=== PATIENT | female | born 1955 | race Caucasian/White ===

== ENCOUNTER → 2018-05-13 | Outpatient (CLI) | payer BC, OTHER ==
--- NOTE | 2018-05-13 15:14 | XR ---
EXAMINATION TYPE: XR chest 2V DATE OF EXAM: 05/13/2018 COMPARISON: 06/06/2010 TECHNIQUE: PA and lateral views submitted. HISTORY: Shortness of breath and cough FINDINGS: The lungs are clear and there is no pneumothorax, pleural effusion, or focal pneumonia. Hyperinflat ion suggests COPD. Atherosclerotic change of aorta. Degenerative change of the spine. IMPRESSION: 1. No acute process.
== END | disposition home or self-care (01) ==
LOC: RADXRYALE 14:52
PROVIDERS: ATTEND Physician Assistant Medical
DX: J18.0 Bronchopneumonia, unspecified organism (principal)
CPT/HCPCS: 71046

== ENCOUNTER → 2018-06-04 | Outpatient (CLI) | payer BC, OTHER ==
--- NOTE | 2018-06-04 11:30 | US ---
EXAMINATION TYPE: US venous doppler duplex LE LT DATE OF EXAM: 06/04/2018 11:19 AM COMPARISON: NONE CLINICAL HISTORY: R609 EDEMA. Calf tightness. No redness. No swelling. No hx of DVT. No blood thin ners. SIDE PERFORMED: Left TECHNIQUE: The lower extremity deep venous system is examined utilizing real time linear array sonog favian with graded compression, doppler sonography and color-flow sonography. VESSELS IMAGED: External Iliac Vein (EIV) Common Femoral Vein Deep Femoral Vein Greater Saphenous Vein * Femoral Vein Popliteal Vein Small Saphenous Vein * Proximal Calf Veins (* superficial vessels) Left Leg: Negative for DVT Grayscale, color doppler, spectral doppler imaging performed of the deep veins of the left lower extr emity. There is normal flow, compressibility, vascular waveforms. IMPRESSION: No sonographic evidence of deep venous thrombosis within the left lower extremity.
== END | disposition home or self-care (01) ==
LOC: RADUSWWP 10:40
PROVIDERS: ATTEND Family Medicine
DX: R60.9 Edema, unspecified (principal)

== ENCOUNTER → 2018-09-28 | Outpatient (CLI) | payer BC ==
--- NOTE | 2018-09-29 13:50 | MM ---
Reason for exam: screening (asymptomatic). Last mammogram was performed 3 years and 8 months ago. History: Patient is postmenopausal and has history of other cancer at age 58. Benign right mammotome panel of the right breast, January 14, 2006. Physical Findings: A clinical breast exam by your physician is recommended on an annual basis and results should be correlated with mammographic findings. MG Screening Mammo w CAD Bilateral CC and MLO view(s) were taken. Prior study comparison: February 09, 2015, bilateral MG diagnostic mammo w CAD [facility]. April 10, 2009, bilateral digital screening mammogram. There are scattered fibroglandular densities. Previous mammotome biopsy in the right breast. Prominent lymph node axillary regions. ASSESSMENT: Benign, BI-RAD 2 RECOMMENDATION: Routine screening mammogram of both breasts in 1 year. Manage on a clinical basis with regard to axillary lymphadenopathy.
== END | disposition home or self-care (01) ==
LOC: RADMAMWWP 07:16
PROVIDERS: ATTEND Family Medicine
DX: Z12.31 Encounter for screening mammogram for malignant neoplasm of breast (principal)
CPT/HCPCS: 77067

== ENCOUNTER → 2018-09-28 | Outpatient (CLI) | payer BC ==
--- NOTE | 2018-09-28 12:32 | CTL ---
EXAMINATION TYPE: CT Low Dose Lung DATE OF EXAM ORDERED: 09/28/2018 HISTORY: . Lung cancer screening CT DLP: 85.[address] CTDI: 2.5 mGy Automated exposure control for dose reduction was used. SCREENING VISIT: Initial COMPARISON: 05/28/2010 TECHNIQUE: Low dose computed tomography scan was performed through the chest at 1 mm thick sections a nd reconstructed images in the coronal plane at [address] DIAGNOSTIC QUALITY: Satisfactory FINDINGS: LUNG NODULES: Present, detailed below: There is a 0.3 cm nodule within the posterior lateral right apex measuring 0.3 cm. Series 4 image 28. There is peripheral based nodule measuring 0.2 cm in the anterior left upper lung field. Series 4 opal ge 36. There is a peripheral 0.2 cm nodule within the right upper midlung. Series 4 image 73. There is a streak opacity and infiltrate within the lingula. Largest portion of this area measures 1. 1 cm in thickness. Series 4 image 177. Findings may be related atelectasis or pneumonia. Underlying m ass is not excluded. Some streak opacities in the posterior right lower lobe may be some atelectasis dependent right lung. This is somewhat more focal measuring 1.1 cm in diameter. Series 4 image 224. LUNGS: COPD: Severity: Mild Fibrosis: Severity: None Lymph nodes: None Other findings: None RIGHT PLEURAL SPACE: Effusion: None Calcification: None Thickening: None Pneumothorax: None LEFT PLEURAL SPACE: Effusion: None Calcification: None Thickening: None Pneumothorax: None HEART: Heart Size: Normal Coronary calcification: Mild Pericardial effusion: None OTHER FINDINGS: Upper abdomen: Normal Bony thorax: Normal Supraclavicular region: Unremarkable Other: Lymphadenopathy within the mediastinum is present. A 1.1 cm lymph node is in the superior medi astinum. Small lymphadenopathy is in the aortopulmonic window. Bilateral axillary adenopathy is prese nt. Several of these on the left are enlarged measuring 1.1 to 1.6 cm in size. IMPRESSION: 1. Scattered small nonspecific nodules. Short-term follow-up in [address] is recommen ded. 2. There are couple of larger areas of increased density more likely related atelectasis. Underlying masses cannot be excluded. Short-term follow-up is also recommended to evaluate these regions at the lung bases. 3. Enlarged axillary and superior mediastinal adenopathy of uncertain etiology. FOLLOW UP CT CHEST RECOMMENDATION: Yes, standard CT chest with contrast in [address] LUNG RAD: Lung-Rad 3 Probably Benign
== END | disposition home or self-care (01) ==
LOC: RADCTMAIN 06:56
PROVIDERS: ATTEND Family Medicine
DX: Z12.2 Encounter for screening for malignant neoplasm of respiratory organs (principal); F17.200 Nicotine dependence, unspecified, uncomplicated; R91.8 Other nonspecific abnormal finding of lung field; R59.0 Localized enlarged lymph nodes

== ENCOUNTER → 2020-08-17 | Outpatient (CLI) | payer OTHER ==
--- NOTE | 2020-08-17 14:34 | XR ---
EXAMINATION TYPE: XR chest 2V DATE OF EXAM: 08/17/2020 COMPARISON: Prior chest x-ray dated 05/13/[address] 09/28/2018 HISTORY: Chest pain TECHNIQUE: Frontal and lateral views of the chest are obtained. FINDINGS: There is a left-sided Port-A-Cath, central venous catheter shows the distal tip overlying s uperior vena cava. There are prominent lung volumes. Interstitial changes are present at the lung bas es. There is increased retrosternal airspace. There is no pleural effusion or pneumothorax seen. Ill- defined density present at the lingula the level of the left heart border likely representing scar. The cardiac silhouette size is within normal limits. The osseous structures are intact, bone minera lization is reduced, there is a spinal curvature. Possible slight loss of height superior endplate of the vertebral body at the level of the thoracic lumbar junction. The aorta is dense. IMPRESSION: No acute cardiopulmonary process.
== END | disposition home or self-care (01) ==
LOC: RADXRYALE 11:02
PROVIDERS: ATTEND Physician Assistant
DX: R07.9 Chest pain, unspecified (principal)
CPT/HCPCS: 71046

== ENCOUNTER → 2020-09-24 | Outpatient (CLI) | payer OTHER ==
--- NOTE | 2020-09-24 10:32 | XR ---
EXAMINATION TYPE: XR thoracic spine complete DATE OF EXAM: 09/24/2020 COMPARISON: NONE HISTORY: Pain TECHNIQUE: 3 views submitted FINDINGS: Alignment is anatomic. Mediport catheter seen is multilevel degenerative change. Some mild superior e ndplate compression deformity in the midthoracic spine of indeterminate age. Slight curvature of the spine. IMPRESSION: 1. Multilevel degenerative disc disease with an age indeterminate very mild superior endplate etta nathanael deformity in the midthoracic spine. Correlate with MRI.
--- NOTE | 2020-09-24 10:58 | XR ---
EXAMINATION TYPE: XR chest 2V DATE OF EXAM: 09/24/2020 COMPARISON: 08/17/2020 TECHNIQUE: PA and lateral views submitted. HISTORY: Shortness of breath FINDINGS: The lungs are clear and there is no pneumothorax, pleural effusion, or focal pneumonia. Hyperinflat ion. Degenerative change of the spine. Mediport catheter noted. Subsegmental changes at the lung base s. Diffuse osteopenia. Biapical pleural thickening. IMPRESSION: 1. COPD with linear atelectasis at the lung bases favored over early infiltrate..
== END | disposition home or self-care (01) ==
LOC: RADXRYALE 09:43
PROVIDERS: ATTEND Physician Assistant Medical
DX: M51.34 Other intervertebral disc degeneration, thoracic region (principal); R07.1 Chest pain on breathing; J44.9 Chronic obstructive pulmonary disease, unspecified; J98.11 Atelectasis
CPT/HCPCS: 71046; 72072

== ENCOUNTER → 2021-06-25 | Outpatient (CLI) | payer MEDICARE, OTHER ==
--- NOTE | 2021-06-25 15:52 | XR ---
EXAMINATION TYPE: XR chest 2V DATE OF EXAM: 06/25/2021 COMPARISON: 09/24/2020 TECHNIQUE: PA and lateral views submitted. HISTORY: Pain FINDINGS: The lungs are clear and there is no pneumothorax, pleural effusion, or focal pneumonia. Linear barboza ges involving the lung bases most typical of atelectasis or scar. Arthropathy of the shoulders. Medip ort catheter noted. There is a 5 mm nodule in the right upper lobe. Hyperinflation suggests COPD and there is degenerative change of the spine. IMPRESSION: 1. No acute process. Correlate for COPD. 2. 5 mm right upper lobe pulmonary nodule too small to characterize recommend short-term follow-up CT chest.
--- NOTE | 2021-06-25 15:58 | XR ---
EXAMINATION TYPE: XR ribs RT DATE OF EXAM: 06/25/2021 CLINICAL HISTORY: Pain TECHNIQUE: 4 views submitted COMPARISON: None FINDINGS: There is no acute fracture. Mediport catheter noted. No definite destructive changes are s een. Arthropathy of the right shoulder. IMPRESSION: 1. No displaced acute fracture. If symptoms persist consider bone scan..
== END | disposition home or self-care (01) ==
LOC: RADXRYALE 15:14
PROVIDERS: ATTEND Physician Assistant Medical
DX: R91.1 Solitary pulmonary nodule (principal); R06.02 Shortness of breath
CPT/HCPCS: 71046

== ENCOUNTER 2021-09-23 13:10 | Inpatient (IN) | payer MEDICARE, OTHER ==
[2021-09-23] MEDS ORDERED: ONDANSETRON ODT 4 MG TAB PO STA (13:16)
[2021-09-23] MEDS ORDERED: HYDROmorphone 0.5 MG/0.5 ML SYRINGE IM STA (13:16)
[2021-09-23 14:43] LABS: Chloride 103 mmol/L (98-107)
--- NOTE | 2021-09-23 14:44 | ED ---
General Adult HPI - General Chief complaint: Shortness of Breath Stated complaint: SOB Time Seen by Provider: 09/23/21 13:11 Source: patient, EMS Mode of arrival: EMS Limitations: no limitations - History of Present Illness Initial comments: Dictation was produced using [employer] dictation software. please excuse any grammatical, word or spelling errors. Chief Complaint: 66-year-old female past medical history of lymphoma presents to the emergency department for shortness of breath, tachypnea and hypoxia History of Present Illness: 66-year-old female she has past medical history of lymphoma. Patient receives chemotherapy. She went to her primary care physician's office. She was seen and evaluated there and found to be short of breath and hypoxic. Patient denies any chest pain. Denies any runny nose, sore throat. No fevers or constitutional symptoms. Patient states she's been short of breath for the last 3-4 days. She had completed a course of antibiotics. Patient denies any lower extremity symptoms. No history of blood clots. The ROS documented in this emergency department record has been reviewed and confirmed by me. Those systems with pertinent positive or negative responses have been documented in the HPI. All other systems are other negative and/or noncontributory. PHYSICAL EXAM: General Impression: Alert and oriented x3, not in acute distress HEENT: Normocephalic atraumatic, extra-ocular movements intact, pupils equal and reactive to light bilaterally, mucous membranes moist. Cardiovascular: Heart regular rate and rhythm Chest: 45 word sentences, no retractions, diminished lung sounds, equal bilaterally Abdomen: abdomen soft, non-tender, non-distended, no organomegaly Musculoskeletal: Pulses present and equal in all extremities, no peripheral edema Motor: no focal deficits noted Neurological: CN II-XII grossly intact, no focal motor or sensory deficits noted Skin: Intact with no visualized rashes Psych: Normal affect and mood ED course: 66-year-old female past medical history of lymphoma presents to the ER for worsening respiratory symptoms. Signs upon arrival shows 88% on room air, heart rate 102, rest of vital signs within acceptable limits. Some supplemental oxygen. EKG shows sinus tachycardia. Was strong clinical concern for pulmonary embolism. Patient went to CT angioma. CT does not show any pulmonary embolism. It did appear to be moderate emphysematous change with anterior lower lung fibrotic change noted. Patient's coronavirus positive. Metabolic panel is normal. She'll be admitted for hypoxia respiratory failure secondary to COVID-19 EKG interpretation: Ventricular rate 15, sinus tachycardia, NH interval 160, QRS 76, QTC 486. No NH prolongation, no QTC prolongation, no ST or T-wave changes noted. - Related Data Home Medications Medication Instructions Recorded Confirmed Fluticasone/Vilanterol [Breo 1 puff INHALATION RT-BID 09/23/21 09/23/21 Ellipta 200-25 Mcg Inhaler] Tiotropium 18 Mcg/Puff [Spiriva] 2 puff INHALATION RT-DAILY 09/23/21 09/23/21 Allergies Allergy/AdvReac Type Severity Reaction Status Date / Time No Known Allergies Allergy Verified 09/23/21 16:06 Review of Systems ROS Statement: Those systems with pertinent positive or pertinent negative responses have been documented in the HPI. ROS Other: All systems not noted in ROS Statement are negative. Past Medical History Past Medical History: Cancer, COPD Additional Past Medical History / Comment(s): Lymphoma History of Any Multi-Drug Resistant Organisms: None Reported Past Surgical History: Appendectomy Past Psychological History: No Psychological Hx Reported Smoking Status: Current every day smoker Past Alcohol Use History: None Reported Past Drug Use History: None Reported - Past Family History Father Family Medical History: Respiratory Disorder Additional Family Medical History / Comment(s): Father from pulmonary fibrosis. Mother Family Medical History: No Reported History Additional Family Medical History / Comment(s): Mother is healthy and 89yrs old. General Exam Limitations: no limitations Course Vital Signs 09/23/21 09/23/21 09/23/21 13:11 13:23 14:00 Temperature 99.4 F Pulse Rate 102 H Respiratory 22 20 Rate Blood Pressure 105/68 O2 Sat by Pulse 88 L 91 L Oximetry 09/23/21 09/23/21 09/23/21 17:27 19:27 21:00 Temperature 97.5 F L Pulse Rate 87 80 74 Respiratory 18 18 20 Rate Blood Pressure 102/68 119/76 105/68 O2 Sat by Pulse 90 L 92 L 96 Oximetry 09/23/21 09/23/21 09/24/21 22:00 23:00 00:00 Temperature Pulse Rate 66 63 60 Respiratory 20 18 18 Rate Blood Pressure 103/70 108/72 O2 Sat by Pulse 95 95 95 Oximetry 09/24/21 09/24/21 09/24/21 01:00 02:00 02:43 Temperature Pulse Rate 67 55 L 57 L Respiratory 18 18 18 Rate Blood Pressure 103/68 O2 Sat by Pulse 94 L 96 88 L Oximetry 09/24/21 09/24/21 09/24/21 04:00 05:00 06:00 Temperature 97.4 F L Pulse Rate 65 60 59 L Respiratory 18 18 18 Rate Blood Pressure 114/69 115/66 118/68 O2 Sat by Pulse 93 L 94 L 91 L Oximetry 09/24/21 09/24/21 09/24/21 07:57 08:17 10:51 Temperature Pulse Rate 76 85 Respiratory 16 24 Rate Blood Pressure 103/64 111/65 O2 Sat by Pulse 94 L 92 L 91 L Oximetry Medical Decision Making - Lab Data Result diagrams: 09/26/21 06:15 09/27/21 06:40 Lab Results 09/23/21 09/23/21 09/23/21 Range/Units 14:24 14:24 14:24 WBC 3.8 (3.8-10.6) k/uL RBC 4.54 (3.80-5.40) m/uL Hgb 14.0 (11.4-16.0) gm/dL Hct 41.0 (34.0-46.0) % MCV 90.4 (80.0-100.0) fL MCH 30.9 (25.0-35.0) pg MCHC 34.2 (31.0-37.0) g/dL RDW 14.9 (11.5-15.5) % Plt Count 182 (150-450) k/uL MPV 9.0 Neutrophils % 78 % Lymphocytes % 11 % Monocytes % 9 % Eosinophils % 0 % Basophils % 0 % Neutrophils # 3.0 (1.3-7.7) k/uL Lymphocytes # 0.4 L (1.0-4.8) k/uL Monocytes # 0.3 (0-1.0) k/uL Eosinophils # 0.0 (0-0.7) k/uL Basophils # 0.0 (0-0.2) k/uL PT 9.8 (9.0-12.0) sec INR 0.9 (<1.2) APTT 24.7 (22.0-30.0) sec Sodium 135 L (137-145) mmol/L Potassium 3.7 (3.5-5.1) mmol/L Chloride 103 (98-107) mmol/L Carbon Dioxide 19 L (22-30) mmol/L Anion Gap 13 mmol/L BUN 12 (7-17) mg/dL Creatinine 0.46 L (0.52-1.04) mg/dL Est GFR (CKD-EPI)AfAm >90 (>60 ml/min/1.73 sqM) Est GFR (CKD-EPI)NonAf >90 (>60 ml/min/1.73 sqM) Glucose 96 (74-99) mg/dL Plasma Lactic Acid Darren (0.7-2.0) mmol/L Calcium 8.6 (8.4-10.2) mg/dL Magnesium 1.7 (1.6-2.3) mg/dL Total Bilirubin 0.3 (0.2-1.3) mg/dL AST 56 H (14-36) U/L ALT 22 (4-34) U/L Alkaline Phosphatase 62 (38-126) U/L NT-Pro-B Natriuret Pep pg/mL Total Protein 6.0 L (6.3-8.2) g/dL Albumin 3.5 (3.5-5.0) g/dL Coronavirus (PCR) (Not Detectd) 09/23/21 09/23/21 09/23/21 Range/Units 14:24 14:24 14:24 WBC (3.8-10.6) k/uL RBC (3.80-5.40) m/uL Hgb (11.4-16.0) gm/dL Hct (34.0-46.0) % MCV (80.0-100.0) fL MCH (25.0-35.0) pg MCHC (31.0-37.0) g/dL RDW (11.5-15.5) % Plt Count (150-450) k/uL MPV Neutrophils % % Lymphocytes % % Monocytes % % Eosinophils % % Basophils % % Neutrophils # (1.3-7.7) k/uL Lymphocytes # (1.0-4.8) k/uL Monocytes # (0-1.0) k/uL Eosinophils # (0-0.7) k/uL Basophils # (0-0.2) k/uL PT (9.0-12.0) sec INR (<1.2) APTT (22.0-30.0) sec Sodium (137-145) mmol/L Potassium (3.5-5.1) mmol/L Chloride (98-107) mmol/L Carbon Dioxide (22-30) mmol/L Anion Gap mmol/L BUN (7-17) mg/dL Creatinine (0.52-1.04) mg/dL Est GFR (CKD-EPI)AfAm (>60 ml/min/1.73 sqM) Est GFR (CKD-EPI)NonAf (>60 ml/min/1.73 sqM) Glucose (74-99) mg/dL Plasma Lactic Acid Darren 1.2 (0.7-2.0) mmol/L Calcium (8.4-10.2) mg/dL Magnesium (1.6-2.3) mg/dL Total Bilirubin (0.2-1.3) mg/dL AST (14-36) U/L ALT (4-34) U/L Alkaline Phosphatase (38-126) U/L NT-Pro-B Natriuret Pep 245 pg/mL Total Protein (6.3-8.2) g/dL Albumin (3.5-5.0) g/dL Coronavirus (PCR) Detected A (Not Detectd) Disposition Clinical Impression: COVID Disposition: ADMITTED IP TO THIS [facility] Condition: Critical
[2021-09-23 14:45] LABS: ALT 22 U/L (4-34); AST 56 U/L (14-36); African American GFR (CKD) >90 (>60 ml/min/1.73 sqM); Albumin 3.5 g/dL (3.5-5.0); Alkaline Phosphatase 62 U/L (38-126); Anion Gap 13 mmol/L; Blood Urea Nitrogen 12 mg/dL (7-17); Calcium 8.6 mg/dL (8.4-10.2); Carbon Dioxide 19 mmol/L (22-30); Glucose 96 mg/dL (74-99); Magnesium 1.7 mg/dL (1.6-2.3); Non-African American GFR(CKD) >90 (>60 ml/min/1.73 sqM); Potassium 3.7 mmol/L (3.5-5.1); Sodium 135 mmol/L (137-145); Total Bilirubin 0.3 mg/dL (0.2-1.3)
[2021-09-23] MEDS ORDERED: DEXAMETHASONE SOD PHOSPHATE 10 MG/ML 1 ML VIAL IV STA (14:53)
--- NOTE | 2021-09-23 14:53 | CT ---
EXAMINATION TYPE: CT angio chest DATE OF EXAM: 09/23/2021 COMPARISON: Chest CT June 06, 2010 HISTORY: SOB, elevated d dimer, lymphoma CT DLP: 227.5 mGycm. Automated Exposure Control for Dose Reduction was Utilized. CONTRAST: CTA scan of the thorax is performed with IV Contrast, patient injected with 71 mL of Isovue 370, pulm onary embolism protocol. MIP Images are created on CT scanner and reviewed. FINDINGS: LUNGS: Moderate underlying emphysematous change is redemonstrated greatest in the upper lungs. Modera te parenchymal fibrotic changes in the mid to lower lungs greatest anteriorly is now present new from prior study. No new Greater than 5 mm noncalcified pulmonary nodules or masses. No pleural effusion or pneumothorax seen bilaterally. MEDIASTINUM: There is satisfactory enhancement of the pulmonary artery and its branches, there is no CT evidence for pulmonary embolism. Satisfactory enhancement of the aorta with moderate peripheral p laque in the aortic arch and descending aorta. There are no new greater than 1 cm hilar or mediastina l lymph nodes. No cardiomegaly or pericardial effusion is seen. Coronary artery calcifications rede monstrated. Suspected lower pole right thyroid nodule coronal image 71 extends into anterosuperior me diastinum unchanged from 2018 low dose lung screening CT OTHER: Left-sided subclavian Mediport catheter has tip terminating in SVC. IMPRESSION: No CT evidence for acute pulmonary embolism. Moderate emphysematous change redemonstrated . New moderate anterior lower lung fibrotic changes noted.
[2021-09-23 14:54] LABS: INR 0.9 (<1.2); Partial Thromboplastin Time 24.7 sec (22.0-30.0); Prothrombin Time 9.8 sec (9.0-12.0)
[2021-09-23] MEDS ORDERED: NALOXONE 0.4 MG/ML 1 ML VIAL IV PRN (14:56)
[2021-09-23] MEDS ORDERED: ACETAMINOPHEN TAB 325 MG TAB PO PRN (14:56)
[2021-09-23] MEDS: SODIUM CHLORIDE 0.9% 1,000 ML IV SCH (15:02)
[2021-09-23 15:53] LABS: Basophils % (A) 0 %; Eosinophils % (A) 0 %; Lymphocytes # (A) 0.4 k/uL (1.0-4.8); Lymphocytes % (A) 11 %; MCH 30.9 pg (25.0-35.0); MCHC 34.2 g/dL (31.0-37.0); MCV 90.4 fL (80.0-100.0); Monocytes # (A) 0.3 k/uL (0-1.0); Monocytes % (A) 9 %; Neutrophils % (A) 78 %; Platelet Count 182 k/uL (150-450); RBC 4.54 m/uL (3.80-5.40); RDW 14.9 % (11.5-15.5); WBC 3.8 k/uL (3.8-10.6)
--- NOTE | 2021-09-23 15:55 | P.HPIM ---
History of Present Illness Comments of shortness of breath nausea generalized weakness denied any fever patient recently completed chemotherapy in early August for lymphoma. Patient denied dysuria nausea vomiting patient is found to have Covid 19. Patient had a CT angios the chest which did not show any significant infiltrate but did show some fibrotic changes and emphysematous changes no pulmonary embolus him on the CT although patient is requiring 5 L of oxygen at this time. Pulmonary was consulted patient doesn't have any wheezing on exam patient does smoke. REVIEW OF SYSTEMS: CONSTITUTIONAL: As mentioned in HPI HEENT: No recent visual problems or hearing problems. Denied any sore throat. CARDIOVASCULAR: No chest pain, orthopnea, PND, no palpitations, no syncope. PULMONARY: As mentioned in HPI GASTROINTESTINAL: No diarrhea, no nausea, no vomiting, no abdominal pain. NEUROLOGICAL: No headaches, no weakness, no numbness. HEMATOLOGICAL: Denies any bleeding or petechiae. GENITOURINARY: Denies any burning micturition, frequency, or urgency. MUSCULOSKELETAL/RHEUMATOLOGICAL: Denies any joint pain, swelling, or any muscle pain. ENDOCRINE: Denies any polyuria or polydipsia. The rest of the 14-point review of systems is negative. PHYSICAL EXAMINATION: GENERAL: The patient is alert and oriented x3, not in any acute distress. Well developed, well nourished. HEENT: Pupils are round and equally reacting to light. EOMI. No scleral icterus. No conjunctival pallor. Normocephalic, atraumatic. No pharyngeal erythema. No thyromegaly. CARDIOVASCULAR: S1 and S2 present. No murmurs, rubs, or gallops. PULMONARY: Chest is clear to auscultation, no wheezing or crackles. ABDOMEN: Soft, nontender, nondistended, normoactive bowel sounds. No palpable organomegaly. MUSCULOSKELETAL: No joint swelling or deformity. EXTREMITIES: No cyanosis, clubbing, or pedal edema. NEUROLOGICAL: Gross neurological examination did not reveal any focal deficits. SKIN: No rashes. Assessment and plan -Acute Hypoxic respiratory failure probably secondary to Covid 19 pneumonia pulmonology was consulted patient will be started on Covid 19 vitamins, Decadron. -Mild hypovolemic hyponatremia was started on IV fluids, will obtain a BNP -Nicotine use history: Counseling was provided -Lymphoma: Recently completed chemotherapy - DVT prophylaxis Past Medical History Past Medical History: Cancer, COPD Additional Past Medical History / Comment(s): Lymphoma History of Any Multi-Drug Resistant Organisms: None Reported Past Surgical History: Appendectomy Past Psychological History: No Psychological Hx Reported Smoking Status: Current every day smoker Past Alcohol Use History: None Reported Past Drug Use History: None Reported Medications and Allergies Allergies Allergy/AdvReac Type Severity Reaction Status Date / Time No Known Allergies Allergy Verified 09/23/21 13:21 Physical Exam Vitals: Vital Signs Temp Pulse Resp BP Pulse Ox 09/23/21 14:00 20 09/23/21 13:23 91 L 09/23/21 13:11 99.4 F 102 H 22 105/68 88 L Intake and Output 09/23/21 09/23/21 09/23/21 06:59 14:59 22:59 Other: Weight 69.4 kg Results CBC & Chem 7: 09/23/21 14:24 09/23/21 14:24 Labs: Abnormal Lab Results - Last 24 Hours (Table) 09/23/21 09/23/21 09/23/21 Range/Units 14:24 14:24 14:24 Lymphocytes # 0.4 L (1.0-4.8) k/uL Sodium 135 L (137-145) mmol/L Carbon Dioxide 19 L (22-30) mmol/L Creatinine 0.46 L (0.52-1.04) mg/dL AST 56 H (14-36) U/L Total Protein 6.0 L (6.3-8.2) g/dL Coronavirus (PCR) Detected A (Not Detectd)
[2021-09-23] MEDS: ASCORBIC ACID 500 MG TAB PO SCH (21:31)
[2021-09-24] MEDS: ENOXAPARIN 40 MG/0.4 ML SYRINGE SQ SCH (08:18)
[2021-09-24] MEDS: ZINC SULFATE 220 MG CAP PO SCH (08:19)
[2021-09-24] MEDS: ASCORBIC ACID 500 MG TAB PO SCH ×2 (08:19→20:10)
[2021-09-24] MEDS: dexAMETHasone 2 MG TAB PO SCH (08:19)
[2021-09-24 09:30] LABS: HCT 41.3 % (37.2-46.3); HGB 13.2 g/dL (12.0-15.0); MCH 29.4 pg (27.0-32.0); Mean Platelet Volume 12.2 fL (9.5-12.2); Platelet Count 153 X 10*3/uL (140-440); RBC 4.49 X 10*6/uL (4.10-5.20)
[2021-09-24] MEDS ORDERED: REMDESIVIR 200 MG in SODIUM CHLORIDE 0.9% 250 ML IVPB ONE (11:00)
--- NOTE | 2021-09-24 11:39 | P.CNPUL ---
History of Present Illness Consult date: 09/24/21 Requesting physician: Lars Ardon Reason for consult: dyspnea, hypoxemia, abnormal CXR/CT Chief complaint: Shortness of breath, weakness, poor appetite History of present illness: This is a 66-year-old female patient with a known history of chronic obstructive pulmonary disease and maintained on Breo and Spiriva in the outpatient setting, chronic tobacco dependence, lymphoma and received her last round of R CHOP on 08/26/[address] Kimbrough out of [place]. He presented here to the emergency room yesterday with increasing shortness of breath, poor appetite, generalized weakness and fatigue. She tested positive for COVID-19. She did receive the vaccination in March but no booster. DT angiogram ruled out pulmonary embolism. There is moderate emphysema and fibrotic changes, no significant groundglass opacities. Count 1.5. Hemoglobin 13.2. Leukocytes 0.4. D-dimer 0.86. Sodium 135. Potassium 3.6. Creatinine 0.46. AST 56. ALT 22. ProBNP 245. She's been initiated on Decadron, Lovenox, vitamin supplements. Continued on rhonchi dilators. She is seen today in consultation in the emergency department. She is currently sitting up on the stretcher. Awake and alert in no acute distress. Some dyspnea with minimal activity and conversation. She is requiring 6 L high flow nasal cannula to maintain O2 saturation in the 90s. Review of Systems REVIEW OF SYSTEMS: CONSTITUTIONAL: Generalized weakness, fatigue. Denies any recent significant weight loss or weight gain. EYES: Denies change in vision. EARS, NOSE, MOUTH, THROAT: Denies headaches, denies sore throat. CARDIOVASCULAR: Denies chest pain, palpitations or syncopal episodes. RESPIRATORY: Positive for shortness of breath, cough, congestion no hemoptysis. GASTROINTESTINAL: Denies change in appetite, denies abdominal pain GENITOURINARY: Denies hematuria, denies infections. MUSKULOSKELETAL: Denies pain, denies swelling. INTEGUMENTARY: Denies rash, denies eczema. NEUROLOGICAL: Denies recent memory loss, no recent seizure activity. PSYCHIATRIC: Denies anxiety, denies depression. HEMATOLOGIC/LYMPHATIC: Denies anemia, denies enlarged lymph nodes. Past Medical History Past Medical History: Cancer, COPD Additional Past Medical History / Comment(s): Lymphoma diagnosed in 2010 or 2011/completed chemo (RCHOP) in August 2021/being treated in [facility], bronchitis, diverticular disease, stomach ulcer in her 20s. History of Any Multi-Drug Resistant Organisms: None Reported Past Surgical History: Appendectomy, Breast Surgery Additional Past Surgical History / Comment(s): Bone marrow biopsy, several lymph node biopsies, colonoscopy, R breast benign biopsy, bilateral cataract removal/lens implants. Past Anesthesia/Blood Transfusion Reactions: No Reported Reaction, Motion Sickness Smoking Status: Current every day smoker - Past Family History Father Family Medical History: Respiratory Disorder Additional Family Medical History / Comment(s): Father from pulmonary fibrosis. Mother Family Medical History: No Reported History Additional Family Medical History / Comment(s): Mother is healthy and 89yrs old. Medications and Allergies Home Medications Medication Instructions Recorded Confirmed Type Fluticasone/Vilanterol [Breo 1 puff INHALATION RT-BID 09/23/21 09/23/21 History Ellipta 200-25 Mcg Inhaler] Tiotropium 18 Mcg/Puff [Spiriva] 2 puff INHALATION RT-DAILY 09/23/21 09/23/21 History Allergies Allergy/AdvReac Type Severity Reaction Status Date / Time No Known Allergies Allergy Verified 09/23/21 16:06 Physical Exam Vitals: Vital Signs Temp Pulse Resp BP Pulse Ox 09/24/21 10:51 85 24 111/65 91 L 09/24/21 08:17 76 16 103/64 92 L 09/24/21 07:57 94 L 09/24/21 06:00 97.4 F L 59 L 18 118/68 91 L 09/24/21 05:00 60 18 115/66 94 L 09/24/21 04:00 65 18 114/69 93 L 09/24/21 02:43 57 L 18 88 L 09/24/21 02:00 55 L 18 96 09/24/21 01:00 67 18 103/68 94 L 09/24/21 00:00 60 18 95 09/23/21 23:00 63 18 108/72 95 09/23/21 22:00 66 20 103/70 95 09/23/21 21:00 97.5 F L 74 20 105/68 96 09/23/21 19:27 80 18 119/76 92 L 09/23/21 17:27 87 18 102/68 90 L 09/23/21 14:00 20 09/23/21 13:23 91 L 09/23/21 13:11 99.4 F 102 H 22 105/68 88 L Intake and Output 09/23/21 09/24/21 09/24/21 22:59 06:59 14:59 Other: Weight 69.4 kg GENERAL EXAM: Alert, very pleasant 66-year-old female patient, on 6 L nasal ca nnula, fairly comfortable in no apparent distress. HEAD: Normocephalic. EYES: Normal reaction of pupils, equal size. NOSE: Clear with pink turbinates. THROAT: No erythema or exudates. NECK: No masses, no JVD. CHEST: No chest wall deformity. LUNGS: Equal air entry with faint end expiratory wheeze, diminished. CVS: S1 and S2 normal with no audible murmur, regular rhythm. ABDOMEN: No hepatosplenomegaly, normal bowel sounds, no guarding or rigidity. SPINE: No scoliosis or deformity SKIN: No rashes CENTRAL NERVOUS SYSTEM: No focal deficits, tone is normal in all 4 extremities. EXTREMITIES: There is no peripheral edema. No clubbing, no cyanosis. Peripheral pulses are intact. Results - Laboratory Findings CBC and BMP: 09/24/21 05:48 09/23/21 14:24 PT/INR, D-dimer PT 9.8 sec (9.0-12.0) 09/23/21 14:24 INR 0.9 (<1.2) 09/23/21 14:24 D-Dimer 0.86 mg/L FEU (<0.60) H 09/23/21 17:27 Abnormal lab findings: Abnormal Labs 09/23/21 09/23/21 09/23/21 14:24 14:24 14:24 WBC Lymphocytes # 0.4 L D-Dimer Sodium 135 L Carbon Dioxide 19 L Creatinine 0.46 L AST 56 H Total Protein 6.0 L Coronavirus (PCR) Detected A 09/23/21 09/24/21 17:27 05:48 WBC 1.50 L Lymphocytes # D-Dimer 0.86 H Sodium Carbon Dioxide Creatinine AST Total Protein Coronavirus (PCR) - Diagnostic Findings CT scan - chest: image reviewed Assessment and Plan Assessment: 1 Acute hypoxemic respiratory failure secondary to COVID-19 infection. Vaccinated. No booster. Initiated on Remdesivir today 09/24/2021. 2 Lymphoma, recently received R CHOP on 08/26/2021 at [facility] 3 Acute exacerbation of chronic obstructive pulmonary disease 4 Chronic and ongoing tobacco dependence Plan: The patient was seen and evaluated CAT scan and labs reviewed Initiate Remdesivir Continue Decadron, Lovenox, vitamin supplements Continue bronchodilators Check inflammatory markers Check a pro-calcitonin Chest x-ray in a.m. Titrate the FiO2 as tolerated We will continue to follow and make further recommendations based on her clinical status I, the cosigning physician, performed a history & physical examination of the patient. Lungs sounds with end expiratory wheeze, diminished Maintaining good O2 saturations in the 90s on 6 L/m per nasal cannula. I discussed the assessment and plan of care with my nurse practitioner, Kusum Blandon. I attest to the above consultation as dictated by her. Time with Patient: Greater than 30
[2021-09-24 11:44] LABS: African American GFR (CKD) 117.7 (60.0-200.0); BUN/Creat Ratio 25.2 Ratio (12.00-20.00); Blood Urea Nitrogen 12.6 mg/dL (9.0-27.0); Calcium 8.8 mg/dL (8.7-10.3); Non-African American GFR(CKD) 101.6 (60.0-200.0); Potassium 4.6 mmol/L (3.5-5.5)
[2021-09-24] MEDS: SYMBICORT 160-4.5 MCG INHALER INHALATION SCH ×2 (11:57→19:35)
--- NOTE | 2021-09-24 14:41 | P.PN ---
Subjective Progress Note Date: 09/24/21 Comments of shortness of breath nausea generalized weakness denied any fever patient recently completed chemotherapy in early August for lymphoma. Patient denied dysuria nausea vomiting patient is found to have Covid 19. Patient had a [address] angios the chest which did not show any significant infiltrate but did show some fibrotic changes and emphysematous changes no pulmonary embolus him on the CT although patient is requiring 5 L of oxygen at this time. Pulmonary was consulted patient doesn't have any wheezing on exam patient does smoke. 09/24/2021 Patient evaluated in the EC while pending bed on the medical floor. She denies any cough, does report some shortness of breath at rest. She is now on 6L Nasal cannula with an oxygen saturation of 92%. She denies any chest pain today. Denies nausea vomiting, reports diarrhea today. Blood pressures on the lower side 92/60 while in the room, patient states this is low for her she usually runs in the 130's to 140's. Heart rate is 85. Labs today show a WBC count of 1.50, hemoglobin of 13.2, D-Dimer yesterday 0.86, sodium 141, potassium 4.6, B 12, Creatinine 0.5. Glucose 138. Repeat labs and inflammatory markers will be repeated tomorrow. She is being followed closely by pulmonary services. Patient follows with oncology at [facility]. No other complaints today. She is on Vitamin C, Decadron, lovenox, zinc, and was started on Remdesivir. Additionally, she continues to smoke about 1/2 pack per day, history of COPD on symbicort. Prognosis is guarded, monitor respiratory status closely. ROS Constitutional: Denies fever, chills, reports fatigue Cardio vascular: denied any chest pain, palpitations Gastrointestinal denied any nausea vomiting, reports diarrhea, denies blood in the stool Pulmonary: Denied any cough, reports shortness of breath with exertion Neurologic denied any new focal deficits All inpatient medications were reviewed and appropriate changes in these medications as dictated in the interval history and assessment and plan. PHYSICAL EXAMINATION: GENERAL: The patient is alert and oriented x3, not in any acute distress. Well developed, well nourished. on Nasal cannula HEENT: Pupils are round and equally reacting to light. EOMI. No scleral icterus. No conjunctival pallor. Normocephalic, atraumatic. No pharyngeal erythema. No thyromegaly. CARDIOVASCULAR: S1 and S2 present. No murmurs, rubs, or gallops. PULMONARY: Expiratory wheezing, diminished lung sounds all lung moss ABDOMEN: Soft, nontender, nondistended, normoactive bowel sounds. No palpable organomegaly. MUSCULOSKELETAL: No joint swelling or deformity. EXTREMITIES: No cyanosis, clubbing, or pedal edema. NEUROLOGICAL: Gross neurological examination did not reveal any focal deficits. SKIN: No rashes. Assessment and plan Assessment -Acute Hypoxic respiratory failure secondary to Covid 19 pneumonia, Started on remdesivir -COPD with acute exacerbation secondary to above -Lymphoma with recent chemotherapy in Nov, WBC count 1.5 -Mild hypovolemic hyponatremia, -Nicotine use history: Counseling was provided DVT prophylaxis:Lovenox GI: prophylaxis: Pepcid Plan Continue oxygen support, titrate as needed Continue with Remdesivir, Zinc, Lovenox, decadron, vitamins Continue to encourage oral intake Repeat labs and inflammatory markers in the AM Chest x-ray in the AM Prognosis remains guarded for this patient Objective - Vital Signs Vital signs: Vital Signs Temp 97.4 F L 09/24/21 06:00 Pulse 76 09/24/21 08:17 Resp 16 09/24/21 08:17 BP 103/64 09/24/21 08:17 Pulse Ox 92 L 09/24/21 08:17 Intake & Output 09/23/21 09/24/21 09/24/21 18:59 06:59 18:59 Weight 69.4 kg - Labs CBC & Chem 7: 09/24/21 05:48 09/24/21 05:48 Labs: Abnormal Lab Results - Last 24 Hours (Table) 09/23/21 09/23/21 09/23/21 Range/Units 14:24 14:24 14:24 Lymphocytes # 0.4 L (1.0-4.8) k/uL D-Dimer (<0.60) mg/L FEU Sodium 135 L (137-145) mmol/L Carbon Dioxide 19 L (22-30) mmol/L Creatinine 0.46 L (0.52-1.04) mg/dL AST 56 H (14-36) U/L Total Protein 6.0 L (6.3-8.2) g/dL Coronavirus (PCR) Detected A (Not Detectd) 09/23/21 Range/Units 17:27 Lymphocytes # (1.0-4.8) k/uL D-Dimer 0.86 H (<0.60) mg/L FEU Sodium (137-145) mmol/L Carbon Dioxide (22-30) mmol/L Creatinine (0.52-1.04) mg/dL AST (14-36) U/L Total Protein (6.3-8.2) g/dL Coronavirus (PCR) (Not Detectd)
[2021-09-24] MEDS: TIOTROPIUM 2.5 MCG INHALER INHALATION SCH (17:27)
[2021-09-24] MEDS: SODIUM CHLORIDE 0.9% 1,000 ML IV SCH (20:10)
[2021-09-25] MEDS: FAMOTIDINE 20 MG TAB PO SCH (08:55)
[2021-09-25] MEDS: ZINC SULFATE 220 MG CAP PO SCH (08:55)
[2021-09-25] MEDS: ASCORBIC ACID 500 MG TAB PO SCH ×2 (08:55→21:16)
[2021-09-25] MEDS: ENOXAPARIN 40 MG/0.4 ML SYRINGE SQ SCH (08:55)
[2021-09-25] MEDS: dexAMETHasone 2 MG TAB PO SCH (08:55)
--- NOTE | 2021-09-25 09:33 | P.PN ---
Subjective Progress Note Date: 09/25/21 This is a 66-year-old female patient with a known history of chronic obstructive pulmonary disease and maintained on Breo and Spiriva in the outpatient setting, chronic tobacco dependence, lymphoma and received her last round of R CHOP on 08/26/[address] Kimbrough out of [place]. He presented here to the emergency room yesterday with increasing shortness of breath, poor appetite, generalized weakness and fatigue. She tested positive for COVID-19. She did receive the vaccination in March but no booster. DT angiogram ruled out pulmonary embolism. There is moderate emphysema and fibrotic changes, no significant groundglass opacities. Count 1.5. Hemoglobin 13.2. Leukocytes 0.4. D-dimer 0.86. Sodium 135. Potassium 3.6. Creatinine 0.46. AST 56. ALT 22. ProBNP 245. She's been initiated on Decadron, Lovenox, vitamin supplements. Continued on rhonchi dilators. She is seen today in consultation in the emergency department. She is currently sitting up on the stretcher. A wake and alert in no acute distress. Some dyspnea with minimal activity and conversation. She is requiring 6 L high flow nasal cannula to maintain O2 saturation in the 90s. On 2020 patient seen in follow-up on medical surgical floor, she is currently on 6 L of oxygen, her pulse ox is 92 to 97%. She is awake and alert, she states she is not coughing much today, improved since yesterday, she reports some nasal drainage, at times clear at times it does have some color, she is mildly dyspneic with conversation, however her lung sounds are clear, without crackles, wheezes or rhonchi. Patient does have a history of COPD, severity which is not known to us at this time, she states she never had a PFT, however she does not wear oxygen on a regular basis, she is maintained on Breo and Sp iriva on an outpatient basis. Denies any chest discomfort, she remains on Decadron, she remains on prophylactic Lovenox, CTA chest was negative for acute pulmonary embolism, there were moderate emphysematous changes and moderate anterior lower lung fibrotic changes which was new. Patient was started on Remdesivir yesterday on 09/24/2021, today is day 2 of treatment. Her labs have been reviewed, d-dimer is improved and is down to 0.50, pro calcitonin level was negative, inflammatory markers are pending for today. Objective - Vital Signs Vital signs: Vital Signs Temp 97.6 F 09/25/21 06:00 Pulse 61 09/25/21 09:00 Resp 18 09/25/21 09:00 BP 123/76 09/25/21 06:00 Pulse Ox 97 09/25/21 06:00 Intake & Output 09/24/21 09/25/21 09/25/21 18:59 06:59 18:59 Intake Total 190 Balance 190 Weight 69.4 kg Intake: Intake, IV Titration 40 Amount Sodium Chloride 0.9% 1, 40 000 ml @ 20 mls/hr IV . Q24H ALEXANDRE Rx#:[id number] Oral 150 Other: # Voids 1 - Exam GENERAL EXAM: Alert, very pleasant, 66-year-old white female, on 6 L of oxygen the pulse ox between 92-97% mildly dyspneic with conversation, but no acute distress HEAD: Normocephalic/atraumatic. EYES: Normal reaction of pupils, equal size. Conjunctiva pink, sclera white. NOSE: Clear with pink turbinates. THROAT: No erythema or exudates. NECK: No masses, no JVD, no thyroid enlargement, no adenopathy. CHEST: No chest wall deformity. Symmetrical expansion. LUNGS: Equal air entry with no crackles, wheeze, rhonchi or dullness. CVS: Regular rate and rhythm, normal S1 and S2, no gallops, no murmurs, no rubs ABDOMEN: Soft, nontender. No hepatosplenomegaly, normal bowel sounds, no guarding or rigidity. EXTREMITIES: No clubbing, no edema, no cyanosis, 2+ pulses and upper and lower extremities. MUSCULOSKELETAL: Muscle strength and tone normal. SPINE: No scoliosis or deformity SKIN: No rashes CENTRAL NERVOUS SYSTEM: Alert and oriented -3. No focal deficits, tone is normal in all 4 extremities. PSYCHIATRIC: Alert and oriented -3. Appropriate affect. Intact judgment and insight. - Labs CBC & Chem 7: 09/24/21 05:48 09/24/21 05:48 Labs: Abnormal Lab Results - Last 24 Hours (Table) 09/24/21 09/24/21 Range/Units 05:48 05:48 WBC 1.50 L (4.50-10.00) X 10*3/uL Carbon Dioxide 15.0 L (20.0-27.5) mmol/L Anion Gap 19.00 H (10.00-18.00) mmol/L Creatinine 0.5 L (0.6-1.5) mg/dL BUN/Creatinine Ratio 25.20 H (12.00-20.00) Ratio Glucose 138 H (70-110) mg/dL Assessment and Plan Plan: Assessment: #1. Acute hypoxic respiratory failure related to acute COVID-19 infection. Patient is status post completed vaccination in February 2021, has not received a booster yet. Initiated on Remdesivir on 09/24/2021 #2. Non-Hodgkin's B-cell lymphoma, patient has completed our CHOP therapy on 08/27/2021 at [facility], follows with Dr. Kimbrough #3. Acute exacerbation of COPD, improving #4. Nicotine dependence, carries over [id number] smoking history #5. History of COPD, not oxygen dependent at baseline, maintained on Breo Ellipta and Spiriva on an outpatient basis #6. Cataract surgery bilateral #7. Pulmonary fibrotic changes in the left lung, as seen on the CTA chest #8. History of diverticulosis Plan: Continue Remdesivir, today is day 2 of treatment Continue current dose Decadron Continue Symbicort, Spiriva, Continue current dose Lovenox Obtain follow-up d-dimer and inflammatory markers Wean FiO2 to keep O2 saturation is at or above 90% We'll continue to follow her clinical course make recommendations accordingly I performed a history & physical examination of the patient and discussed their management with my nurse practitioner, Brenda Figueroa. I reviewed the nurse practitioner's note and agree with the documented findings and plan of care. Lung sounds are positive for diffuse wheezes throughout the lung moss. The findings and the impression was discussed with the patient. I attest to the documentation by the nurse practitioner. Time with Patient: Less than 30
[2021-09-25] MEDS: TIOTROPIUM 2.5 MCG INHALER INHALATION SCH ×2 (09:38→23:33)
[2021-09-25] MEDS: SYMBICORT 160-4.5 MCG INHALER INHALATION SCH ×2 (09:38→20:49)
[2021-09-25 09:44] LABS: Basophils # (A) 0 X 10*3/uL (0.00-0.10); Basophils % (A) 0 %; Eosinophils # (A) 0 X 10*3/uL (0.04-0.35); Eosinophils % (A) 0 %; HCT 37.7 % (37.2-46.3); HGB 12.3 g/dL (12.0-15.0); Lymphocytes # (A) 0.34 X 10*3/uL (0.90-5.00); Lymphocytes % (A) 9.9 %; MCH 29.7 pg (27.0-32.0); MCHC 32.6 g/dL (32.0-37.0); MCV 91.1 fL (80.0-97.0); Mean Platelet Volume 12.1 fL (9.5-12.2); Monocytes # (A) 0.49 X 10*3/uL (0.20-1.00); Monocytes % (A) 14.3 %; Neutrophils # (A) 2.57 X 10*3/uL (1.80-7.70); Neutrophils % (A) 75.2 %; Platelet Count 192 X 10*3/uL (140-440); RBC 4.14 X 10*6/uL (4.10-5.20); RDW 14.2 % (11.5-14.5); WBC 3.42 X 10*3/uL (4.50-10.00)
[2021-09-25] MEDS: REMDESIVIR 100 MG in SODIUM CHLORIDE 0.9% 250 ML IVPB SCH (10:22)
[2021-09-25 10:49] LABS: LDH 288 U/L (120-246)
[2021-09-25 12:00] LABS: ALT 22 U/L (8-44); AST 39 U/L (13-35); African American GFR (CKD) 117.9 (60.0-200.0); Albumin 3.3 g/dL (3.8-4.9); Albumin/Globulin Ratio 1.88 (1.60-3.17); Alkaline Phosphatase 64 U/L (41-126); BUN/Creat Ratio 42.97 Ratio (12.00-20.00); Blood Urea Nitrogen 21.4 mg/dL (9.0-27.0); Calcium 8.7 mg/dL (8.7-10.3); Carbon Dioxide 20.9 mmol/L (20.0-27.5); Chloride 108 mmol/L (96-109); Globulin 1.8 g/dL (1.6-3.3); Glucose 95 mg/dL (70-110); Non-African American GFR(CKD) 101.7 (60.0-200.0); Sodium 141 mmol/L (135-145); Total Bilirubin <0.20 mg/dL (0.30-1.20)
[2021-09-25 14:40] VITALS: BMI 28.0
--- NOTE | 2021-09-25 15:10 | P.PN ---
Subjective Progress Note Date: 09/25/21 66-year-old female presents with shortness of breath nausea generalized weakness denied any fever patient recently completed chemotherapy in early August for lymphoma. Patient denied dysuria nausea vomiting patient is found to have Covid 19. Patient had a CT angios the chest which did not show any significant infiltrate but did show some fibrotic changes and emphysematous changes no pulmonary embolus him on the CT although patient is requiring 5 L of oxygen at this time. Pulmonary was consulted patient doesn't have any wheezing on exam patient does smoke. 09/24/2021 Patient evaluated in the EC while pending bed on the medical floor. She denies any cough, does report some shortness of breath at rest. She is now on 6L Nasal cannula with an oxygen saturation of 92%. She denies any chest pain today. Denies nausea vomiting, reports diarrhea today. Blood pressures on the lower side 92/60 while in the room, patient states this is low for her she usually runs in the 130's to 140's. Heart rate is 85. Labs today show a WBC count of 1.50, hemoglobin of 13.2, D-Dimer yesterday 0.86, sodium 141, potassium 4.6, B 12, Creatinine 0.5. Glucose 138. Repeat labs and inflammatory markers will be repeated tomorrow. She is being followed closely by pulmonary services. Patient follows with oncology at [place]. No other complaints today. She is on Vitamin C, Decadron, lovenox, zinc, and was started on Remdesivir. Additionally, she continues to smoke about 1/2 pack per day, history of COPD on symbicort. Prognosis is guarded, monitor respiratory status closely. 09/25/2021 Patient is seen and evaluated in follow-up continues on 6 L of oxygen via nasal cannula maintaining oxygen saturation of 90%. Patient has had 97% on 6 L via nasal cannula this morning and denies any worsening shortness of breath. Pulmonary is following and discussed with the patient about attempting to maintain 5 L of oxygen with oxygen saturations above 90% and will consider discharging home if cleared by pulmonary. Patient is continued on Remdesivir date 2 along with dexamethasone and inhalers along with Lovenox and will continue. Patient is extremely anxious to go home and states she feels she would be better at home although still requiring 6 L of oxygen. Case management following and arrangements for home oxygen are being planned. Labs: White blood, 3.42, hemoglobin is 12.3, platelets are 192, d-dimer is negative at 0.5, sodium is 141, potassium is 4.0, creatinine is 0.5, liver functions trending down, LDH is 288 and pro-calcitonin yesterday was negative. ROS Constitutional: Denies fever, chills, reports fatigue, anxious about wanting to go home Cardio vascular: denied any chest pain, palpitations Gastrointestinal denied any nausea vomiting, reports diarrhea, denies blood in the stool Pulmonary: Denied any cough, reports shortness of breath with exertion, reports no worsening Neurologic denied any new focal deficits All inpatient medications were reviewed and appropriate changes in these medications as dictated in the interval history and assessment and plan. Active Medications Acetaminophen (Acetaminophen Tab 325 Mg Tab) 650 mg PO Q6HR PRN PRN Reason: Mild Pain or Fever > 100.5 Ascorbic Acid (Ascorbic Acid 500 Mg Tab) 500 mg PO BID [facility] Last Admin: 09/25/21 08:55 Dose: 500 mg Documented by: Budesonide/Formoterol Fumarate (Symbicort 160-4.5 Mcg Inhaler) 2 puff INHALATION RT-BID [facility] Last Admin: 09/25/21 09:38 Dose: 2 puff Documented by: Dexamethasone (Dexamethasone 2 Mg Tab) 6 mg PO DAILY [facility] Last Admin: 09/25/21 08:55 Dose: 6 mg Documented by: Enoxaparin Sodium (Enoxaparin 40 Mg/0.4 Ml Syringe) 40 mg SQ DAILY [facility] Last Admin: 09/25/21 08:55 Dose: 40 mg Documented by: Famotidine (Famotidine 20 Mg Tab) 20 mg PO DAILY [facility] Last Admin: 09/25/21 08:55 Dose: 20 mg Documented by: Sodium Chloride (Saline 0.9%) 1,000 mls @ 20 mls/hr IV .Q24H [facility] Last Admin: 09/24/21 20:10 Dose: 20 mls/hr Documented by: Remdesivir 100 mg/ Sodium (Chloride) 250 mls @ 250 mls/hr IVPB DAILY@1100 [facility] Stop: 09/28/21 11:59 Last Admin: 09/25/21 10:22 Dose: 250 mls/hr Documented by: Naloxone HCl (Naloxone 0.4 Mg/Ml 1 Ml Vial) 0.2 mg IV Q2M PRN PRN Reason: Opioid Reversal Tiotropium [place] (Tiotropium 2.5 Mcg Inhaler) 2 puff INHALATION RT-DAILY [facility] Last Admin: 09/25/21 09:38 Dose: 2 puff Documented by: Zinc Sulfate (Zinc Sulfate 220 Mg Cap) 220 mg PO DAILY [facility] Last Admin: 09/25/21 08:55 Dose: 220 mg Documented by: PHYSICAL EXAMINATION: GENERAL: The patient is alert and oriented x3, not in any acute distress. Well developed, well nourished. on Nasal cannula 6 liters HEENT: Pupils are round and equally reacting to light. EOMI. No scleral icterus. No conjunctival pallor. Normocephalic, atraumatic. No pharyngeal erythema. No thyromegaly. CARDIOVASCULAR: S1 and S2 present. No murmurs, rubs, or gallops. PULMONARY: Minimal Expiratory wheezing, diminished lung sounds all lung moss ABDOMEN: Soft, nontender, nondistended, normoactive bowel sounds. No palpable organomegaly. MUSCULOSKELETAL: No joint swelling or deformity. EXTREMITIES: No cyanosis, clubbing, or pedal edema. NEUROLOGICAL: Gross neurological examination did not reveal any focal deficits. SKIN: No rashes. Assessment: -Acute Hypoxic respiratory failure secondary to Covid 19 pneumonia, Started on remdesivir -COPD with acute exacerbation secondary to above -Lymphoma with recent chemotherapy in Nov -Mild hypovolemic hyponatremia, improved -Nicotine use history: Counseling was provided -DVT prophylaxis:Lovenox -GI: prophylaxis: Pepcid -Full code Plan: Continue oxygen support, titrate as needed as she currently maintained on 6 L and encouraged incentive spirometer and increased activity as tolerated Continue with Remdesivir, Zinc, Lovenox, decadron, vitamins Continue to encourage oral intake Repeat labs and inflammatory markers in the AM, inflammatory markers trending down Chest x-ray in the AM Prognosis remains guarded for this patient Objective - Vital Signs Vital signs: Vital Signs Temp 97.6 F 09/25/21 06:00 Pulse 61 09/25/21 09:00 Resp 18 09/25/21 09:00 BP 123/76 09/25/21 06:00 Pulse Ox 97 09/25/21 06:00 Intake & Output 09/24/21 09/25/21 09/25/21 18:59 06:59 18:59 Intake Total 190 Balance 190 Weight 69.4 kg Intake: Intake, IV Titration 40 Amount Sodium Chloride 0.9% 1, 40 000 ml @ 20 mls/hr IV . Q24H [facility] Rx#:[id number] Oral 150 Other: # Voids 1 - Labs CBC & Chem 7: 09/25/21 06:05 09/25/21 06:05 Labs: Abnormal Lab Results - Last 24 Hours (Table) 09/24/21 09/24/21 Range/Units 05:48 05:48 WBC 1.50 L (4.50-10.00) X 10*3/uL Carbon Dioxide 15.0 L (20.0-27.5) mmol/L Anion Gap 19.00 H (10.00-18.00) mmol/L Creatinine 0.5 L (0.6-1.5) mg/dL BUN/Creatinine Ratio 25.20 H (12.00-20.00) Ratio Glucose 138 H (70-110) mg/dL
[2021-09-25] MEDS: SODIUM CHLORIDE 0.9% 1,000 ML IV SCH (21:15)
[2021-09-26] MEDS: dexAMETHasone 2 MG TAB PO SCH (07:49)
[2021-09-26] MEDS: FAMOTIDINE 20 MG TAB PO SCH (07:49)
[2021-09-26] MEDS: ENOXAPARIN 40 MG/0.4 ML SYRINGE SQ SCH (07:49)
[2021-09-26] MEDS: ZINC SULFATE 220 MG CAP PO SCH (07:49)
[2021-09-26] MEDS: ASCORBIC ACID 500 MG TAB PO SCH ×2 (07:49→20:17)
[2021-09-26] MEDS: SYMBICORT 160-4.5 MCG INHALER INHALATION SCH ×2 (09:07→20:51)
[2021-09-26] MEDS: TIOTROPIUM 2.5 MCG INHALER INHALATION SCH (09:08)
[2021-09-26] MEDS: REMDESIVIR 100 MG in SODIUM CHLORIDE 0.9% 250 ML IVPB SCH (11:43)
[2021-09-26 12:20] LABS: Basophils # (A) 0.06 X 10*3/uL (0.00-0.10); Basophils % (A) 2.6 %; Eosinophils # (A) 0 X 10*3/uL (0.04-0.35); Eosinophils % (A) 0 %; HCT 47.5 % (37.2-46.3); HGB 13.4 g/dL (12.0-15.0); Lymphocytes # (A) 0.35 X 10*3/uL (0.90-5.00); Lymphocytes % (A) 15.1 %; MCHC 28.2 g/dL (32.0-37.0); MCV 106.3 fL (80.0-97.0); Mean Platelet Volume 11.9 fL (9.5-12.2); Monocytes # (A) 0.41 X 10*3/uL (0.20-1.00); Monocytes % (A) 17.7 %; Neutrophils # (A) 1.49 X 10*3/uL (1.80-7.70); Neutrophils % (A) 64.2 %; Platelet Count 153 X 10*3/uL (140-440); RBC 4.47 X 10*6/uL (4.10-5.20); RDW 14.6 % (11.5-14.5); WBC 2.32 X 10*3/uL (4.50-10.00)
--- NOTE | 2021-09-26 14:46 | P.PN ---
Subjective Progress Note Date: 09/26/21 This is a 66-year-old female patient with a known history of chronic obstructive pulmonary disease and maintained on Breo and Spiriva in the outpatient setting, chronic tobacco dependence, lymphoma and received her last round of R CHOP on 08/26/[address] Kimbrough out of [place]. He presented here to the emergency room yesterday with increasing shortness of breath, poor appetite, generalized weakness and fatigue. She tested positive for COVID-19. She did receive the vaccination in March but no booster. DT angiogram ruled out pulmonary embolism. There is moderate emphysema and fibrotic changes, no significant groundglass opacities. Count 1.5. Hemoglobin 13.2. Leukocytes 0.4. D-dimer 0.86. Sodium 135. Potassium 3.6. Creatinine 0.46. AST 56. ALT 22. ProBNP 245. She's been initiated on Decadron, Lovenox, vitamin supplements. Continued on rhonchi dilators. She is seen today in consultation in the emergency department. She is currently sitting up on the stretcher. A wake and alert in no acute distress. Some dyspnea with minimal activity and conversation. She is requiring 6 L high flow nasal cannula to maintain O2 saturation in the 90s. On 2020 patient seen in follow-up on medical surgical floor, she is currently on 6 L of oxygen, her pulse ox is 92 to 97%. She is awake and alert, she states she is not coughing much today, improved since yesterday, she reports some nasal drainage, at times clear at times it does have some color, she is mildly dyspneic with conversation, however her lung sounds are clear, without crackles, wheezes or rhonchi. Patient does have a history of COPD, severity which is not known to us at this time, she states she never had a PFT, however she does not wear oxygen on a regular basis, she is maintained on Breo and Sp iriva on an outpatient basis. Denies any chest discomfort, she remains on Decadron, she remains on prophylactic Lovenox, CTA chest was negative for acute pulmonary embolism, there were moderate emphysematous changes and moderate anterior lower lung fibrotic changes which was new. Patient was started on Remdesivir yesterday on 09/24/2021, today is day 2 of treatment. Her labs have been reviewed, d-dimer is improved and is down to 0.50, pro calcitonin level was negative, inflammatory markers are pending for today. On 09/26/2021 patient is seen in follow-up on medical surgical floor. She is awake and alert in no acute distress, breathing better, she is currently on 5 L of oxygen pulse ox is 90%. She is less tachypneic. She is afebrile, vital signs have been stable, has a mild cough, and exertional dyspnea, but no acute distress. She is on Remdesivir day 3, she is on prophylactic Lovenox, she is on inhaled bronchodilators, and Decadron Objective - Vital Signs Vital signs: Vital Signs Temp 97.6 F 09/26/21 09:40 Pulse 67 09/26/21 09:40 Resp 17 09/26/21 09:40 BP 134/79 09/26/21 09:40 Pulse Ox 91 L 09/26/21 09:40 Intake & Output 09/25/21 09/26/21 09/26/21 18:59 06:59 18:59 Intake Total 250 610 Balance 250 610 Weight 69.4 kg Intake: Intake, IV Titration 250 490 Amount Remdesivir 100 mg In 250 250 Sodium Chloride 0.9% 250 ml @ 250 mls/hr IVPB DAILY@1100 [facility] Rx#: [id number] Sodium Chloride 0.9% 1, 240 000 ml @ 20 mls/hr IV . Q24H [facility] Rx#:[id number] Oral 120 Other: Voiding Method Bedside Commode Bedside Commode # Voids 2 2 # Bowel Movements 1 - Exam GENERAL EXAM: Alert, very pleasant, 66-year-old white female, on 5 L of oxygen the pulse ox between 91% mildly dyspneic with conversation, but no acute distress HEAD: Normocephalic/atraumatic. EYES: Normal reaction of pupils, equal size. Conjunctiva pink, sclera white. NOSE: Clear with pink turbinates. THROAT: No erythema or exudates. NECK: No masses, no JVD, no thyroid enlargement, no adenopathy. CHEST: No chest wall deformity. Symmetrical expansion. LUNGS: Equal air entry with no crackles, wheeze, rhonchi or dullness. CVS: Regular rate and rhythm, normal S1 and S2, no gallops, no murmurs, no rubs ABDOMEN: Soft, nontender. No hepatosplenomegaly, normal bowel sounds, no guarding or rigidity. EXTREMITIES: No clubbing, no edema, no cyanosis, 2+ pulses and upper and lower extremities. MUSCULOSKELETAL: Muscle strength and tone normal. SPINE: No scoliosis or deformity SKIN: No rashes CENTRAL NERVOUS SYSTEM: Alert and oriented -3. No focal deficits, tone is norm al in all 4 extremities. PSYCHIATRIC: Alert and oriented -3. Appropriate affect. Intact judgment and insight. - Labs CBC & Chem 7: 09/26/21 06:15 09/25/21 06:05 Labs: Abnormal Lab Results - Last 24 Hours (Table) 09/26/21 Range/Units 06:15 WBC 2.32 L (4.50-10.00) X 10*3/uL Hct 47.5 H (37.2-46.3) % MCV 106.3 H (80.0-97.0) fL MCHC 28.2 L (32.0-37.0) g/dL RDW 14.6 H (11.5-14.5) % Neutrophils # 1.49 L (1.80-7.70) X 10*3/uL Lymphocytes # 0.35 L (0.90-5.00) X 10*3/uL Eosinophils # 0 L (0.04-0.35) X 10*3/uL Assessment and Plan Plan: Assessment: #1. Acute hypoxic respiratory failure related to acute COVID-19 infection. Patient is status post completed vaccination in February 2021, has not received a booster yet. Initiated on Remdesivir on 09/24/2021 #2. Non-Hodgkin's B-cell lymphoma, patient has completed our CHOP therapy on at [facility], follows with Dr. Kimbrough #3. Acute exacerbation of COPD, improving #4. Nicotine dependence, carries over [id number] smoking history #5. History of COPD, not oxygen dependent at baseline, maintained on Breo Ellipta and Spiriva on an outpatient basis #6. Cataract surgery bilateral #7. Pulmonary fibrotic changes in the left lung, as seen on the CTA chest #8. History of diverticulosis Plan: Continue Remdesivir, today is day 3 of treatment Continue current dose Decadron Continue Symbicort, Spiriva, Patient appears to be breathing better today She is on 5 L of oxygen Continue current dose Lovenox Obtain follow-up d-dimer and inflammatory markers Continue current medical treatment We'll continue to follow her closely I performed a history & physical examination of the patient and discussed their management with my nurse practitioner, Brenda Figueroa. I reviewed the nurse practitioner's note and agree with the documented findings and plan of care. Lung sounds are positive for diffuse wheezes throughout the lung moss. The findings and the impression was discussed with the patient. I attest to the documentation by the nurse practitioner. Time with Patient: Less than 30
[2021-09-26] MEDS: SODIUM CHLORIDE 0.9% 1,000 ML IV SCH (15:54)
--- NOTE | 2021-09-26 16:01 | P.PN ---
Subjective Progress Note Date: 09/26/21 66-year-old female presents with shortness of breath nausea generalized weakness denied any fever patient recently completed chemotherapy in early August for lymphoma. Patient denied dysuria nausea vomiting patient is found to have Covid 19. Patient had a CT angios the chest which did not show any significant infiltrate but did show some fibrotic changes and emphysematous changes no pulmonary embolus him on the CT although patient is requiring 5 L of oxygen at this time. Pulmonary was consulted patient doesn't have any wheezing on exam patient does smoke. 09/24/2021 Patient evaluated in the EC while pending bed on the medical floor. She denies any cough, does report some shortness of breath at rest. She is now on 6L Nasal cannula with an oxygen saturation of 92%. She denies any chest pain today. Denies nausea vomiting, reports diarrhea today. Blood pressures on the lower side 92/60 while in the room, patient states this is low for her she usually runs in the 130's to 140's. Heart rate is 85. Labs today show a WBC count of 1.50, hemoglobin of 13.2, D-Dimer yesterday 0.86, sodium 141, potassium 4.6, B 12, Creatinine 0.5. Glucose 138. Repeat labs and inflammatory markers will be repeated tomorrow. She is being followed closely by pulmonary services. Patient follows with oncology at [place]. No other complaints today. She is on Vitamin C, Decadron, lovenox, zinc, and was started on Remdesivir. Additionally, she continues to smoke about 1/2 pack per day, history of COPD on symbicort. Prognosis is guarded, monitor respiratory status closely. 09/25/2021 Patient is seen and evaluated in follow-up continues on 6 L of oxygen via nasal cannula maintaining oxygen saturation of 90%. Patient has had 97% on 6 L via nasal cannula this morning and denies any worsening shortness of breath. Pulmonary is following and discussed with the patient about attempting to maintain 5 L of oxygen with oxygen saturations above 90% and will consider discharging home if cleared by pulmonary. Patient is continued on Remdesivir date 2 along with dexamethasone and inhalers along with Lovenox and will continue. Patient is extremely anxious to go home and states she feels she would be better at home although still requiring 6 L of oxygen. Case management following and arrangements for home oxygen are being planned. 09/26/2021 She is seen in follow-up this morning continues to be on 5 L of oxygen with oxygen saturation of 94% and pulmonary is following closely. Continues to be dyspneic with exertion and slightly more anxious and tearful today as she just heard her is positive for Covid at home. Patient states he is doing well not requiring any oxygen. Patient continues on oral dexamethasone along with vitamin and zinc supplements and has been continued on Lovenox and is currently undergoing Remdesivir day 3 of 5. Discussed with the patient about increasing activity is tolerating and continuing to use incentive spirometer at least 10 times every hour while awake. Labs: White blood, 2.32, hemoglobin is 13.4, platelets are 153, d-dimer is negative at 0.56. ROS Constitutional: Denies fever, chills, reports fatigue, anxious about wanting to go home Cardio vascular: denied any chest pain, palpitations Gastrointestinal denied any nausea vomiting, reports diarrhea, denies blood in the stool Pulmonary: Denied any cough, reports shortness of breath with exertion, reports no worsening Neurologic denied any new focal deficits All inpatient medications were reviewed and appropriate changes in these medications as dictated in the interval history and assessment and plan. Active Medications Acetaminophen (Acetaminophen Tab 325 Mg Tab) 650 mg PO Q6HR PRN PRN Reason: Mild Pain or Fever > 100.5 Ascorbic Acid (Ascorbic Acid 500 Mg Tab) 500 mg PO BID [facility]S [facility]CLUDE 234 BEDS AT THE [facility] Last Admin: 09/25/21 08:55 Dose: 500 mg Documented by: Budesonide/Formoterol Fumarate (Symbicort 160-4.5 Mcg Inhaler) 2 puff INHALATION RT-BID [facility]CLUDE 234 BEDS AT THE [facility] Last Admin: 09/25/21 09:38 Dose: 2 puff Documented by: Dexamethasone (Dexamethasone 2 Mg Tab) 6 mg PO DAILY [facility]S [facility]CLUDE 234 BEDS AT THE [facility] Last Admin: 09/25/21 08:55 Dose: 6 mg Documented by: Enoxaparin Sodium (Enoxaparin 40 Mg/0.4 Ml Syringe) 40 mg SQ DAILY [facility]CLUDE 234 BEDS AT [facility] Last Admin: 09/25/21 08:55 Dose: 40 mg Documented by: Famotidine (Famotidine 20 Mg Tab) 20 mg PO DAILY [facility]CLUDE 234 BEDS AT THE [facility] Last Admin: 09/25/21 08:55 Dose: 20 mg Documented by: Sodium Chloride (Saline 0.9%) 1,000 mls @ 20 mls/hr IV .Q24H [facility]S [facility]CLUDE 234 BEDS AT THE [facility] Last Admin: 09/24/21 20:10 Dose: 20 mls/hr Documented by: Remdesivir 100 mg/ Sodium (Chloride) 250 mls @ 250 mls/hr IVPB DAILY@1100 [facility]S [facility]CLUDE 234 BEDS AT THE [facility] Stop: 09/28/21 11:59 Last Admin: 09/25/21 10:22 Dose: 250 mls/hr Documented by: Naloxone HCl (Naloxone 0.4 Mg/Ml 1 Ml Vial) 0.2 mg IV Q2M PRN PRN Reason: Opioid Reversal Tiotropium [place] (Tiotropium 2.5 Mcg Inhaler) 2 puff INHALATION RT-DAILY [facility]S INCLUDE 234 BEDS AT THE [facility] Last Admin: 09/25/21 09:38 Dose: 2 puff Documented by: Zinc Sulfate (Zinc Sulfate 220 Mg Cap) 220 mg PO DAILY [facility]S INCLUDE 234 BEDS AT THE [facility] Last Admin: 09/25/21 08:55 Dose: 220 mg Documented by: PHYSICAL EXAMINATION: GENERAL: The patient is alert and oriented x3, not in any acute distress. Well developed, well nourished. on Nasal cannula 5 liters HEENT: Pupils are round and equally reacting to light. EOMI. No scleral icterus. No conjunctival pallor. Normocephalic, atraumatic. No pharyngeal erythema. No thyromegaly. CARDIOVASCULAR: S1 and S2 present. No murmurs, rubs, or gallops. PULMONARY: Minimal Expiratory wheezing, diminished lung sounds all lung moss ABDOMEN: Soft, nontender, nondistended, normoactive bowel sounds. No palpable organomegaly. MUSCULOSKELETAL: No joint swelling or deformity. EXTREMITIES: No cyanosis, clubbing, or pedal edema. NEUROLOGICAL: Gross neurological examination did not reveal any focal deficits. SKIN: No rashes. Assessment: -Acute Hypoxic respiratory failure secondary to Covid 19 pneumonia, Started on remdesivir -COPD with acute exacerbation secondary to above -Lymphoma with recent chemotherapy in Nov -Mild hypovolemic hyponatremia, improved -Nicotine use history: Counseling was provided -Anxiety -DVT prophylaxis:Lovenox -GI: prophylaxis: Pepcid -Full code Plan: Continue oxygen support, titrate as needed as she currently maintained on 5 L and encouraged incentive spirometer and increased activity as tolerated Continue with Remdesivir day 3 of 5, Zinc, Lovenox, decadron, vitamins Continue to encourage oral intake Repeat labs and inflammatory markers in the AM, inflammatory markers trending down Patient experiencing some anxiety and will add low-dose Xanax as patient recently discovered that her was positive for Covid as well at home Chest x-ray in the AM Prognosis remains guarded for this patient Objective - Vital Signs Vital signs: Vital Signs Temp 97.5 F L 09/26/21 06:00 Pulse 79 09/26/21 06:00 Resp 19 09/26/21 06:00 BP 136/83 09/26/21 06:00 Pulse Ox 90 L 09/26/21 06:00 Intake & Output 09/25/21 09/26/21 09/26/21 18:59 06:59 18:59 Intake Total 250 610 Balance 250 610 Weight 69.4 kg Intake: Intake, IV Titration 250 490 Amount Remdesivir 100 mg In 250 250 Sodium Chloride 0.9% 250 ml @ 250 mls/hr IVPB DAILY@1100 COUNTS INCLUDE 234 BEDS AT THE [facility] Rx#: [id number] Sodium Chloride 0.9% 1, 240 000 ml @ 20 mls/hr IV . Q24H [facility] Rx#:[id number] Oral 120 Other: Voiding Method Bedside Commode # Voids 2 2 # Bowel Movements 1 - Labs CBC & Chem 7: 09/26/21 06:15 09/25/21 06:05 Labs: Abnormal Lab Results - Last 24 Hours (Table) 09/25/21 09/25/21 Range/Units 06:05 06:05 WBC 3.42 L (4.50-10.00) X 10*3/uL Lymphocytes # 0.34 L (0.90-5.00) X 10*3/uL Eosinophils # 0 L (0.04-0.35) X 10*3/uL Creatinine 0.5 L (0.6-1.5) mg/dL BUN/Creatinine Ratio 42.97 H (12.00-20.00) Ratio Total Bilirubin <0.20 L (0.30-1.20) mg/dL AST 39 H (13-35) U/L Lactate Dehydrogenase 288 H (120-246) U/L Total Protein 5.0 L (6.2-8.2) g/dL Albumin 3.3 L (3.8-4.9) g/dL
[2021-09-26] MEDS: ALPRAZolam 0.25 MG TAB PO PRN (20:17)
[2021-09-27] MEDS: ASCORBIC ACID 500 MG TAB PO SCH ×2 (07:33→21:42)
[2021-09-27] MEDS: ZINC SULFATE 220 MG CAP PO SCH (07:33)
[2021-09-27] MEDS: FAMOTIDINE 20 MG TAB PO SCH (07:34)
[2021-09-27] MEDS: dexAMETHasone 2 MG TAB PO SCH (07:34)
[2021-09-27] MEDS: ENOXAPARIN 40 MG/0.4 ML SYRINGE SQ SCH (07:34)
[2021-09-27 07:40] LABS: African American GFR (CKD) >90 (>60 ml/min/1.73 sqM); Anion Gap 8 mmol/L; Blood Urea Nitrogen 16 mg/dL (7-17); Calcium 8.9 mg/dL (8.4-10.2); Carbon Dioxide 18 mmol/L (22-30); Chloride 114 mmol/L (98-107); Glucose 93 mg/dL (74-99); Non-African American GFR(CKD) >90 (>60 ml/min/1.73 sqM); Potassium 4.6 mmol/L (3.5-5.1); Sodium 140 mmol/L (137-145)
[2021-09-27 08:18] LABS: C Reactive Protein 0.8 mg/dL (<1.0)
[2021-09-27] MEDS: SYMBICORT 160-4.5 MCG INHALER INHALATION SCH ×2 (09:00→21:28)
[2021-09-27] MEDS: TIOTROPIUM 2.5 MCG INHALER INHALATION SCH (09:00)
--- NOTE | 2021-09-27 09:58 | P.PN ---
Subjective Progress Note Date: 09/27/21 This is a 66-year-old female patient with a known history of chronic obstructive pulmonary disease and maintained on Breo and Spiriva in the outpatient setting, chronic tobacco dependence, lymphoma and received her last round of R CHOP on 08/26/[address] Kimbrough out of [place]. He presented here to the emergency room yesterday with increasing shortness of breath, poor appetite, generalized weakness and fatigue. She tested positive for COVID-19. She did receive the vaccination in March but no booster. DT angiogram ruled out pulmonary embolism. There is moderate emphysema and fibrotic changes, no significant groundglass opacities. Count 1.5. Hemoglobin 13.2. Leukocytes 0.4. D-dimer 0.86. Sodium 135. Potassium 3.6. Creatinine 0.46. AST 56. ALT 22. ProBNP 245. She's been initiated on Decadron, Lovenox, vitamin supplements. Continued on rhonchi dilators. She is seen today in consultation in the emergency department. She is currently sitting up on the stretcher. A wake and alert in no acute distress. Some dyspnea with minimal activity and conversation. She is requiring 6 L high flow nasal cannula to maintain O2 saturation in the 90s. On 2020 patient seen in follow-up on medical surgical floor, she is currently on 6 L of oxygen, her pulse ox is 92 to 97%. She is awake and alert, she states she is not coughing much today, improved since yesterday, she reports some nasal drainage, at times clear at times it does have some color, she is mildly dyspneic with conversation, however her lung sounds are clear, without crackles, wheezes or rhonchi. Patient does have a history of COPD, severity which is not known to us at this time, she states she never had a PFT, however she does not wear oxygen on a regular basis, she is maintained on Breo and Sp iriva on an outpatient basis. Denies any chest discomfort, she remains on Decadron, she remains on prophylactic Lovenox, CTA chest was negative for acute pulmonary embolism, there were moderate emphysematous changes and moderate anterior lower lung fibrotic changes which was new. Patient was started on Remdesivir yesterday on 09/24/2021, today is day 2 of treatment. Her labs have been reviewed, d-dimer is improved and is down to 0.50, pro calcitonin level was negative, inflammatory markers are pending for today. On 09/26/2021 patient is seen in follow-up on medical surgical floor. She is awake and alert in no acute distress, breathing better, she is currently on 5 L of oxygen pulse ox is 90%. She is less tachypneic. She is afebrile, vital signs have been stable, has a mild cough, and exertional dyspnea, but no acute distress. She is on Remdesivir day 3, she is on prophylactic Lovenox, she is on inhaled bronchodilators, and Decadron On 09/27/2021 patient seen in follow-up on medical surgical floor, she is currently on 4 L of oxygen her pulse ox is 90%, breathing more comfortably, afebrile, hemodynamically she has been stable, she feels better since admission as well. She has had no acute events overnight. Continues is on Remdesivir treatment and today is day 4 of treatment, in addition to Decadron and prophylactic Lovenox. Said no acute events overnight, she is tolerating oral intake, no nausea vomiting or diarrhea. Today's labs have been reviewed, CBC results are still pending for today, her last d-dimer from yesterday was within normal limits at 0.56, sodium is 140, potassium is 4.6, chloride is 114, CO2 is 18, V1 is 16, creatinine 0.42, LDH and CRP are still pending today, yesterday's levels were not significantly elevated and LDH was 288, and CRP was within normal limits at 0.80, pro calcitonin level was negative at 0.07. Objective - Vital Signs Vital signs: Vital Signs Temp 97.8 F 09/27/21 06:00 Pulse 55 L 09/27/21 06:00 Resp 17 09/27/21 07:45 BP 146/76 09/27/21 06:00 Pulse Ox 90 L 09/27/21 09:38 Intake & Output 09/26/21 09/27/21 09/27/21 18:59 06:59 18:59 Intake Total 610 Balance 610 Intake: Intake, IV Titration 450 Amount Remdesivir 100 mg In 250 Sodium Chloride 0.9% 250 ml @ 250 mls/hr IVPB DAILY@1100 [facility] Rx#: [id number] Sodium Chloride 0.9% 1, 200 000 ml @ 20 mls/hr IV . Q24H [facility] Rx#:[id number] Oral 160 Other: Voiding Method Bedside Commode Bedside Commode Bedside Commode # Voids 3 2 - Exam GENERAL EXAM: Alert, very pleasant, 66-year-old white female, on 4 L of oxygen the pulse ox between 91% mildly dyspneic with conversation, but no acute distress HEAD: Normocephalic/atraumatic. EYES: Normal reaction of pupils, equal size. Conjunctiva pink, sclera white. NOSE: Clear with pink turbinates. THROAT: No erythema or exudates. NECK: No masses, no JVD, no thyroid enlargement, no adenopathy. CHEST: No chest wall deformity. Symmetrical expansion. LUNGS: Equal air entry with no crackles, wheeze, rhonchi or dullness. CVS: Regular rate and rhythm, normal S1 and S2, no gallops, no murmurs, no rubs ABDOMEN: Soft, nontender. No hepatosplenomegaly, normal bowel sounds, no guarding or rigidity. EXTREMITIES: No clubbing, no edema, no cyanosis, 2+ pulses and upper and lower extremities. MUSCULOSKELETAL: Muscle strength and tone normal. SPINE: No scoliosis or deformity SKIN: No rashes CENTRAL NERVOUS SYSTEM: Alert and oriented -3. No focal deficits, tone is normal in all 4 extremities. PSYCHIATRIC: Alert and oriented -3. Appropriate affect. Intact judgment and insight. - Labs CBC & Chem 7: 09/26/21 06:15 09/27/21 06:40 Labs: Abnormal Lab Results - Last 24 Hours (Table) 09/26/21 09/27/21 Range/Units 06:15 06:40 WBC 2.32 L (4.50-10.00) X 10*3/uL Hct 47.5 H (37.2-46.3) % MCV 106.3 H (80.0-97.0) fL MCHC 28.2 L (32.0-37.0) g/dL RDW 14.6 H (11.5-14.5) % Neutrophils # 1.49 L (1.80-7.70) X 10*3/uL Lymphocytes # 0.35 L (0.90-5.00) X 10*3/uL Eosinophils # 0 L (0.04-0.35) X 10*3/uL Chloride 114 H (98-107) mmol/L Carbon Dioxide 18 L (22-30) mmol/L Creatinine 0.42 L (0.52-1.04) mg/dL Assessment and Plan Plan: Assessment: #1. Acute hypoxic respiratory failure related to acute COVID-19 infection. Patient is status post completed vaccination in February 2021, has not received a booster yet. Initiated on Remdesivir on 09/24/2021 #2. Non-Hodgkin's B-cell lymphoma, patient has completed our CHOP therapy on 08/27/2021 at [facility], follows with Dr. Kimbrough #3. Acute exacerbation of COPD, improving #4. Nicotine dependence, carries over [id number] smoking history #5. History of COPD, not oxygen dependent at baseline, maintained on Breo Ellipta and Spiriva on an outpatient basis #6. Cataract surgery bilateral #7. Pulmonary fibrotic changes in the left lung, as seen on the CTA chest #8. History of diverticulosis Plan: Clinically patient has remained stable, breathing is improving, currently down to 4 L of oxygen Continue Remdesivir, today is day 4 of treatment Continue current dose Decadron Continue Symbicort, Spiriva, Continue current dose Lovenox Inflammatory markers from yesterday were not significantly elevated, d-dimer was negative Clinical patient is improving, we'll consider discharge in the next 24 hours if continues to improve and require less than 5 L of supplemental oxygen. We'll continue to follow her closely I performed a history & physical examination of the patient and discussed their management with my nurse practitioner, Brenda Figueroa. I reviewed the nurse practitioner's note and agree with the documented findings and plan of care. Lung sounds are positive for diffuse wheezes throughout the lung moss. The findings and the impression was discussed with the patient. I attest to the documentation by the nurse practitioner. Time with Patient: Less than 30
[2021-09-27] MEDS: REMDESIVIR 100 MG in SODIUM CHLORIDE 0.9% 250 ML IVPB SCH (11:15)
--- NOTE | 2021-09-27 12:33 | P.PN ---
Subjective Progress Note Date: 09/27/21 66-year-old female presents with shortness of breath nausea generalized weakness denied any fever patient recently completed chemotherapy in early August for lymphoma. Patient denied dysuria nausea vomiting patient is found to have Covid 19. Patient had a CT angios the chest which did not show any significant infiltrate but did show some fibrotic changes and emphysematous changes no pulmonary embolus him on the CT although patient is requiring 5 L of oxygen at this time. Pulmonary was consulted patient doesn't have any wheezing on exam patient does smoke. 09/24/2021 Patient evaluated in the EC while pending bed on the medical floor. She denies any cough, does report some shortness of breath at rest. She is now on 6L Nasal cannula with an oxygen saturation of 92%. She denies any chest pain today. Denies nausea vomiting, reports diarrhea today. Blood pressures on the lower side 92/60 while in the room, patient states this is low for her she usually runs in the 130's to 140's. Heart rate is 85. Labs today show a WBC count of 1.50, hemoglobin of 13.2, D-Dimer yesterday 0.86, sodium 141, potassium 4.6, B 12, Creatinine 0.5. Glucose 138. Repeat labs and inflammatory markers will be repeated tomorrow. She is being followed closely by pulmonary services. Patient follows with oncology at [place]. No other complaints today. She is on Vitamin C, Decadron, lovenox, zinc, and was started on Remdesivir. Additionally, she continues to smoke about 1/2 pack per day, history of COPD on symbicort. Prognosis is guarded, monitor respiratory status closely. 09/25/2021 Patient is seen and evaluated in follow-up continues on 6 L of oxygen via nasal cannula maintaining oxygen saturation of 90%. Patient has had 97% on 6 L via nasal cannula this morning and denies any worsening shortness of breath. Pulmonary is following and discussed with the patient about attempting to maintain 5 L of oxygen with oxygen saturations above 90% and will consider discharging home if cleared by pulmonary. Patient is continued on Remdesivir date 2 along with dexamethasone and inhalers along with Lovenox and will continue. Patient is extremely anxious to go home and states she feels she would be better at home although still requiring 6 L of oxygen. Case management following and arrangements for home oxygen are being planned. 09/26/2021 She is seen in follow-up this morning continues to be on 5 L of oxygen with oxygen saturation of 94% and pulmonary is following closely. Continues to be dyspneic with exertion and slightly more anxious and tearful today as she just heard her is positive for Covid at home. Patient states he is doing well not requiring any oxygen. Patient continues on oral dexamethasone along with vitamin and zinc supplements and has been continued on Lovenox and is currently undergoing Remdesivir day 3 of 5. Discussed with the patient about increasing activity is tolerating and continuing to use incentive spirometer at least 10 times every hour while awake. 09/27/2021 Patient is seen this morning and currently weaning FiO2 as tolerated. Patient is now currently maintaining oxygen saturations above 90% on 4 L via nasal cannula. Prescription was provided to case management to arrange for possible oxygen on discharge. Patient continues to be followed closely by pulmonary and remains on Remdesivir along with vitamin and zinc, oral dexamethasone, and Lovenox injections. Patient denies any worsening shortness of breath and states she is feeling better. Patient is tolerating diet with no reports of nausea or vomiting noted. Patient is afebrile. Will repeat a.m. chest x-ray along with labs and inflammatory markers. Encouraged incentive spirometer at least 10 times every hour while awake. Labs: Sodium is 140, potassium is 4.6, creatinine is 0.4 to, calcium is 8.9, CRP is 0.8. ROS Constitutional: Denies fever, chills, anxious about wanting to go home slightly improved Cardiovascular: denied any chest pain, palpitations Gastrointestinal denied any nausea vomiting, reports diarrhea, improved Pulmonary: Denied any cough, reports shortness of breath with exertion, reports no worsening Neurologic denied any new focal deficits All inpatient medications were reviewed and appropriate changes in these medications as dictated in the interval history and assessment and plan. Active Medications Acetaminophen (Acetaminophen Tab 325 Mg Tab) 650 mg PO Q6HR PRN PRN Reason: Mild Pain or Fever > 100.5 Alprazolam (Alprazolam 0.25 Mg Tab) 0.25 mg PO TID PRN PRN Reason: Anxiety Last Admin: 09/26/21 20:17 Dose: 0.25 mg Documented by: Ascorbic Acid (Ascorbic Acid 500 Mg Tab) 500 mg PO BID [facility] Last Admin: 09/27/21 07:33 Dose: 500 mg Documented by: Budesonide/Formoterol Fumarate (Symbicort 160-4.5 Mcg Inhaler) 2 puff INHALATION RT-BID [facility] Last Admin: 09/27/21 09:00 Dose: 2 puff Documented by: Dexamethasone (Dexamethasone 2 Mg Tab) 6 mg PO DAILY [facility] Last Admin: 09/27/21 07:34 Dose: 6 mg Documented by: Enoxaparin Sodium (Enoxaparin 40 Mg/0.4 Ml Syringe) 40 mg SQ DAILY [facility] Last Admin: 09/27/21 07:34 Dose: 40 mg Documented by: Famotidine (Famotidine 20 Mg Tab) 20 mg PO DAILY [facility] Last Admin: 09/27/21 07:34 Dose: 20 mg Documented by: Sodium Chloride (Saline 0.9%) 1,000 mls @ 20 mls/hr IV .Q24H [facility] Last Admin: 09/26/21 15:54 Dose: 20 mls/hr Documented by: Remdesivir 100 mg/ Sodium (Chloride) 250 mls @ 250 mls/hr IVPB DAILY@1100 [facility] Stop: 09/28/21 11:59 Last Admin: 09/27/21 11:15 Dose: 250 mls/hr Documented by: Naloxone HCl (Naloxone 0.4 Mg/Ml 1 Ml Vial) 0.2 mg IV Q2M PRN PRN Reason: Opioid Reversal Tiotropium Stollings (Tiotropium 2.5 Mcg Inhaler) 2 puff INHALATION RT-DAILY [facility] Last Admin: 09/27/21 09:00 Dose: 2 puff Documented by: Zinc Sulfate (Zinc Sulfate 220 Mg Cap) 220 mg PO DAILY [facility] Last Admin: 09/27/21 07:33 Dose: 220 mg Documented by: PHYSICAL EXAMINATION: GENERAL: The patient is alert and oriented x3, not in any acute distress. Well developed, well nourished. on Nasal cannula 4 liters HEENT: Pupils are round and equally reacting to light. EOMI. No scleral icterus. No conjunctival pallor. Normocephalic, atraumatic. No pharyngeal erythema. No thyromegaly. CARDIOVASCULAR: S1 and S2 present. No murmurs, rubs, or gallops. PULMONARY: diminished lung sounds all lung moss no wheezing or rhonchi noted ABDOMEN: Soft, nontender, nondistended, normoactive bowel sounds. No palpable organomegaly. MUSCULOSKELETAL: No joint swelling or deformity. EXTREMITIES: No cyanosis, clubbing, or pedal edema. NEUROLOGICAL: Gross neurological examination did not reveal any focal deficits. SKIN: No rashes. Assessment: -Acute Hypoxic respiratory failure secondary to Covid 19 pneumonia, maintained on remdesivir -COPD with acute exacerbation secondary to above -Lymphoma with recent chemotherapy in Nov -Mild hypovolemic hyponatremia, improved -Nicotine use history: Counseling was provided -Anxiety -DVT prophylaxis:Lovenox -GI: prophylaxis: Pepcid -Full code Plan: Continue oxygen support, titrate as needed as she currently maintained on 4 L and encouraged incentive spirometer and increased activity as tolerated, prescription provided for home O2 oxygen to case management as patient will likely require 4 L of oxygen via nasal cannula secondary to Covid 19 Continue with Remdesivir day 4 of 5, Zinc, Lovenox, decadron, vitamins Continue to encourage oral intake Repeat labs and inflammatory markers in the AM, inflammatory markers trending down Patient experiencing some anxiety and continue Xanax as needed Chest x-ray in the AM Prognosis remains guarded for this patient If patient continues to improve and maintain oxygen saturation above 90% on 5 L or less of nasal cannula (currently 4 L), and clearance from pulmonary may consider discharge and possible 24 hours. Objective - Vital Signs Vital signs: Vital Signs Temp 97.8 F 09/27/21 06:00 Pulse 55 L 09/27/21 06:00 Resp 17 09/27/21 06:00 BP 146/76 09/27/21 06:00 Pulse Ox 95 09/27/21 06:00 Intake & Output 09/26/21 09/27/21 09/27/21 18:59 06:59 18:59 Intake Total 610 Balance 610 Intake: Intake, IV Titration 450 Amount Remdesivir 100 mg In 250 Sodium Chloride 0.9% 250 ml @ 250 mls/hr IVPB DAILY@1100 [facility] Rx#: [id number] Sodium Chloride 0.9% 1, 200 000 ml @ 20 mls/hr IV . Q24H [facility] Rx#:[id number] Oral 160 Other: Voiding Method Bedside Commode Bedside Commode # Voids 3 2 - Labs CBC & Chem 7: 09/26/21 06:15 09/27/21 06:40 Labs: Abnormal Lab Results - Last 24 Hours (Table) 09/26/21 09/27/21 Range/Units 06:15 06:40 WBC 2.32 L (4.50-10.00) X 10*3/uL Hct 47.5 H (37.2-46.3) % MCV 106.3 H (80.0-97.0) fL MCHC 28.2 L (32.0-37.0) g/dL RDW 14.6 H (11.5-14.5) % Neutrophils # 1.49 L (1.80-7.70) X 10*3/uL Lymphocytes # 0.35 L (0.90-5.00) X 10*3/uL Eosinophils # 0 L (0.04-0.35) X 10*3/uL Chloride 114 H (98-107) mmol/L Carbon Dioxide 18 L (22-30) mmol/L Creatinine 0.42 L (0.52-1.04) mg/dL
[2021-09-27] MEDS: SODIUM CHLORIDE 0.9% 1,000 ML IV SCH (17:15)
[2021-09-27] MEDS: ALPRAZolam 0.25 MG TAB PO PRN (21:42)
[2021-09-28] MEDS: ENOXAPARIN 40 MG/0.4 ML SYRINGE SQ SCH ×2 (07:16→22:22)
[2021-09-28] MEDS: ALPRAZolam 0.25 MG TAB PO PRN ×3 (07:17→22:22)
[2021-09-28] MEDS: ASCORBIC ACID 500 MG TAB PO SCH ×2 (07:17→22:22)
[2021-09-28] MEDS: CHOLECALCIFEROL 25 MCG (1000 IU) TABLET PO SCH (07:17)
[2021-09-28] MEDS: ZINC SULFATE 220 MG CAP PO SCH (07:17)
[2021-09-28] MEDS: FAMOTIDINE 20 MG TAB PO SCH (07:17)
[2021-09-28] MEDS: dexAMETHasone 2 MG TAB PO SCH (07:17)
--- NOTE | 2021-09-28 07:37 | XR ---
EXAMINATION TYPE: XR chest 1V portable DATE OF EXAM: 09/28/2021 COMPARISON: Chest x-ray 06/25/[address] 09/23/2021 HISTORY: Shortness of breath TECHNIQUE: Single frontal view of the chest is obtained. FINDINGS: There is a port in the left pectoral region, catheter tip is overlying superior vena cava. No evident pneumothorax or pleural effusion. Interstitial changes within the lungs, probable associa mo groundglass opacity noted suspected to have progressed in the interval. No evident pneumothorax o r pleural effusion. Cardiac mediastinal silhouette is stable. Aorta is dense. Right hemidiaphragm is elevated. IMPRESSION: There is underlying emphysema. Correlate for pneumonia.
[2021-09-28] MEDS: TIOTROPIUM 2.5 MCG INHALER INHALATION SCH (08:43)
[2021-09-28] MEDS: SYMBICORT 160-4.5 MCG INHALER INHALATION SCH ×2 (08:43→21:21)
[2021-09-28] MEDS: REMDESIVIR 100 MG in SODIUM CHLORIDE 0.9% 250 ML IVPB SCH (11:26)
[2021-09-28] MEDS: guaiFENesin 600 MG TABLET.ER PO SCH ×2 (11:26→22:22)
[2021-09-28 11:39] LABS: Basophils # (A) 0.01 X 10*3/uL (0.00-0.10); Basophils % (A) 0.2 %; Eosinophils # (A) 0 X 10*3/uL (0.04-0.35); Eosinophils % (A) 0 %; HCT 44.2 % (37.2-46.3); HGB 13.5 g/dL (12.0-15.0); Lymphocytes # (A) 0.34 X 10*3/uL (0.90-5.00); MCH 29.1 pg (27.0-32.0); MCHC 30.5 g/dL (32.0-37.0); MCV 95.3 fL (80.0-97.0); Mean Platelet Volume 11.6 fL (9.5-12.2); Monocytes # (A) 0.43 X 10*3/uL (0.20-1.00); Monocytes % (A) 7.6 %; Neutrophils # (A) 4.83 X 10*3/uL (1.80-7.70); Neutrophils % (A) 85.8 %; Platelet Count 221 X 10*3/uL (140-440); RBC 4.64 X 10*6/uL (4.10-5.20); RDW 14.1 % (11.5-14.5); WBC 5.63 X 10*3/uL (4.50-10.00)
[2021-09-28 12:46] LABS: African American GFR (CKD) 117.7 (60.0-200.0); Anion Gap 14.4 mmol/L (10.00-18.00); BUN/Creat Ratio 29.6 Ratio (12.00-20.00); Blood Urea Nitrogen 14.8 mg/dL (9.0-27.0); C Reactive Protein 0.7 mg/dL (0.00-0.80); Calcium 9.1 mg/dL (8.7-10.3); Carbon Dioxide 18.8 mmol/L (20.0-27.5); Non-African American GFR(CKD) 101.6 (60.0-200.0); Potassium 3.4 mmol/L (3.5-5.5)
[2021-09-28] MEDS ORDERED: Potassium Replacement Protocol 1 EACH MISC MISCELLANE PRN (13:36)
[2021-09-28] MEDS: SODIUM CHLORIDE 0.9% 1,000 ML IV SCH (13:59)
--- NOTE | 2021-09-28 14:57 | P.PN ---
Subjective 66-year-old female presents with shortness of breath nausea generalized weakness denied any fever patient recently completed chemotherapy in early August for lymphoma. Patient denied dysuria nausea vomiting patient is found to have Covid 19. Patient had a CT angios the chest which did not show any significant infiltrate but did show some fibrotic changes and emphysematous changes no pulmonary embolus him on the CT although patient is requiring 5 L of oxygen at this time. Pulmonary was consulted patient doesn't have any wheezing on exam patient does smoke. 09/24/2021 Patient evaluated in the EC while pending bed on the medical floor. She denies any cough, does report some shortness of breath at rest. She is now on 6L Nasal cannula with an oxygen saturation of 92%. She denies any chest pain today. Denies nausea vomiting, reports diarrhea today. Blood pressures on the lower side 92/60 while in the room, patient states this is low for her she usually runs in the 130's to 140's. Heart rate is 85. Labs today show a WBC count of 1.5 0, hemoglobin of 13.2, D-Dimer yesterday 0.86, sodium 141, potassium 4.6, B 12, Creatinine 0.5. Glucose 138. Repeat labs and inflammatory markers will be repeated tomorrow. She is being followed closely by pulmonary services. Patient follows with oncology at [facility]. No other complaints today. She is on Vitamin C, Decadron, lovenox, zinc, and was started on Remdesivir. Additionally, she continues to smoke about 1/2 pack per day, history of COPD on symbicort. Prognosis is guarded, monitor respiratory status closely. 09/25/2021 Patient is seen and evaluated in follow-up continues on 6 L of oxygen via nasal cannula maintaining oxygen saturation of 90%. Patient has had 97% on 6 L via nasal cannula this morning and denies any worsening shortness of breath. Pulmonary is following and discussed with the patient about attempting to maintain 5 L of oxygen with oxygen saturations above 90% and will consider discharging home if cleared by pulmonary. Patient is continued on Remdesivir date 2 along with dexamethasone and inhalers along with Lovenox and will continue. Patient is extremely anxious to go home and states she feels she would be better at home although still requiring 6 L of oxygen. Case management following and arrangements for home oxygen are being planned. 09/26/2021 She is seen in follow-up this morning continues to be on 5 L of oxygen with oxygen saturation of 94% and pulmonary is following closely. Continues to be dyspneic with exertion and slightly more anxious and tearful today as she just heard her is positive for Covid at home. Patient states he is doing well not requiring any oxygen. Patient continues on oral dexamethasone along with vitamin and zinc supplements and has been continued on Lovenox and is currently undergoing Remdesivir day 3 of 5. Discussed with the patient about increasing activity is tolerating and continuing to use incentive spirometer at least 10 times every hour while awake. 09/27/2021 Patient is seen this morning and currently weaning FiO2 as tolerated. Patient is now currently maintaining oxygen saturations above 90% on 4 L via nasal cannula. Prescription was provided to case management to arrange for possible oxygen on discharge. Patient continues to be followed closely by pulmonary and remains on Remdesivir along with vitamin and zinc, oral dexamethasone, and Lovenox injections. Patient denies any worsening shortness of breath and states she is feeling better. Patient is tolerating diet with no reports of nausea or vomiting noted. Patient is afebrile. Will repeat a.m. chest x-ray along with labs and inflammatory markers. Encouraged incentive spirometer at least 10 times every hour while awake. 09/28/2021 Patient today was not feeling good, she was complaining of from more dyspnea and more coughing with difficult to bring him. Follow-up, she was asking for this next was provided. She remains on 4 L of oxygen to keep her oxygen with saturation of 90-91%. She is also complaining from central chest pain which looks pleuritic as it is sharp, central nonradiating and worsened with cough and deep breathing. Chest x-ray showing emphysema and pneumonia EKG showing normal sinus rhythm with PACs, at rate of 80/m, QTC 435, no significant ST-T changes. Troponin is pending.. Today is her last dose of remdesivir. Continue with dexamethasone and multiple vitamins, Lovenox and Pepcid Objective - Vital Signs Vital signs: Vital Signs Temp 97.6 F 09/28/21 06:04 Pulse 88 09/28/21 06:04 Resp 16 09/28/21 06:04 BP 137/82 09/28/21 06:04 Pulse Ox 90 L 09/28/21 06:04 Intake & Output 09/27/21 09/28/21 09/28/21 18:59 06:59 18:59 Intake Total 240 Output Total 200 Balance 40 Intake: Intake, IV Titration 240 Amount Sodium Chloride 0.9% 1, 240 000 ml @ 20 mls/hr IV . Q24H [facility] Rx#:[id number] Output: Urine 200 Other: Voiding Method Bedside Commode # Voids 6 - Exam GENERAL: The patient is alert and oriented x3, not in any acute distress. Well developed, well nourished. HEENT: Pupils are round and equally reacting to light. EOMI. No scleral icterus. No conjunctival pallor. Normocephalic, atraumatic. No pharyngeal erythema. No thyromegaly. CARDIOVASCULAR: S1 and S2 present. No murmurs, rubs, or gallops. PULMONARY: Chest is clear to auscultation, no wheezing or crackles. ABDOMEN: Soft, nontender, nondistended, normoactive bowel sounds. No palpable organomegaly. MUSCULOSKELETAL: No joint swelling or deformity. EXTREMITIES: No cyanosis, clubbing, or pedal edema. NEUROLOGICAL: Gross neurological examination did not reveal any focal deficits. SKIN: No rashes. no petechiae. - Labs CBC & Chem 7: 09/28/21 08:09 09/28/21 08:09 Labs: Abnormal Lab Results - Last 24 Hours (Table) 09/28/21 Range/Units 08:09 MCHC 30.5 L (32.0-37.0) g/dL Lymphocytes # 0.34 L (0.90-5.00) X 10*3/uL Eosinophils # 0 L (0.04-0.35) X 10*3/uL Assessment and Plan Assessment: -COVID-19 pneumonia with acute hypoxic respiratory failure secondary to COVID-1 9 pneumonia -elevated d-dimer without evidence of PE or DVT as noted on imaging -Chest pain most likely secondary to her cold pneumonia -Diarrhea secondary to COVID-19 infection, improved -Hyponatremia hypovolemic hyponatremia secondary to diarrhea -Hyperkalemia, improved and will continue low potassium diet -Elevated liver enzymes secondary to systemic inflammatory response from COVID- 19, trending down -DVT prophylaxis: Lovenox BID -Full code Plan: This is a pleasant 66% old female who presents with bilateral cord pneumonia and hypoxia. Continue with vitamin C, D and zinc. Continue with dexamethasone She finished her last dose of remdesivir on 09/28 Labs and medication were reviewed.. Continue same treatment. Continue with symptomatic treatment. Resume home medication. Monitor lytes and vitals. DVT and GI prophylaxis. Further recommendationsas per clinical course of the patient DVT prophylaxis: Subcutaneous heparin GI Prophylaxis: Pepcid Prognosis is guarded
[2021-09-28] MEDS: ASPIRIN 81 MG PO SCH (17:19)
[2021-09-28] MEDS: POTASSIUM CHLORIDE ER 20 MEQ TAB.ER PO SCH ×2 (17:19→18:12)
[2021-09-29] MEDS: SYMBICORT 160-4.5 MCG INHALER INHALATION SCH ×2 (08:09→19:59)
[2021-09-29] MEDS: TIOTROPIUM 2.5 MCG INHALER INHALATION SCH (08:09)
[2021-09-29] MEDS: CHOLECALCIFEROL 25 MCG (1000 IU) TABLET PO SCH (08:47)
[2021-09-29] MEDS: FAMOTIDINE 20 MG TAB PO SCH (08:47)
[2021-09-29] MEDS: ZINC SULFATE 220 MG CAP PO SCH (08:48)
[2021-09-29] MEDS: dexAMETHasone 2 MG TAB PO SCH (08:48)
[2021-09-29] MEDS: ASPIRIN 81 MG PO SCH (08:48)
[2021-09-29] MEDS: ASCORBIC ACID 500 MG TAB PO SCH ×2 (08:48→21:59)
[2021-09-29] MEDS: guaiFENesin 600 MG TABLET.ER PO SCH ×2 (08:48→21:59)
[2021-09-29] MEDS: ENOXAPARIN 40 MG/0.4 ML SYRINGE SQ SCH ×2 (08:48→22:00)
--- NOTE | 2021-09-29 10:57 | P.CRDCN ---
History of Present Illness Consult date: 09/29/21 Chief complaint: Chest discomfort History of present illness: This is a 66-year-old female patient with a past medical history significant for chronic obstructive pulmonary disease as well as history of lymphoma who was admitted to the hospital with COVID-19 infection. Requested to see the patient for chest discomfort. The patient presented with symptoms of increasing shortness of breath associated with cough but no indication that the patient did have any fever or chills. She was tested positive for COVID-19 infection. She was diagnosed was COVID-19 pneumonia and she currently on 6 L oxygen. Last night she developed discomfort in the chest and requested to see the patient for that reason. When the patient was seen and examined she was pointing toward the epigastric area and lower chest. Currently the chest discomfort has resolved. She is chest pain-free. She stated that she continues to have shortness of breath which she has been coughing extensively in the room with a sputum production. The EKG showed sinus rhythm was sinus tachycardia with diffuse nonspecific ST and T wave abnormalities. She underwent 3 sets of cardiac enzymes and came in to be abnormal but seems to be flat cross support. No echocardiogram was performed but is in process to be done. The patient was started on the aspirin for the mildly abnormal troponin. I'm going to add a small dose of beta jenae with Toprol-XL to the current medical regimen. At this point I would consider conservative medical approach in view of the resolving chest pain and maybe as an outpatient when she recovered she benefit from a stress test to rule out severe CAD. The mildly abnormal troponin also could be related to sinus tachycardia and hypoxemia related to COVID-19 infection. Severe cardiomyopathy to be ruled out as well. Past Medical History Past Medical History: Cancer, COPD Additional Past Medical History / Comment(s): Lymphoma History of Any Multi-Drug Resistant Organisms: None Reported Past Surgical History: Appendectomy Additional Past Surgical History / Comment(s): Bone marrow biopsy, several lymph node biopsies, colonoscopy, R breast benign biopsy, bilateral cataract removal/lens implants. Past Anesthesia/Blood Transfusion Reactions: No Reported Reaction, Motion Sickn ess Past Psychological History: No Psychological Hx Reported Smoking Status: Current every day smoker Past Alcohol Use History: None Reported Past Drug Use History: None Reported - Past Family History Father Family Medical History: Respiratory Disorder Additional Family Medical History / Comment(s): Father from pulmonary fibrosis. Mother Family Medical History: No Reported History Additional Family Medical History / Comment(s): Mother is healthy and 89yrs old. Medications and Allergies Home Medications Medication Instructions Recorded Confirmed Type Fluticasone/Vilanterol [Breo 1 puff INHALATION RT-BID 09/23/21 09/23/21 History Ellipta 200-25 Mcg Inhaler] Tiotropium 18 Mcg/Puff [Spiriva] 2 puff INHALATION RT-DAILY 09/23/21 09/23/21 History Allergies Allergy/AdvReac Type Severity Reaction Status Date / Time No Known Allergies Allergy Verified 09/23/21 16:06 Physical Exam Vitals: Vital Signs Temp Pulse Resp BP Pulse Ox 09/29/21 10:00 97.5 F L 88 20 152/94 93 L 09/29/21 06:00 97.8 F 76 18 159/88 96 09/29/21 02:31 97.3 F L 51 L 18 131/79 95 09/28/21 22:18 98.2 F 63 18 132/80 96 09/28/21 20:00 105 H 20 09/28/21 18:00 97.8 F 105 H 20 130/82 92 L 09/28/21 14:00 97.4 F L 102 H 18 126/84 94 L Intake and Output 09/28/21 09/29/21 09/29/21 22:59 06:59 14:59 Intake Total 2640 Output Total 200 Balance 2440 Intake: Oral 2640 Output: Urine 200 Other: Voiding Method Bedside Commode Bedside Commode # Voids 3 - Constitutional General appearance: no acute distress - Respiratory Respiratory: bilateral: diminished - Cardiovascular Rhythm: regular Heart sounds: normal: S1, S2 Results 09/28/21 08:09 09/28/21 08:09 Cardiac Enzymes 09/28/21 09/28/21 09/28/21 Range/Units 08:09 14:07 19:29 Lactate Dehydrogenase 331 H (120-246) U/L Troponin I 0.062 H* 0.055 H* (0.000-0.034) ng/mL 09/29/21 09/29/21 Range/Units 00:10 05:21 Lactate Dehydrogenase (120-246) U/L Troponin I 0.055 H* 0.064 H* (0.000-0.034) ng/mL CBC 09/28/21 Range/Units 08:09 WBC 5.63 (4.50-10.00) X 10*3/uL RBC 4.64 (4.10-5.20) X 10*6/uL Hgb 13.5 (12.0-15.0) g/dL Hct 44.2 (37.2-46.3) % Plt Count 221 (140-440) X 10*3/uL Comprehensive Metabolic Panel 09/28/21 Range/Units 08:09 Sodium 143 (135-145) mmol/L Potassium 3.4 L (3.5-5.5) mmol/L Chloride 110 H (96-109) mmol/L Carbon Dioxide 18.8 L (20.0-27.5) mmol/L BUN 14.8 (9.0-27.0) mg/dL Creatinine 0.5 L (0.6-1.5) mg/dL Glucose 120 H (70-110) mg/dL Calcium 9.1 (8.7-10.3) mg/dL Current Medications Generic Name Dose Route Start Last Admin Trade Name Freq PRN Reason Stop Dose Admin Acetaminophen 650 mg 09/23/21 14:56 Acetaminophen Tab 325 Mg Tab PO Q6HR PRN Mild Pain or Fever > 100.5 Alprazolam 0.25 mg 09/26/21 15:43 09/28/21 22:22 Alprazolam 0.25 Mg Tab PO 0.25 mg TID PRN Administration Anxiety Ascorbic Acid 500 mg 09/23/21 21:00 09/29/21 08:48 Ascorbic Acid 500 Mg Tab PO 500 mg BID ALEXANDRE Administration Aspirin 81 mg 09/28/21 16:30 09/29/21 08:48 Aspirin 81 Mg PO 81 mg DAILY ALEXANDRE Administration Budesonide/Formoterol Fumarate 2 puff 09/24/21 09:00 09/29/21 08:09 Symbicort 160-4.5 Mcg Inhaler INHALATION 2 puff RT-BID ALEXANDRE Administration Cholecalciferol 50 mcg 09/28/21 09:00 09/29/21 08:47 Cholecalciferol 25 Mcg (1000 Iu) Tablet PO 50 mcg DAILY ALEXANDRE Administration Dexamethasone 6 mg 09/24/21 09:00 09/29/21 08:48 Dexamethasone 2 Mg Tab PO 6 mg DAILY ALEXANDRE Administration Enoxaparin Sodium 40 mg 09/28/21 21:00 09/29/21 08:48 Enoxaparin 40 Mg/0.4 Ml Syringe SQ 40 mg BID ALEXANDRE Administration Famotidine 20 mg 09/25/21 09:00 09/29/21 08:47 Famotidine 20 Mg Tab PO 20 mg DAILY ALEXANDRE Administration Guaifenesin 600 mg 09/28/21 11:15 09/29/21 08:48 Guaifenesin 600 Mg Tablet.Er PO 600 mg Q12HR ALEXANDRE Administration Sodium Chloride 1,000 mls @ 20 mls/hr 09/23/21 15:00 09/28/21 13:59 Saline 0.9% IV 20 mls/hr .Q24H ALEXANDRE Administration Metoprolol Succinate 25 mg 09/30/21 09:00 Metoprolol Succinate (Er) 25 Mg Tab.Er.24h PO DAILY ALEXANDRE Miscellaneous Information 1 each 09/28/21 13:36 Potassium Replacement Protocol 1 Each Misc MISCELLANE DAILY PRN Per Protocol Protocol Naloxone HCl 0.2 mg 09/23/21 14:56 Naloxone 0.4 Mg/Ml 1 Ml Vial IV Q2M PRN Opioid Reversal Tiotropium [place] 2 puff 09/25/21 09:47 09/29/21 08:09 Tiotropium 2.5 Mcg Inhaler INHALATION 2 puff RT-DAILY ALEXANDRE Administration Zinc Sulfate 220 mg 09/24/21 09:00 09/29/21 08:48 Zinc Sulfate 220 Mg Cap PO 220 mg DAILY ALEXANDRE Administration Intake and Output 09/28/21 09/29/21 09/29/21 22:59 06:59 14:59 Intake Total 2640 Output Total 200 Balance 2440 Intake: Oral 2640 Output: Urine 200 Other: Voiding Method Bedside Commode Bedside Commode # Voids 3 09/28/21 08:09 09/28/21 08:09 Assessment and Plan Assessment: Assessment #1 COVID-19 pneumonia #2 COPD exacerbation #3 history of lymphoma #4 evidence of myocardial injury without any evidence of ischemia Plan #1 agree to continue the current dose of aspirin #2 at small dose of beta jenae to the current medical regimen #3 follow-up on the echocardiogram #4 consider medical treatment for the mildly abnormal troponin at this point which is likely related to the tachycardia and hypoxemia #5 follow-up with the patient
[2021-09-29] MEDS: ALPRAZolam 0.25 MG TAB PO PRN ×2 (12:40→21:59)
--- NOTE | 2021-09-29 15:12 | P.PN ---
Subjective 66-year-old female presents with shortness of breath nausea generalized weakness denied any fever patient recently completed chemotherapy in early August for lymphoma. Patient denied dysuria nausea vomiting patient is found to have Covid 19. Patient had a CT angios the chest which did not show any significant infiltrate but did show some fibrotic changes and emphysematous changes no pulmonary embolus him on the CT although patient is requiring 5 L of oxygen at this time. Pulmonary was consulted patient doesn't have any wheezing on exam patient does smoke. 09/24/2021 Patient evaluated in the EC while pending bed on the medical floor. She denies any cough, does report some shortness of breath at rest. She is now on 6L Nasal cannula with an oxygen saturation of 92%. She denies any chest pain today. Denies nausea vomiting, reports diarrhea today. Blood pressures on the lower side 92/60 while in the room, patient states this is low for her she usually runs in the 130's to 140's. Heart rate is 85. Labs today show a WBC count of 1.5 0, hemoglobin of 13.2, D-Dimer yesterday 0.86, sodium 141, potassium 4.6, B 12, Creatinine 0.5. Glucose 138. Repeat labs and inflammatory markers will be repeated tomorrow. She is being followed closely by pulmonary services. Patient follows with oncology at [place]. No other complaints today. She is on Vitamin C, Decadron, lovenox, zinc, and was started on Remdesivir. Additionally, she continues to smoke about 1/2 pack per day, history of COPD on symbicort. Prognosis is guarded, monitor respiratory status closely. 09/25/2021 Patient is seen and evaluated in follow-up continues on 6 L of oxygen via nasal cannula maintaining oxygen saturation of 90%. Patient has had 97% on 6 L via nasal cannula this morning and denies any worsening shortness of breath. Pulmonary is following and discussed with the patient about attempting to maintain 5 L of oxygen with oxygen saturations above 90% and will consider discharging home if cleared by pulmonary. Patient is continued on Remdesivir date 2 along with dexamethasone and inhalers along with Lovenox and will continue. Patient is extremely anxious to go home and states she feels she would be better at home although still requiring 6 L of oxygen. Case management following and arrangements for home oxygen are being planned. 09/26/2021 She is seen in follow-up this morning continues to be on 5 L of oxygen with oxygen saturation of 94% and pulmonary is following closely. Continues to be dyspneic with exertion and slightly more anxious and tearful today as she just heard her is positive for Covid at home. Patient states he is doing well not requiring any oxygen. Patient continues on oral dexamethasone along with vitamin and zinc supplements and has been continued on Lovenox and is currently undergoing Remdesivir day 3 of 5. Discussed with the patient about increasing activity is tolerating and continuing to use incentive spirometer at least 10 times every hour while awake. 09/27/2021 Patient is seen this morning and currently weaning FiO2 as tolerated. Patient is now currently maintaining oxygen saturations above 90% on 4 L via nasal cannula. Prescription was provided to case management to arrange for possible oxygen on discharge. Patient continues to be followed closely by pulmonary and remains on Remdesivir along with vitamin and zinc, oral dexamethasone, and Lovenox injections. Patient denies any worsening shortness of breath and states she is feeling better. Patient is tolerating diet with no reports of nausea or vomiting noted. Patient is afebrile. Will repeat a.m. chest x-ray along with labs and inflammatory markers. Encouraged incentive spirometer at least 10 times every hour while awake. 09/28/2021 Patient today was not feeling good, she was complaining of from more dyspnea and more coughing with difficult to bring him. Follow-up, she was asking for this next was provided. She remains on 4 L of oxygen to keep her oxygen with saturation of 90-91%. She is also complaining from central chest pain which looks pleuritic as it is sharp, central nonradiating and worsened with cough and deep breathing. Chest x-ray showing emphysema and pneumonia EKG showing normal sinus rhythm with PACs, at rate of 80/m, QTC 435, no significant ST-T changes. Troponin is pending.. Today is her last dose of remdesivir. Continue with dexamethasone and multiple vitamins, Lovenox and Pepcid 09/29/2021 Today patient looks better, she is breathing better although she still have some difficulty taking a breath. Cough and is easier today and she can bring some stuff up after she was placed on cough medicine No more chest pain today. Core Dropper input is appreciated, most likely she mora s some myocardial injury secondary to hypoxia and tachycardia with no evidence of ischemia, aspirin 81 mg, and metoprolol 25 mg daily were added. Lovenox dose increased to twice daily. An echocardiogram is ordered but pending. Patient breathing remains stable at 4 L/m with saturation of 93%. She remains on the same treatment of dexamethasone, vitamin C, D and zinc. Chest x-ray showing emphysema and pneumonia. Patient aware she has history of COPD and today she has some prolongation of her breathing so increase her dexamethasone to twice daily. Objective - Vital Signs Vital signs: Vital Signs Temp 97.5 F L 09/29/21 10:00 Pulse 88 09/29/21 10:00 Resp 20 09/29/21 10:00 BP 152/94 09/29/21 10:00 Pulse Ox 93 L 09/29/21 10:00 Intake & Output 09/28/21 09/29/21 09/29/21 18:59 06:59 18:59 Intake Total 1080 1560 Output Total 200 Balance 1080 1360 Intake: Oral 1080 1560 Output: Urine 200 Other: Voiding Method Bedside Commode Bedside Commode # Voids 3 3 - Exam GENERAL: The patient is alert and oriented x3, not in any acute distress. Well developed, well nourished. HEENT: Pupils are round and equally reacting to light. EOMI. No scleral icterus. No conjunctival pallor. Normocephalic, atraumatic. No pharyngeal erythema. No thyromegaly. CARDIOVASCULAR: S1 and S2 present. No murmurs, rubs, or gallops. PULMONARY: Chest is clear to auscultation, no wheezing or crackles. ABDOMEN: Soft, nontender, nondistended, normoactive bowel sounds. No palpable organomegaly. MUSCULOSKELETAL: No joint swelling or deformity. EXTREMITIES: No cyanosis, clubbing, or pedal edema. NEUROLOGICAL: Gross neurological examination did not reveal any focal deficits. SKIN: No rashes. no petechiae. - Labs CBC & Chem 7: 09/28/21 08:09 09/28/21 08:09 Labs: Abnormal Lab Results - Last 24 Hours (Table) 09/28/21 09/28/21 09/28/21 Range/Units 08:09 08:09 14:07 MCHC 30.5 L (32.0-37.0) g/dL Lymphocytes # 0.34 L (0.90-5.00) X 10*3/uL Eosinophils # 0 L (0.04-0.35) X 10*3/uL Potassium 3.4 L (3.5-5.5) mmol/L Chloride 110 H (96-109) mmol/L Carbon Dioxide 18.8 L (20.0-27.5) mmol/L Creatinine 0.5 L (0.6-1.5) mg/dL BUN/Creatinine Ratio 29.60 H (12.00-20.00) Ratio Glucose 120 H (70-110) mg/dL Lactate Dehydrogenase 331 H (120-246) U/L Troponin I 0.062 H* (0.000-0.034) ng/mL 09/28/21 09/29/21 09/29/21 Range/Units 19:29 00:10 05:21 MCHC (32.0-37.0) g/dL Lymphocytes # (0.90-5.00) X 10*3/uL Eosinophils # (0.04-0.35) X 10*3/uL Potassium (3.5-5.5) mmol/L Chloride (96-109) mmol/L Carbon Dioxide (20.0-27.5) mmol/L Creatinine (0.6-1.5) mg/dL BUN/Creatinine Ratio (12.00-20.00) Ratio Glucose (70-110) mg/dL Lactate Dehydrogenase (120-246) U/L Troponin I 0.055 H* 0.055 H* 0.064 H* (0.000-0.034) ng/mL Assessment and Plan Assessment: -COVID-19 pneumonia with acute hypoxic respiratory failure secondary to COVID- 19 pneumonia -elevated d-dimer without evidence of PE or DVT as noted on imaging -Chest pain most likely secondary to her hypoxia and tachycardia -Diarrhea secondary to COVID-19 infection, improved -Hyponatremia hypovolemic hyponatremia secondary to diarrhea -Hyperkalemia, improved and will continue low potassium diet -Elevated liver enzymes secondary to systemic inflammatory response from COVID- 19, trending down -DVT prophylaxis: Lovenox BID -Full code Plan: This is a pleasant 66yo old female who presents with bilateral cord pneumonia and hypoxia. Continue with vitamin C, D and zinc. Continue with dexamethasone twice a day. She finished her last dose of remdesivir on 09/28 Pulmonary team following the case closely. Aspirin, metoprolol 25 mg were added. Echocardiogram is pending. Cardiology consult Labs and medication were reviewed.. Continue same treatment. Continue with symptomatic treatment. Resume home medication. Monitor lytes and vitals. DVT and GI prophylaxis. Further recommendationsas per clinical course of the patient DVT prophylaxis: Subcutaneous Lovenox 40 mg twice a day GI Prophylaxis: Pepcid Prognosis is guarded
[2021-09-29] MEDS: SODIUM CHLORIDE 0.9% 1,000 ML IV SCH (17:05)
[2021-09-30] MEDS: ENOXAPARIN 40 MG/0.4 ML SYRINGE SQ SCH ×2 (07:41→19:07)
[2021-09-30] MEDS: guaiFENesin 600 MG TABLET.ER PO SCH ×2 (07:42→20:03)
[2021-09-30] MEDS: CHOLECALCIFEROL 25 MCG (1000 IU) TABLET PO SCH (07:42)
[2021-09-30] MEDS: ASPIRIN 81 MG PO SCH (07:42)
[2021-09-30] MEDS: ZINC SULFATE 220 MG CAP PO SCH (07:42)
[2021-09-30] MEDS: ASCORBIC ACID 500 MG TAB PO SCH ×2 (07:42→20:03)
[2021-09-30] MEDS: dexAMETHasone 2 MG TAB PO SCH (07:42)
[2021-09-30] MEDS: METOPROLOL SUCCINATE (ER) 25 MG TAB.ER.24H PO SCH (07:42)
[2021-09-30] MEDS: FAMOTIDINE 20 MG TAB PO SCH (07:42)
[2021-09-30] MEDS: TIOTROPIUM 2.5 MCG INHALER INHALATION SCH (08:14)
[2021-09-30] MEDS: SYMBICORT 160-4.5 MCG INHALER INHALATION SCH ×2 (08:14→19:32)
--- NOTE | 2021-09-30 10:23 | P.PN ---
Subjective Progress Note Date: 09/30/21 CHIEF COMPLAINT: Chest pain HISTORY OF PRESENT ILLNESS: This is a 66-year-old female patient with a past medical history significant for chronic obstructive pulmonary disease as well as history of lymphoma who was admitted to the hospital with COVID-19 infection. Requested to see the patient for chest discomfort. The patient presented with symptoms of increasing shortness of breath associated with cough but no indication that the patient did have any fever or chills. She was tested positive for COVID-19 infection. She was diagnosed was COVID-19 pneumonia and she currently on 6 L oxygen. Last night she developed discomfort in the chest and requested to see the patient for that reason. When the patient was seen and examined she was pointing toward the epigastric area and lower chest. Currently the chest discomfort has resolved. She is chest pain-free. She stated that she continues to have shortness of breath which she has been coughing extensively in the room with a sputum production. The EKG showed sinus rhythm was sinus tachycardia with diffuse nonspecific ST and T wave abnormalities. She underwent 3 sets of cardiac en zymes and came in to be abnormal but seems to be flat cross support. No echocardiogram was performed but is in process to be done. The patient was started on the aspirin for the mildly abnormal troponin. I'm going to add a small dose of beta jenae with Toprol-XL to the current medical regimen. At this point I would consider conservative medical approach in view of the resolving chest pain and maybe as an outpatient when she recovered she benefit from a stress test to rule out severe CAD. The mildly abnormal troponin also could be related to sinus tachycardia and hypoxemia related to COVID-19 infection. Severe cardiomyopathy to be ruled out as well. 09/30/2021 Case discussed with patients nurse who reports patient had an episode of chest pain prior to her shift this morning. Currently denies any chest pain or pressure. Has mild SOB. She is on 3L NC with oxygen saturations greater than 92%. She is afebrile. PHYSICAL EXAM: Thorough physical exam not completed secondary to limited evaluation/examination due to Covid19 ASSESSMENT: Covid 19 pneumonia COPD exacerbation Abnormal troponins, likely secondary to Covid History of lymphoma PLAN: 2D echo ordered. Await results Continue current cardiac medications If echo does not reveal any significant abnormalities, we will sign off and have the patient follow up on an outpatient basis to undergo stress testing when she is recovered from Covid Nurse practitioner note has been reviewed by physician. Signing provider agrees with the documented findings, assessment, and plan of care. Objective - Vital Signs Vital signs: Vital Signs Temp 98.7 F 09/30/21 09:48 Pulse 81 09/30/21 09:48 Resp 17 09/30/21 09:48 BP 127/81 09/30/21 09:48 Pulse Ox 94 L 09/30/21 09:48 Intake & Output 09/29/21 09/30/21 09/30/21 18:59 06:59 18:59 Intake Total 960 Output Total 200 Balance 760 Intake: Oral 960 Output: Urine 200 Other: Voiding Method Bedside Commode Bedside Commode Bedside Commode # Voids 3 - Labs CBC & Chem 7: 09/28/21 08:09 09/28/21 08:09
--- NOTE | 2021-09-30 11:27 | ECHOF ---
Referral Reason:Rule out heart disease MEASUREMENTS -------- HEIGHT: 157.5 cm WEIGHT: 69.4 kg BP: 132/83 RVIDd: 2.3 cm (< 3.3) IVSd: 1.1 cm (0.6 - 1.1) LVIDd: 3.6 cm (3.9 - 5.3) LVPWd: 1.1 cm (0.6 - 1.1) IVSs: 1.6 cm LVIDs: 2.4 cm LVPWs: 1.7 cm LA Diam: 2.2 cm (2.7 - 3.8) Ao Diam: 3.0 cm (2.0 - 3.7) AV Cusp: 2.0 cm (1.5 - 2.6) MV EXCURSION: 9.718 mm (> 18.000) MV EF SLOPE: 31 mm/s (70 - 150) EPSS: 0.8 cm MV E Beau: 0.78 m/s MV DecT: 282 ms MV A Beau: 0.95 m/s MV E/A Ratio: 0.82 RAP: 5.00 mmHg RVSP: 20.32 mmHg FINDINGS -------- Sinus rhythm. This was a technically adequate study. The left ventricular size is normal. There is borderline concentric left ventricular hypertrophy. Overall left ventricular systolic function is normal with, an EF between 60 - 65 %. The right ventricle is normal in size. The left atrium is normal in size. The right atrium is normal in size. Interatrial and interventricular septum intact. The aortic valve is trileaflet, and appears structurally normal. No aortic stenosis or regurgitation. Mild mitral annular calcification present. Mild tricuspid regurgitation present. Right ventricular systolic pressure is normal at < 35 mmHg. The pulmonic valve is normal. The aortic root size is normal. Normal inferior vena cava with normal inspiratory collapse consistent with estimated right atrial pre ssure of 5 mmHg. There is no pericardial effusion. CONCLUSIONS -------- 1. The left ventricular size is normal. 2. There is borderline concentric left ventricular hypertrophy. 3. Overall left ventricular systolic function is normal with, an EF between 60 - 65 %. 4. The aortic valve is trileaflet, and appears structurally normal. No aortic stenosis or regurgitati on. 5. Mild mitral annular calcification present. 6. Mild tricuspid regurgitation present. 7. There is no pericardial effusion. TRAM INSPECTOR: Cyndi Pike RDCS
[2021-09-30] MEDS: ALPRAZolam 0.25 MG TAB PO PRN ×2 (13:54→22:30)
[2021-09-30] MEDS: SODIUM CHLORIDE 0.9% 1,000 ML IV SCH (16:49)
--- NOTE | 2021-09-30 20:10 | P.PN ---
Subjective 66-year-old female presents with shortness of breath nausea generalized weakness denied any fever patient recently completed chemotherapy in early August for lymphoma. Patient denied dysuria nausea vomiting patient is found to have Covid 19. Patient had a CT angios the chest which did not show any significant infiltrate but did show some fibrotic changes and emphysematous changes no pulmonary embolus him on the CT although patient is requiring 5 L of oxygen at this time. Pulmonary was consulted patient doesn't have any wheezing on exam patient does smoke. 09/24/2021 Patient evaluated in the EC while pending bed on the medical floor. She denies any cough, does report some shortness of breath at rest. She is now on 6L Nasal cannula with an oxygen saturation of 92%. She denies any chest pain today. Denies nausea vomiting, reports diarrhea today. Blood pressures on the lower side 92/60 while in the room, patient states this is low for her she usually runs in the 130's to 140's. Heart rate is 85. Labs today show a WBC count of 1.5 0, hemoglobin of 13.2, D-Dimer yesterday 0.86, sodium 141, potassium 4.6, B 12, Creatinine 0.5. Glucose 138. Repeat labs and inflammatory markers will be repeated tomorrow. She is being followed closely by pulmonary services. Patient follows with oncology at [place]. No other complaints today. She is on Vitamin C, Decadron, lovenox, zinc, and was started on Remdesivir. Additionally, she continues to smoke about 1/2 pack per day, history of COPD on symbicort. Prognosis is guarded, monitor respiratory status closely. 09/25/2021 Patient is seen and evaluated in follow-up continues on 6 L of oxygen via nasal cannula maintaining oxygen saturation of 90%. Patient has had 97% on 6 L via nasal cannula this morning and denies any worsening shortness of breath. Pulmonary is following and discussed with the patient about attempting to maintain 5 L of oxygen with oxygen saturations above 90% and will consider discharging home if cleared by pulmonary. Patient is continued on Remdesivir date 2 along with dexamethasone and inhalers along with Lovenox and will continue. Patient is extremely anxious to go home and states she feels she would be better at home although still requiring 6 L of oxygen. Case management following and arrangements for home oxygen are being planned. 09/26/2021 She is seen in follow-up this morning continues to be on 5 L of oxygen with oxygen saturation of 94% and pulmonary is following closely. Continues to be dyspneic with exertion and slightly more anxious and tearful today as she just heard her is positive for Covid at home. Patient states he is doing well not requiring any oxygen. Patient continues on oral dexamethasone along with vitamin and zinc supplements and has been continued on Lovenox and is currently undergoing Remdesivir day 3 of 5. Discussed with the patient about increasing activity is tolerating and continuing to use incentive spirometer at least 10 times every hour while awake. 09/27/2021 Patient is seen this morning and currently weaning FiO2 as tolerated. Patient is now currently maintaining oxygen saturations above 90% on 4 L via nasal cannula. Prescription was provided to case management to arrange for possible oxygen on discharge. Patient continues to be followed closely by pulmonary and remains on Remdesivir along with vitamin and zinc, oral dexamethasone, and Lovenox injections. Patient denies any worsening shortness of breath and states she is feeling better. Patient is tolerating diet with no reports of nausea or vomiting noted. Patient is afebrile. Will repeat a.m. chest x-ray along with labs and inflammatory markers. Encouraged incentive spirometer at least 10 times every hour while awake. 09/28/2021 Patient today was not feeling good, she was complaining of from more dyspnea and more coughing with difficult to bring him. Follow-up, she was asking for this next was provided. She remains on 4 L of oxygen to keep her oxygen with saturation of 90-91%. She is also complaining from central chest pain which looks pleuritic as it is sharp, central nonradiating and worsened with cough and deep breathing. Chest x-ray showing emphysema and pneumonia EKG showing normal sinus rhythm with PACs, at rate of 80/m, QTC 435, no significant ST-T changes. Troponin is pending.. Today is her last dose of remdesivir. Continue with dexamethasone and multiple vitamins, Lovenox and Pepcid 09/29/2021 Today patient looks better, she is breathing better although she still have some difficulty taking a breath. Cough and is easier today and she can bring some stuff up after she was placed on cough medicine No more chest pain today. Collect On Delivery Clerk input is appreciated, most likely she mora s some myocardial injury secondary to hypoxia and tachycardia with no evidence of ischemia, aspirin 81 mg, and metoprolol 25 mg daily were added. Lovenox dose increased to twice daily. An echocardiogram is ordered but pending. Patient breathing remains stable at 4 L/m with saturation of 93%. She remains on the same treatment of dexamethasone, vitamin C, D and zinc. Chest x-ray showing emphysema and pneumonia. Patient aware she has history of COPD and today she has some prolongation of her breathing so increase her dexamethasone to twice daily. 09/30/2021 Patient admitted with Covid pneumonia which is improving, her oxygen requirement came down today from 4 down to 3 L/m, she is breathing easier. No much suffering from coughing. No chest pain. No abdominal pain. No diarrhea. Pulmonary stop seeing the patient. Cardiology evaluated the patient for chest pain and mildly elevated troponin and they added metoprolol 25 mg, baby aspirin 81 mg and increased the dose of Lovenox to twice a day. Echocardiogram is pending and once the results is back and is unremarkable for significant abnormality them most likely we will discharge the patient and asked her to follow up as an outpatient with gunner's mate m for stress test further recommendation. Objective - Vital Signs Vital signs: Vital Signs Temp 98.7 F 09/30/21 09:48 Pulse 81 09/30/21 09:48 Resp 17 09/30/21 09:48 BP 127/81 09/30/21 09:48 Pulse Ox 94 L 09/30/21 09:48 Intake & Output 09/29/21 09/30/21 09/30/21 18:59 06:59 18:59 Intake Total 960 Output Total 200 Balance 760 Intake: Oral 960 Output: Urine 200 Other: Voiding Method Bedside Commode Bedside Commode Bedside Commode # Voids 3 - Exam GENERAL: The patient is alert and oriented x3, not in any acute distress. Well developed, well nourished. HEENT: Pupils are round and equally reacting to light. EOMI. No scleral icterus. No conjunctival pallor. Normocephalic, atraumatic. No pharyngeal erythema. No thyromegaly. CARDIOVASCULAR: S1 and S2 present. No murmurs, rubs, or gallops. PULMONARY: Chest is clear to auscultation, no wheezing or crackles. ABDOMEN: Soft, nontender, nondistended, normoactive bowel sounds. No palpable organomegaly. MUSCULOSKELETAL: No joint swelling or deformity. EXTREMITIES: No cyanosis, clubbing, or pedal edema. NEUROLOGICAL: Gross neurological examination did not reveal any focal deficits. SKIN: No rashes. no petechiae. - Labs CBC & Chem 7: 09/28/21 08:09 09/28/21 08:09 Assessment and Plan Assessment: -COVID-19 pneumonia with acute hypoxic respiratory failure secondary to COVID- 19 pneumonia -elevated d-dimer without evidence of PE or DVT as noted on imaging -Chest pain most likely secondary to her hypoxia and tachycardia -Diarrhea secondary to COVID-19 infection, improved -Hyponatremia hypovolemic hyponatremia secondary to diarrhea -Hyperkalemia, improved and will continue low potassium diet -Elevated liver enzymes secondary to systemic inflammatory response from COVID- 19, trending down -DVT prophylaxis: Lovenox BID -Full code Plan: This is a pleasant 66yo old female who presents with bilateral cord pneumonia and hypoxia. Continue with vitamin C, D and zinc. Continue with dexamethasone twice a day. She finished her last dose of remdesivir on 09/28 Pulmonary team following the case closely. Aspirin, metoprolol 25 mg were added. Echocardiogram is pending. Cardiology consult Labs and medication were reviewed.. Continue same treatment. Continue with symptomatic treatment. Resume home medication. Monitor lytes and vitals. DVT and GI prophylaxis. Further recommendationsas per clinical course of the patien t DVT prophylaxis: Subcutaneous Lovenox 40 mg twice a day GI Prophylaxis: Pepcid Prognosis is guarded
[2021-10-01] MEDS: METOPROLOL SUCCINATE (ER) 25 MG TAB.ER.24H PO SCH (08:34)
[2021-10-01] MEDS: ASCORBIC ACID 500 MG TAB PO SCH (08:34)
[2021-10-01] MEDS: FAMOTIDINE 20 MG TAB PO SCH (08:34)
[2021-10-01] MEDS: dexAMETHasone 2 MG TAB PO SCH (08:34)
[2021-10-01] MEDS: CHOLECALCIFEROL 25 MCG (1000 IU) TABLET PO SCH (08:34)
[2021-10-01] MEDS: ASPIRIN 81 MG PO SCH (08:34)
[2021-10-01] MEDS: ZINC SULFATE 220 MG CAP PO SCH (08:34)
[2021-10-01] MEDS: guaiFENesin 600 MG TABLET.ER PO SCH (08:34)
[2021-10-01] MEDS: TIOTROPIUM 2.5 MCG INHALER INHALATION SCH (08:35)
[2021-10-01] MEDS: SYMBICORT 160-4.5 MCG INHALER INHALATION SCH (08:36)
[2021-10-01] MEDS: ENOXAPARIN 40 MG/0.4 ML SYRINGE SQ SCH (08:36)
[2021-10-01] MEDS: ALPRAZolam 0.25 MG TAB PO PRN ×2 (10:10→15:37)
[2021-10-01] MEDS ORDERED: ALPRAZolam 0.25 MG TAB PO STA (10:27)
[2021-10-01 15:35] VITALS: BP 118/76; PULSE 91; RESP 18; TEMP 98.3
[2021-10-01] MEDS: SODIUM CHLORIDE 0.9% 1,000 ML IV SCH (15:36)
--- NOTE | 2021-10-01 22:28 | P.DS ---
Providers Date of admission: 09/23/21 14:57 Attending physician: Lars Ardon Consults: 09/23/21 14:57 Consult Physician Routine Consulting Provider: Henrique Orellana Consult Reason/Comments: covid Do you want consulting provider notified?: Yes Primary care physician: Jose Hernández [facility] Course: Diagnoses: -COVID-19 pneumonia with acute hypoxic respiratory failure secondary to COVID- 19 pneumonia -elevated d-dimer without evidence of PE or DVT as noted on imaging -Chest pain with mildly elevated troponin most likely secondary to her hypoxia and tachycardia, evaluated by inspection clerk and cleared for discharge for outpatient stress test -Diarrhea secondary to COVID-19 infection, improved -Hyponatremia hypovolemic hyponatremia secondary to diarrhea -Elevated liver enzymes secondary to systemic inflammatory response from COVID- 19, trending down -Stage IV lymphoma, she follow up with her oncologist as an outpatient -Anxiety and episodes of panic attacks, resolved. Patient discharged on short c ourse of Xanax. Hospital course: 66-year-old female with multiple medical problems including stage IV lymphoma, presents with shortness of breath nausea generalized weakness Patient's was found to have bilateral Covid pneumonia and hypoxia, she's been evaluated by film mounter and treated with dexamethasone, vitamin C, vitamin D and zinc, also she received Remdesivir per protocol as well as Lovenox and Pepcid, showed interval improvement and her oxygen requirements came down to 3 L/m on the day of discharge with oxygen saturation of 90-92%, she qualify for home oxygen and it was delivered at bedside. Also patient developed an episode of central chest pain secondary to tachycardia and hypoxia, she has mildly elevated troponin. Transportation Engineering Technician saw the patient and recommended echocardiogram with EF 60-65%, upon his recommendation aspirin 81 mg added as well as metoprolol 25 mg, patient felt better and her chest pain improved and resolved and inspection clerk eventually saw the patient and to her for discharge. Today prior to discharge to follow up on panic attack that's resolved completely after Xanax 1, she slept well and woke up feeling much better and willing to go home. Other than that patient is pleasant, fully awake and oriented, denies any change in urine or bowel habits or fever Patient was fit for discharge by film mounter and inspection clerk Problems and management plan were discussed with the patient and he verbalized understanding and acceptance Patient was found stable and can be discharged home but in guarded prognosis however he needs follow-up as an outpatient. Patient was instructed to follow up with PCP Dr. Hernández within one week and patient agrees with the appointments made with his PA tomorrow 10/02 as virtual appointment. Also she was instructed to follow up with Dr. Lamar and she agrees with appointment with him on 10/31/21 The patient was instructed to follow up with her inspection clerk Dr. Martell in 2 weeks for outpatient stress test, she is aware of the need for stress test and she agrees to call and make her own appointment Also she told me that she is going to follow up with her oncologist Dr. Marko Carias (!spece) at [facility] Physical exam -Gen: patient is a AAOx3, no distress, thin built, with alopecia and pallor CVS: S1-S2, RRR, no murmur Lungs: B/L CTA, no wheezing Abdomen: soft, no distention, no tenderness, positive bowel sounds Extremity: no leg edema or induration Time spent more than 35 minutes Patient Condition at Discharge: Critical Plan - Discharge Summary Discharge Rx Participant: No New Discharge Prescriptions: New dexAMETHasone ORAL [Hexadrol] 6 mg PO DAILY 3 Days #9 tab Ascorbic Acid [Vitamin C] 500 mg PO BID #60 tab ALPRAZolam [Xanax] 0.25 mg PO BID PRN 2 Days #4 tab PRN Reason: Agitation Or Acute Anxiety Aspirin 81 mg PO DAILY #30 tab guaiFENesin [Mucinex] 600 mg PO Q12HR 10 Days #20 tablet Zinc Sulfate [Orazinc] 220 mg PO DAILY #30 cap Famotidine [Pepcid] 20 mg PO DAILY #30 tab Metoprolol Succinate (ER) [Toprol XL] 25 mg PO DAILY #30 tablet Cholecalciferol [Vitamin D3 (25 Mcg = 1000 Iu)] 50 mcg PO DAILY #60 tablet Continue Fluticasone/Vilanterol [Breo Ellipta 200-25 Mcg Inhaler] 1 puff INHALATION RT-BID Tiotropium 18 Mcg/Puff [Spiriva] 2 puff INHALATION RT-DAILY Discharge Medication List Fluticasone/Vilanterol [Breo Ellipta 200-25 Mcg Inhaler] 1 puff INHALATION RT- BID 09/23/21 [History] Tiotropium 18 Mcg/Puff [Spiriva] 2 puff INHALATION RT-DAILY 09/23/21 [History] ALPRAZolam [Xanax] 0.25 mg PO BID PRN 2 Days #4 tab 10/01/21 [Rx] Ascorbic Acid [Vitamin C] 500 mg PO BID #60 tab 10/01/21 [Rx] Aspirin 81 mg PO DAILY #30 tab 10/01/21 [Rx] Cholecalciferol [Vitamin D3 (25 Mcg = 1000 Iu)] 50 mcg PO DAILY #60 tablet 10/01/21 [Rx] Famotidine [Pepcid] 20 mg PO DAILY #30 tab 10/01/21 [Rx] Metoprolol Succinate (ER) [Toprol XL] 25 mg PO DAILY #30 tablet 10/01/21 [Rx] Zinc Sulfate [Orazinc] 220 mg PO DAILY #30 cap 10/01/21 [Rx] dexAMETHasone ORAL [Hexadrol] 6 mg PO DAILY 3 Days #9 tab 10/01/21 [Rx] guaiFENesin [Mucinex] 600 mg PO Q12HR 10 Days #20 tablet 10/01/21 [Rx] Follow up Appointment(s)/Referral(s): Henrique Orellana MD [STAFF PHYSICIAN] - 10/31/21 1:00 pm Dheeraj Mauricio MD [STAFF PHYSICIAN] - 2 Weeks (you will need a stress test for your heart as an outpatient setting. Office will call with appointment time) [facility] [NON-STAFF] - (*Please call [facility] once home to arrange delivery of the oxygen concentrator. ) Jose Hernández DO [Primary Care Provider] - 10/02/21 9:40 am (Virtual appointment with April 09:40am) Patient Instructions/Handouts: Coronavirus Disease 2019 (COVID-19), Using Oxygen at Home (DC) Activity/Diet/Wound Care/Special Instructions: heart healthy diet activity is restricted till you see your doctor please follow up with your oncologist Dr.Joe Pedraza at [place] within one week , please call to make an appointment , you have the contact information at home as you informed the medical team Discharge Disposition: HOME WITH HOME HEALTH SERVICES
== END 2021-10-01 16:59 | disposition home health service (06) | DRG 177 ==
LOC: EC 13:10 → 4SSUR 14:57
PROVIDERS: ADMIT Hospitalist; ATTEND Hospitalist
DX: U07.1 COVID-19 (principal); J12.82 Pneumonia due to coronavirus disease 2019; J96.01 Acute respiratory failure with hypoxia; J44.0 Chronic obstructive pulmonary disease with (acute) lower respiratory infection; J44.1 Chronic obstructive pulmonary disease with (acute) exacerbation; C85.90 Non-Hodgkin lymphoma, unspecified, unspecified site; E87.1 Hypo-osmolality and hyponatremia; A08.39 Other viral enteritis; R94.5 Abnormal results of liver function studies; R79.1 Abnormal coagulation profile; R77.8 Other specified abnormalities of plasma proteins; R00.0 Tachycardia, unspecified; F17.210 Nicotine dependence, cigarettes, uncomplicated; Z71.6 Tobacco abuse counseling; E86.1 Hypovolemia; E87.5 Hyperkalemia; F41.0 Panic disorder [episodic paroxysmal anxiety]; Z87.11 Personal history of peptic ulcer disease; Z98.42 Cataract extraction status, left eye; Z98.41 Cataract extraction status, right eye; Z96.1 Presence of intraocular lens; Z92.21 Personal history of antineoplastic chemotherapy; K57.90 Diverticulosis of intestine, part unspecified, without perforation or abscess without bleeding; Z98.890 Other specified postprocedural states; Z90.49 Acquired absence of other specified parts of digestive tract; Z83.6 Family history of other diseases of the respiratory system; Z79.51 Long term (current) use of inhaled steroids
CPT/HCPCS: 36415; 71045; 71275; 80048; 80053; 83605; 83615; 83735; 83880; 84145; 84484; 85025; 85027; 85379; 85610; 85730; 86140; 87635; 93005; 93306; 94640; 94760; 96365; 96375; 99285

== ENCOUNTER 2021-10-08 15:38 | Inpatient (IN) | payer MEDICARE, OTHER ==
[2021-10-08] MEDS ORDERED: ALBUTEROL NEBULIZED 2.5 MG/3 ML INHALATION STA (15:41)
[2021-10-08] MEDS ORDERED: methylPREDNISolone SOD SUCCI 125 MG/2 ML VIAL IV STA (15:41)
[2021-10-08] MEDS ORDERED: IPRATROPIUM 0.5 MG/2.5 ML NEBU INHALATION STA (15:41)
--- NOTE | 2021-10-08 15:48 | ED ---
General Adult HPI - General Stated complaint: SOB Time Seen by Provider: 10/08/21 15:40 Source: patient, EMS, RN notes reviewed, old records reviewed Mode of arrival: EMS Limitations: physical limitation - History of Present Illness Initial comments: 66-year-old female with recent hospital admission for COPD exacerbation and severe bilateral: Pneumonia. Patient had contacted the paramedics for evaluation of increased dyspnea. History was very limited the patient was found to be hypoxic in the 70s on 4 L nasal cannula. She was placed on CPAP and transported as prior to 1. History limited from the patient secondary to severe respiratory distress. She does deny central chest pain. Denies persistent fever. - Related Data Home Medications Medication Instructions Recorded Confirmed Fluticasone/Vilanterol [Breo 1 puff INHALATION RT-BID 09/23/21 10/08/21 Ellipta 200-25 Mcg Inhaler] Tiotropium 18 Mcg/Puff [Spiriva] 2 puff INHALATION RT-DAILY 09/23/21 10/08/21 Previous Rx's Medication Instructions Recorded ALPRAZolam [Xanax] 0.25 mg PO BID PRN 2 Days #4 tab 10/01/21 Ascorbic Acid [Vitamin C] 500 mg PO BID #60 tab 10/01/21 Aspirin 81 mg PO DAILY #30 tab 10/01/21 Cholecalciferol [Vitamin D3 (25 50 mcg PO DAILY #60 tablet 10/01/21 Mcg = 1000 Iu)] Famotidine [Pepcid] 20 mg PO DAILY #30 tab 10/01/21 Metoprolol Succinate (ER) [Toprol 25 mg PO DAILY #30 tablet 10/01/21 XL] Zinc Sulfate [Orazinc] 220 mg PO DAILY #30 cap 10/01/21 guaiFENesin [Mucinex] 600 mg PO Q12HR 10 Days #20 tablet 10/01/21 Allergies Allergy/AdvReac Type Severity Reaction Status Date / Time No Known Allergies Allergy Verified 10/08/21 17:12 Review of Systems ROS Statement: Those systems with pertinent positive or pertinent negative responses have been documented in the HPI. ROS Other: All systems not noted in ROS Statement are negative. Past Medical History Past Medical History: Cancer, COPD Additional Past Medical History / Comment(s): Lymphoma History of Any Multi-Drug Resistant Organisms: None Reported Past Surgical History: Appendectomy Additional Past Surgical History / Comment(s): Bone marrow biopsy, several lymph node biopsies, colonoscopy, R breast benign biopsy, bilateral cataract removal/lens implants. Past Anesthesia/Blood Transfusion Reactions: No Reported Reaction, Motion Sickness Past Psychological History: No Psychological Hx Reported Smoking Status: Current every day smoker Past Alcohol Use History: None Reported Past Drug Use History: None Reported - Past Family History Father Family Medical History: Respiratory Disorder Additional Family Medical History / Comment(s): Father from pulmonary fibrosis. Mother Family Medical History: No Reported History Additional Family Medical History / Comment(s): Mother is healthy and 89yrs old. General Exam Limitations: no limitations General appearance: alert, in distress Head exam: Present: atraumatic, normocephalic Eye exam: Present: normal appearance, PERRL ENT exam: Present: normal exam Neck exam: Present: normal inspection. Absent: tenderness, meningismus Respiratory exam: Present: respiratory distress, wheezes, decreased breath sounds, prolonged expiratory Cardiovascular Exam: Present: normal rhythm, tachycardia GI/Abdominal exam: Present: soft. Absent: distended, tenderness, guarding Extremities exam: Present: normal inspection, normal capillary refill. Absent: pedal edema, calf tenderness Neurological exam: Present: alert. Absent: motor sensory deficit Psychiatric exam: Present: anxious Skin exam: Present: warm, dry, intact. Absent: diaphoretic Course Vital Signs 10/08/21 10/08/21 10/08/21 15:40 16:00 16:14 Temperature 98.0 F Pulse Rate 136 H 128 H Respiratory 40 H 38 H 32 H Rate Blood Pressure 129/89 124/88 O2 Sat by Pulse 95 99 Oximetry EKG Findings - EKG Comments: EKG Findings:: EKG: Sinus tachycardia, tremor artifact, rate of 129, OH interval 120, QRS duration 64, QTC [address] segment elevation. Medical Decision Making - Medical Decision Making 66-year-old female presenting in respiratory distress. Hypoxic. Patient has history of COPD, recent diagnosis of coronavirus pneumonia requiring prolonged admission. She's been home for approximately one week. Patient placed on BiPAP immediately upon arrival with improvement in her work of breathing. She has normal white blood cell count, stable hemoglobin, mild hypokalemia 3.2. She has an elevated troponin which I suspect is from demand and hypoxia. This level will be trended. This level was elevated on previous admission. Additionally she does continue test positive for coronavirus. Chest x-ray showing bilateral pneumonia. Patient will be admitted to Dr. Diallo who is aware of the patient with pulmonology on consultation. - Lab Data Result diagrams: 10/08/21 16:03 10/08/21 16:03 Lab Results 10/08/21 10/08/21 10/08/21 Range/Units 16:03 16:03 16:03 WBC 8.6 (3.8-10.6) k/uL RBC 4.58 (3.80-5.40) m/uL Hgb 14.0 (11.4-16.0) gm/dL Hct 41.7 (34.0-46.0) % MCV 91.1 (80.0-100.0) fL MCH 30.5 (25.0-35.0) pg MCHC 33.5 (31.0-37.0) g/dL RDW 14.6 (11.5-15.5) % Plt Count 129 L (150-450) k/uL MPV 9.0 Neutrophils % 90 % Lymphocytes % 5 % Monocytes % 4 % Eosinophils % 0 % Basophils % 0 % Neutrophils # 7.8 H (1.3-7.7) k/uL Lymphocytes # 0.4 L (1.0-4.8) k/uL Monocytes # 0.3 (0-1.0) k/uL Eosinophils # 0.0 (0-0.7) k/uL Basophils # 0.0 (0-0.2) k/uL PT 10.9 (9.0-12.0) sec INR 1.0 (<1.2) APTT 65.2 H (22.0-30.0) sec Sodium 136 L (137-145) mmol/L Potassium 3.2 L (3.5-5.1) mmol/L Chloride 101 (98-107) mmol/L Carbon Dioxide 21 L (22-30) mmol/L Anion Gap 14 mmol/L BUN 14 (7-17) mg/dL Creatinine 0.56 (0.52-1.04) mg/dL Est GFR (CKD-EPI)AfAm >90 (>60 ml/min/1.73 sqM) Est GFR (CKD-EPI)NonAf >90 (>60 ml/min/1.73 sqM) Glucose 112 H (74-99) mg/dL Plasma Lactic Acid Darren (0.7-2.0) mmol/L Calcium 9.6 (8.4-10.2) mg/dL Magnesium 2.0 (1.6-2.3) mg/dL Total Bilirubin 0.5 (0.2-1.3) mg/dL AST 49 H (14-36) U/L ALT 18 (4-34) U/L Alkaline Phosphatase 85 (38-126) U/L Troponin I (0.000-0.034) ng/mL NT-Pro-B Natriuret Pep pg/mL Total Protein 6.7 (6.3-8.2) g/dL Albumin 3.4 L (3.5-5.0) g/dL Coronavirus (PCR) (Not Detectd) 10/08/21 10/08/21 10/08/21 Range/Units 16:03 16:03 16:03 WBC (3.8-10.6) k/uL RBC (3.80-5.40) m/uL Hgb (11.4-16.0) gm/dL Hct (34.0-46.0) % MCV (80.0-100.0) fL MCH (25.0-35.0) pg MCHC (31.0-37.0) g/dL RDW (11.5-15.5) % Plt Count (150-450) k/uL MPV Neutrophils % % Lymphocytes % % Monocytes % % Eosinophils % % Basophils % % Neutrophils # (1.3-7.7) k/uL Lymphocytes # (1.0-4.8) k/uL Monocytes # (0-1.0) k/uL Eosinophils # (0-0.7) k/uL Basophils # (0-0.2) k/uL PT (9.0-12.0) sec INR (<1.2) APTT (22.0-30.0) sec Sodium (137-145) mmol/L Potassium (3.5-5.1) mmol/L Chloride (98-107) mmol/L Carbon Dioxide (22-30) mmol/L Anion Gap mmol/L BUN (7-17) mg/dL Creatinine (0.52-1.04) mg/dL Est GFR (CKD-EPI)AfAm (>60 ml/min/1.73 sqM) Est GFR (CKD-EPI)NonAf (>60 ml/min/1.73 sqM) Glucose (74-99) mg/dL Plasma Lactic Acid Darren 1.5 (0.7-2.0) mmol/L Calcium (8.4-10.2) mg/dL Magnesium (1.6-2.3) mg/dL Total Bilirubin (0.2-1.3) mg/dL AST (14-36) U/L ALT (4-34) U/L Alkaline Phosphatase (38-126) U/L Troponin I 0.151 H* (0.000-0.034) ng/mL NT-Pro-B Natriuret Pep 1010 pg/mL Total Protein (6.3-8.2) g/dL Albumin (3.5-5.0) g/dL Coronavirus (PCR) (Not Detectd) 10/08/21 Range/Units 16:42 WBC (3.8-10.6) k/uL RBC (3.80-5.40) m/uL Hgb (11.4-16.0) gm/dL Hct (34.0-46.0) % MCV (80.0-100.0) fL MCH (25.0-35.0) pg MCHC (31.0-37.0) g/dL RDW (11.5-15.5) % Plt Count (150-450) k/uL MPV Neutrophils % % Lymphocytes % % Monocytes % % Eosinophils % % Basophils % % Neutrophils # (1.3-7.7) k/uL Lymphocytes # (1.0-4.8) k/uL Monocytes # (0-1.0) k/uL Eosinophils # (0-0.7) k/uL Basophils # (0-0.2) k/uL PT (9.0-12.0) sec INR (<1.2) APTT (22.0-30.0) sec Sodium (137-145) mmol/L Potassium (3.5-5.1) mmol/L Chloride (98-107) mmol/L Carbon Dioxide (22-30) mmol/L Anion Gap mmol/L BUN (7-17) mg/dL Creatinine (0.52-1.04) mg/dL Est GFR (CKD-EPI)AfAm (>60 ml/min/1.73 sqM) Est GFR (CKD-EPI)NonAf (>60 ml/min/1.73 sqM) Glucose (74-99) mg/dL Plasma Lactic Acid Darren (0.7-2.0) mmol/L Calcium (8.4-10.2) mg/dL Magnesium (1.6-2.3) mg/dL Total Bilirubin (0.2-1.3) mg/dL AST (14-36) U/L ALT (4-34) U/L Alkaline Phosphatase (38-126) U/L Troponin I (0.000-0.034) ng/mL NT-Pro-B Natriuret Pep pg/mL Total Protein (6.3-8.2) g/dL Albumin (3.5-5.0) g/dL Coronavirus (PCR) Detected A (Not Detectd) Critical Care Time Critical Care Time: Yes Total Critical Care Time: 35 Disposition Clinical Impression: COVID, Acute exacerbation of chronic obstructive pulmonary disease Disposition: ADMITTED IP TO THIS HOSP Condition: Serious Is patient prescribed a controlled substance at d/c from ED?: No Referrals: Jose Hernández DO [Primary Care Provider] - 1-2 days Decision to Admit Reason: Admit from EC Decision Date: 10/08/21 Decision Time: 17:29
[2021-10-08] MEDS ORDERED: SODIUM CHLORIDE 0.9% 500 ML 500 ML IV ONE (15:55)
[2021-10-08] MEDS ORDERED: LORazepam 2 MG/ML INJ IV STA (15:56)
[2021-10-08 16:15] LABS: Basophils % (A) 0 %; Eosinophils % (A) 0 %; HCT 41.7 % (34.0-46.0); Lymphocytes # (A) 0.4 k/uL (1.0-4.8); Lymphocytes % (A) 5 %; MCH 30.5 pg (25.0-35.0); MCHC 33.5 g/dL (31.0-37.0); MCV 91.1 fL (80.0-100.0); Monocytes # (A) 0.3 k/uL (0-1.0); Monocytes % (A) 4 %; Neutrophils # (A) 7.8 k/uL (1.3-7.7); Neutrophils % (A) 90 %; Platelet Count 129 k/uL (150-450); RBC 4.58 m/uL (3.80-5.40); RDW 14.6 % (11.5-15.5); WBC 8.6 k/uL (3.8-10.6)
--- NOTE | 2021-10-08 16:18 | XR ---
EXAMINATION TYPE: XR chest 1V portable DATE OF EXAM: 10/08/2021 COMPARISON: Chest x-ray 10 days ago. CTA chest 15 days ago. HISTORY: Difficulty in breathing. TECHNIQUE: Single AP portable frontal upright view of the chest is obtained. FINDINGS: Stable left subclavian Mediport catheter. Osseous structures remain demineralized. Backgrou nd chronic emphysematous and pulmonary fibrotic change with new bilateral mid to lower lung multifoca l opacities. Cardiac silhouette size remains within normal limits. IMPRESSION: Suspect covid-19 infection on background chronic emphysematous and pulmonary fibrotic c hanges. Correlate clinically.
[2021-10-08 16:25] LABS: ALT 18 U/L (4-34); AST 49 U/L (14-36); African American GFR (CKD) >90 (>60 ml/min/1.73 sqM); Albumin 3.4 g/dL (3.5-5.0); Alkaline Phosphatase 85 U/L (38-126); Anion Gap 14 mmol/L; Blood Urea Nitrogen 14 mg/dL (7-17); Calcium 9.6 mg/dL (8.4-10.2); Carbon Dioxide 21 mmol/L (22-30); Chloride 101 mmol/L (98-107); Glucose 112 mg/dL (74-99); Non-African American GFR(CKD) >90 (>60 ml/min/1.73 sqM); Potassium 3.2 mmol/L (3.5-5.1); Sodium 136 mmol/L (137-145); Total Bilirubin 0.5 mg/dL (0.2-1.3); Total Protein 6.7 g/dL (6.3-8.2)
[2021-10-08 16:31] LABS: Prothrombin Time 10.9 sec (9.0-12.0)
[2021-10-08] MEDS ORDERED: ASPIRIN 325 MG TAB PO STA (16:45)
[2021-10-08 17:02] LABS: Partial Thromboplastin Time 65.2 sec (22.0-30.0)
[2021-10-08] MEDS ORDERED: IPRATROPIUM-ALBUTEROL 3 ML NEB INHALATION PRN (17:25)
[2021-10-08] MEDS ORDERED: cefTRIAXone IN SWFI 1,000 MG/10 ML SYRINGE IVP STA (17:27)
[2021-10-08] MEDS ORDERED: AZITHROMYCIN 500 MG in SODIUM CHLORIDE 0.9% 250 ML IVPB STA (17:27)
[2021-10-08] MEDS: MAGNESIUM SULFATE-D5W PMX 1 GM in DEXTROSE/WATER 1 100ML.BAG IVPB SCH ×2 (17:48→19:04)
[2021-10-08] MEDS ORDERED: IPRATROPIUM-ALBUTEROL 3 ML NEB INHALATION SCH (20:00)
[2021-10-08] MEDS ORDERED: TIOTROPIUM 2.5 MCG INHALER INHALATION SCH (20:00)
[2021-10-08] MEDS: ALBUTEROL HFA INHALER INHALATION SCH (20:48)
[2021-10-09] MEDS: methylPREDNISolone SOD SUCCI 125 MG/2 ML VIAL IV SCH ×5 (00:02→23:59)
[2021-10-09] MEDS: SODIUM CHLORIDE 0.9% 1,000 ML IV SCH ×2 (00:03→06:15)
[2021-10-09 06:24] LABS: Glucose,Whole Blood 143 mg/dL (75-99)
[2021-10-09] MEDS ORDERED: guaiFENesin 600 MG TABLET.ER PO PRN (07:01)
[2021-10-09] MEDS ORDERED: Magnesium Replacement Protocol 1 EACH MISC MISCELLANE PRN (07:05)
[2021-10-09] MEDS ORDERED: Potassium Replacement Protocol 1 EACH MISC MISCELLANE PRN (07:05)
[2021-10-09] MEDS: CHOLECALCIFEROL 25 MCG (1000 IU) TABLET PO SCH (08:36)
[2021-10-09] MEDS: ASPIRIN 81 MG PO SCH (08:36)
[2021-10-09] MEDS: ENOXAPARIN 40 MG/0.4 ML SYRINGE SQ SCH (08:36)
[2021-10-09] MEDS: FAMOTIDINE 20 MG TAB PO SCH (08:37)
[2021-10-09] MEDS: ASCORBIC ACID 500 MG TAB PO SCH ×2 (08:37→20:55)
[2021-10-09] MEDS: METOPROLOL SUCCINATE (ER) 25 MG TAB.ER.24H PO SCH (08:37)
[2021-10-09] MEDS: ZINC SULFATE 220 MG CAP PO SCH (08:37)
[2021-10-09] MEDS: ALBUTEROL HFA INHALER INHALATION SCH ×4 (09:02→19:22)
--- NOTE | 2021-10-09 09:31 | XR ---
EXAMINATION TYPE: XR chest 1V DATE OF EXAM: 10/09/2021 COMPARISON: Chest x-ray 10/08/2021 HISTORY: Shortness of breath TECHNIQUE: Single frontal view of the chest is obtained. FINDINGS: There is likely underlying emphysema. Bilateral airspace disease, prominence interstitium again noted. Cardiac mediastinal silhouette is stable. There is a port in the left pectoral region, c atheter is overlying superior vena cava. Patient is rotated. No evident pneumothorax or pleural effus ion. Cardiac mediastinal silhouette is likely stable. There are overlying artifacts, patient is rotat ed. IMPRESSION: Correlate for pneumonia, there is underlying emphysema
--- NOTE | 2021-10-09 10:48 | P.CRDCN ---
History of Present Illness History of present illness: This is a 66-year-old female patient with a past medical history significant for chronic obstructive pulmonary disease, history of lymphoma who was admitted to the hospital with COVID-19 infection. She used to follow in the office with Dr. Mauricio in 2019. We are consulted for elevated troponin. The patient presented with symptoms of increasing shortness of breath associated with cough. She is positive for COVID-19 infection. She was diagnosed was COVID-19 pneumonia. She was recently discharged from the hospital on 10/01/2021 with covid-19 pneumonia. At home EMS was called for worsening dyspnea and generalized weakness. Patient was found to be hypoxic SpO2 in 70s on 4L nasal cannula. She was placed on a CPAP and transported to the hospital. Patient denies any chest pain, lighthead edness, dizziness, nausea or vomiting. She denies history of CAD, CT, Stroke or Diabetes. Last admission,Cardiology was consulted for similar mildly elevated troponin. Echocardiogram completed 09/30/2021 revealing ejection fraction 60-65%, mild tricuspid regurgitation, no evidence of pericardial effusion. DIAGNOSTICS EKG reveals sinus tachycardia HR 129, non-specific ST-T wave abnormalities. P rior EKG with similar findings Telemetry tracings indicate sinus rhythm HR 60s-70s Chest xray suspect covid-19 pneumonia Laboratory reviewed, troponin 0.15 0.08, sodium 136, potassium 3.2, BUN 14, serum creatinine 0.5, magnesium 2.0, proBNP 1010, COVID-19 19 PCR positive, WBC 8.6, hemoglobin 14, platelets 19 Current home cardiac medications include aspirin 80 mg daily, metoprolol succinate 25 mg daily REVIEW OF SYSTEMS At the time of my exam: CONSTITUTIONAL: Denies fever +chills. +Generalized weakness CARDIOVASCULAR: +shortness of breath Denies chest pain, orthopnea, PND or palpitations. RESPIRATORY: +cough. GASTROINTESTINAL: Denies abdominal pain, diarrhea, constipation, nausea or v omiting. MUSCULOSKELETAL: Denies myalgias. NEUROLOGIC: Denies numbness, tingling, headacbe or weakness. ENDOCRINE: Denies fatigue, weight change, polydipsia or polyurina. GENITOURINARY: Denies burning, hematuria or urgency with micturation. HEMATOLOGIC: Denies history of anemia or bleeding. PHYSICAL EXAMINATION Blood pressure 106/70, heart rate 70, afebrile, oxygen saturation is 92% on BiPAP CONSTITUTIONAL: Short of breath HEENT: Head is normocephalic. Pupils are equal, round. Sclerae anicteric. No JVD. CHEST EXAMINATION: No chest wall tenderness is noted on palpation or with deep breathing. HEART EXAMINATION: Regular rate and rhythm. S1, S2 heard. No murmurs, gallops or rub. ABDOMEN: Soft, nontender. EXTREMITIES: no lower extremity edema and no calf tenderness. NEUROLOGIC EXAMINATION: Patient is awake, alert and oriented x3. ASSESSMENT Elevated troponin, likely type 2 event due to hypoxemia and supply and demand mismatch Covid-19 Pneumonia Sinus tachycardia, improved. COPD History of lymphoma PLAN Elevated troponin not indicative of acute coronary syndrome, likely related to supply and demand mismatch. Continue aspirin and metoprolol succinate. No need to repeat echocardiogram with one completed on 09/30/21. Ongoing medical management per primary and pulmonary. We will sign off at this time. Please reach out with any further questions or concerns. the patient follow up on an outpatient basis with Dr. Mauricio to undergo stress testing when she is recovered from Covid. Nurse Practitioner note has been reviewed, I agree with a documented findings and plan of care. Patient was seen and examined. Past Medical History Past Medical History: Cancer, COPD Additional Past Medical History / Comment(s): Lymphoma History of Any Multi-Drug Resistant Organisms: None Reported Past Surgical History: Appendectomy Additional Past Surgical History / Comment(s): Bone marrow biopsy, several lymph node biopsies, colonoscopy, R breast benign biopsy, bilateral cataract removal/lens implants. Past Anesthesia/Blood Transfusion Reactions: Motion Sickness Past Psychological History: No Psychological Hx Reported Additional Psychological History / Comment(s): Pt resides with her spouse Smoking Status: Former smoker Past Alcohol Use History: None Reported Additional Past Alcohol Use History / Comment(s): states patient is a smoker but has not smoked in the last couple months due to hospitalizations . Past Drug Use History: None Reported - Past Family History Father Family Medical History: Respiratory Disorder Additional Family Medical History / Comment(s): Father from pulmonary fibrosis. Mother Family Medical History: No Reported History Additional Family Medical History / Comment(s): Mother is healthy and 89yrs old. Medications and Allergies Home Medications Medication Instructions Recorded Confirmed Type Fluticasone/Vilanterol [Breo 1 puff INHALATION RT-BID 09/23/21 10/08/21 History Ellipta 200-25 Mcg Inhaler] Tiotropium 18 Mcg/Puff [Spiriva] 2 puff INHALATION RT-DAILY 09/23/21 10/08/21 History ALPRAZolam [Xanax] 0.25 mg PO BID PRN 2 Days #4 tab 10/01/21 10/08/21 Rx Ascorbic Acid [Vitamin C] 500 mg PO BID #60 tab 10/01/21 10/08/21 Rx Aspirin 81 mg PO DAILY #30 tab 10/01/21 10/08/21 Rx Cholecalciferol [Vitamin D3 (25 50 mcg PO DAILY #60 tablet 10/01/21 10/08/21 Rx Mcg = 1000 Iu)] Famotidine [Pepcid] 20 mg PO DAILY #30 tab 10/01/21 10/08/21 Rx Metoprolol Succinate (ER) [Toprol 25 mg PO DAILY #30 tablet 10/01/21 10/08/21 Rx XL] Zinc Sulfate [Orazinc] 220 mg PO DAILY #30 cap 10/01/21 10/08/21 Rx guaiFENesin [Mucinex] 600 mg PO Q12HR 10 Days #20 tablet 10/01/21 10/08/21 Rx Allergies Allergy/AdvReac Type Severity Reaction Status Date / Time No Known Allergies Allergy Verified 10/08/21 17:12 Physical Exam Vitals: Vital Signs Temp Pulse Pulse Resp BP BP Pulse Ox 10/09/21 09:08 92 L 10/09/21 08:00 97.9 F 70 24 106/70 96 10/09/21 04:33 70 28 H 110/74 92 L 10/09/21 00:00 97.5 F L 74 27 H 92/58 95 10/08/21 23:05 97.6 F 84 26 H 92/64 93 L 10/08/21 22:00 96.9 F L 85 22 98/63 94 L 10/08/21 19:01 101 H 18 111/83 96 10/08/21 16:14 128 H 32 H 124/88 99 10/08/21 16:00 38 H 10/08/21 15:40 98.0 F 136 H 40 H 129/89 95 Intake and Output 10/08/21 10/09/21 10/09/21 22:59 06:59 14:59 Intake Total 375 Output Total 800 Balance -425 Intake: Intake, IV Titration 375 Amount Sodium Chloride 0.9% 1, 375 000 ml @ 75 mls/hr IV . [id number] [facility] Rx#:[id number] Output: Urine 800 Straight 800 Other: Voiding Method Diaper Diaper Weight 71.668 kg Results 10/08/21 16:03 10/08/21 16:03 Cardiac Enzymes 10/08/21 10/08/21 10/08/21 Range/Units 16:03 16:03 23:09 AST 49 H (14-36) U/L Troponin I 0.151 H* 0.084 H* (0.000-0.034) ng/mL Coagulation 10/08/21 Range/Units 16:03 PT 10.9 (9.0-12.0) sec APTT 65.2 H (22.0-30.0) sec CBC 10/08/21 Range/Units 16:03 WBC 8.6 (3.8-10.6) k/uL RBC 4.58 (3.80-5.40) m/uL Hgb 14.0 (11.4-16.0) gm/dL Hct 41.7 (34.0-46.0) % Plt Count 129 L (150-450) k/uL Comprehensive Metabolic Panel 10/08/21 Range/Units 16:03 Sodium 136 L (137-145) mmol/L Potassium 3.2 L (3.5-5.1) mmol/L Chloride 101 (98-107) mmol/L Carbon Dioxide 21 L (22-30) mmol/L BUN 14 (7-17) mg/dL Creatinine 0.56 (0.52-1.04) mg/dL Glucose 112 H (74-99) mg/dL Calcium 9.6 (8.4-10.2) mg/dL AST 49 H (14-36) U/L ALT 18 (4-34) U/L Alkaline Phosphatase 85 (38-126) U/L Total Protein 6.7 (6.3-8.2) g/dL Albumin 3.4 L (3.5-5.0) g/dL Current Medications Generic Name Dose Route Start Last Admin Trade Name Freq PRN Reason Stop Dose Admin Albuterol Sulfate 2 puff 10/08/21 20:00 10/09/21 09:02 Albuterol Hfa Inhaler INHALATION 2 puff RT-QID ALEXANDRE Administration Alprazolam 0.25 mg 10/09/21 07:01 Alprazolam 0.25 Mg Tab PO BID PRN Agitation or Acute Anxiety Ascorbic Acid 500 mg 10/09/21 09:00 10/09/21 08:37 Ascorbic Acid 500 Mg Tab PO 500 mg BID ALEXANDRE Administration Aspirin 81 mg 10/09/21 09:00 10/09/21 08:36 Aspirin 81 Mg PO 81 mg DAILY ALEXANDRE Administration Cholecalciferol 50 mcg 10/09/21 09:00 10/09/21 08:36 Cholecalciferol 25 Mcg (1000 Iu) Tablet PO 50 mcg DAILY ALEXANDRE Administration Enoxaparin Sodium 40 mg 10/09/21 09:00 10/09/21 08:36 Enoxaparin 40 Mg/0.4 Ml Syringe SQ 40 mg DAILY ALEXANDRE Administration Famotidine 20 mg 10/09/21 09:00 10/09/21 08:37 Famotidine 20 Mg Tab PO 20 mg DAILY ALEXANDRE Administration Guaifenesin 600 mg 10/09/21 07:01 Guaifenesin 600 Mg Tablet.Er PO Q12HR PRN Cough Sodium Chloride 1,000 mls @ 75 mls/hr 10/08/21 17:30 10/09/21 06:15 Saline 0.9% IV 75 mls/hr .[id number] ALEXANDRE Administration Methylprednisolone Sodium Succinate 60 mg 10/09/21 00:00 10/09/21 06:15 Methylprednisolone Sod Succi 125 Mg/2 Ml Vial IV 60 mg Q6HR ALEXANDRE Administration Metoprolol Succinate 25 mg 10/09/21 09:00 10/09/21 08:37 Metoprolol Succinate (Er) 25 Mg Tab.Er.24h PO 25 mg DAILY ALEXANDRE Administration Miscellaneous Information 1 each 10/09/21 07:05 Potassium Replacement Protocol 1 Each Misc MISCELLANE DAILY PRN Per Protocol Protocol Miscellaneous Information 1 each 10/09/21 07:05 Magnesium Replacement Protocol 1 Each Misc MISCELLANE DAILY PRN Per Protocol Protocol Tiotropium Mize 2 puff 10/09/21 08:00 Tiotropium 2.5 Mcg Inhaler INHALATION RT-DAILY ALEXANDRE Zinc Sulfate 220 mg 10/09/21 09:00 10/09/21 08:37 Zinc Sulfate 220 Mg Cap PO 220 mg DAILY ALEXANDRE Administration Intake and Output 10/08/21 10/09/21 10/09/21 22:59 06:59 14:59 Intake Total 375 Output Total 800 Balance -425 Intake: Intake, IV Titration 375 Amount Sodium Chloride 0.9% 1, 375 000 ml @ 75 mls/hr IV . [id number] A[facility]RE Rx#:[id number] Output: Urine 800 Straight 800 Other: Voiding Method Diaper Diaper Weight 71.668 kg 10/08/21 16:03 10/08/21 16:03
[2021-10-09 11:40] LABS: Glucose,Whole Blood 135 mg/dL (75-99)
--- NOTE | 2021-10-09 11:49 | P.HPIM ---
History of Present Illness This is a pleasant 66 years old female with past medical history of stage IV lymphoma that she follow up with oncologist at [facility], COPD, she was recently discharged from hospital 09/23-10/01 for Covid pneumonia, discharge or 3 L oxygen per minute. And chest pain resolved upon discharge. Presents with a breathing difficulties since morning needed and BiPAP upon admission. Patient information was limited because of patient dyspnea and being on BiPAP. She denies chest pain however her main concerns was the dyspnea. She denies abdominal pain or diarrhea. She is fully awake and oriented but she is in respiratory distress. Patient further information were limited because of patient severe respiratory status On admission she was tachycardic, tachypneic and hypoxic and she was placed on BiPAP and tolerated that well Labs reviewed, she has unremarkable CBC except for mild thrombocytopenia 129 and improved pain is 0.4. INR 1.0. Sodium 136 and potassium 3.2, rest of BMP is unremarkable, different enzymes is not significantly elevated, troponin is elevated at 0.15, proBNP is 1010 and coronavirus detected EKG showing sinus tachycardia at 129. Chest x-ray showing bilateral infiltrates suspicious for Covid 19 infection. Chest x-ray showed significantly worse compared to last admission Review of Systems CONSTITUTIONAL: No fever, no malaise, no fatigue. HEENT: No recent visual problems or hearing problems. Denied any sore throat. CARDIOVASCULAR: No orthopnea, PND, no palpitations, no syncope. PULMONARY: No chest wall tenderness, no hemoptysis. GASTROINTESTINAL: No diarrhea, no nausea, no vomiting, no abdominal pain. Normoactive bowel sounds. NEUROLOGICAL: No headaches, no weakness, no numbness. HEMATOLOGICAL: Denies any bleeding or petechiae. GENITOURINARY: Denies any burning micturition, frequency, or urgency. MUSCULOSKELETAL/RHEUMATOLOGICAL: Denies any joint pain, swelling, or any muscle pain. ENDOCRINE: Denies any polyuria or polydipsia. Past Medical History Past Medical History: Cancer, COPD Additional Past Medical History / Comment(s): Lymphoma History of Any Multi-Drug Resistant Organisms: None Reported Past Surgical History: Appendectomy Additional Past Surgical History / Comment(s): Bone marrow biopsy, several lymph node biopsies, colonoscopy, R breast benign biopsy, bilateral cataract re moval/lens implants. Past Anesthesia/Blood Transfusion Reactions: Motion Sickness Past Psychological History: No Psychological Hx Reported Additional Psychological History / Comment(s): Pt resides with her spouse Smoking Status: Former smoker Past Alcohol Use History: None Reported Additional Past Alcohol Use History / Comment(s): states patient is a smoker but has not smoked in the last couple months due to hospitalizations . Past Drug Use History: None Reported - Past Family History Father Family Medical History: Respiratory Disorder Additional Family Medical History / Comment(s): Father from pulmonary fibrosis. Mother Family Medical History: No Reported History Additional Family Medical History / Comment(s): Mother is healthy and 89yrs old. Medications and Allergies Home Medications Medication Instructions Recorded Confirmed Type Fluticasone/Vilanterol [Breo 1 puff INHALATION RT-BID 09/23/21 10/08/21 History Ellipta 200-25 Mcg Inhaler] Tiotropium 18 Mcg/Puff [Spiriva] 2 puff INHALATION RT-DAILY 09/23/21 10/08/21 History ALPRAZolam [Xanax] 0.25 mg PO BID PRN 2 Days #4 tab 10/01/21 10/08/21 Rx Ascorbic Acid [Vitamin C] 500 mg PO BID #60 tab 10/01/21 10/08/21 Rx Aspirin 81 mg PO DAILY #30 tab 10/01/21 10/08/21 Rx Cholecalciferol [Vitamin D3 (25 50 mcg PO DAILY #60 tablet 10/01/21 10/08/21 Rx Mcg = 1000 Iu)] Famotidine [Pepcid] 20 mg PO DAILY #30 tab 10/01/21 10/08/21 Rx Metoprolol Succinate (ER) [Toprol 25 mg PO DAILY #30 tablet 10/01/21 10/08/21 Rx XL] Zinc Sulfate [Orazinc] 220 mg PO DAILY #30 cap 10/01/21 10/08/21 Rx guaiFENesin [Mucinex] 600 mg PO Q12HR 10 Days #20 tablet 10/01/21 10/08/21 Rx Allergies Allergy/AdvReac Type Severity Reaction Status Date / Time No Known Allergies Allergy Verified 10/08/21 17:12 Physical Exam Vitals: Vital Signs Temp Pulse Pulse Resp BP BP Pulse Ox 10/08/21 23:05 97.6 F 84 26 H 92/64 93 L 10/08/21 22:00 96.9 F L 85 22 98/63 94 L 10/08/21 19:01 101 H 18 111/83 96 10/08/21 16:14 128 H 32 H 124/88 99 10/08/21 16:00 38 H 10/08/21 15:40 98.0 F 136 H 40 H 129/89 95 Intake and Output 10/08/21 10/08/21 10/09/21 14:59 22:59 06:59 Other: Weight 71.668 kg -GENERAL: The patient is alert and oriented x3, in moderate to severe acute respiratory distress. Well developed, well nourished. HEENT: Pupils are round and equally reacting to light. EOMI. No scleral icterus. No conjunctival pallor. Normocephalic, atraumatic. No pharyngeal erythema. No thyromegaly. CARDIOVASCULAR: S1 and S2 present. No murmurs, rubs, or gallops. -PULMONARY: Chest is clear to auscultation, no wheezing or crackles. Decreased air entry and bilateral crepitation ABDOMEN: Soft, nontender, nondistended, normoactive bowel sounds. No palpable organomegaly. MUSCULOSKELETAL: No joint swelling or deformity. EXTREMITIES: No cyanosis, clubbing, or pedal edema. NEUROLOGICAL: Gross neurological examination did not reveal any focal deficits. SKIN: No rashes. No petechiae Results CBC & Chem 7: 10/08/21 16:03 10/08/21 16:03 Labs: Abnormal Lab Results - Last 24 Hours (Table) 10/08/21 10/08/21 10/08/21 Range/Units 16:03 16:03 16:03 Plt Count 129 L (150-450) k/uL Neutrophils # 7.8 H (1.3-7.7) k/uL Lymphocytes # 0.4 L (1.0-4.8) k/uL APTT 65.2 H (22.0-30.0) sec Sodium 136 L (137-145) mmol/L Potassium 3.2 L (3.5-5.1) mmol/L Carbon Dioxide 21 L (22-30) mmol/L Glucose 112 H (74-99) mg/dL AST 49 H (14-36) U/L Troponin I (0.000-0.034) ng/mL Albumin 3.4 L (3.5-5.0) g/dL Coronavirus (PCR) (Not Detectd) 10/08/21 10/08/21 Range/Units 16:03 16:42 Plt Count (150-450) k/uL Neutrophils # (1.3-7.7) k/uL Lymphocytes # (1.0-4.8) k/uL APTT (22.0-30.0) sec Sodium (137-145) mmol/L Potassium (3.5-5.1) mmol/L Carbon Dioxide (22-30) mmol/L Glucose (74-99) mg/dL AST (14-36) U/L Troponin I 0.151 H* (0.000-0.034) ng/mL Albumin (3.5-5.0) g/dL Coronavirus (PCR) Detected A (Not Detectd) Thrombosis Risk Factor Assmnt - Choose All That Apply Any of the Below Risk Factors Present?: Yes Each Factor Represents 1 point: Abnormal pulmonary function (COPD), Obesity (BMI >25) Other Risk Factors: Yes Each Risk Factor Represents 2 Points: Age 61-74 years, Malignancy Thrombosis Risk Factor Assessment Total Risk Factor Score: 6 Thrombosis Risk Factor Assessment Level: High Risk Assessment and Plan Assessment: Bilateral Covid pneumonia Acute hypoxic respiratory failure Increased inflammatory markers Elevated troponin Stage IV lymphoma Plan: Bilateral Covid pneumonia and hypoxia Continue with vitamin C, vitamin D, and zinc. Continue with dexamethasone Pulmonary team consult Call cardiology consult Labs and medication were reviewed.. Continue same treatment. Continue with symptomatic treatment. Resume home medication. Monitor lytes and vitals. DVT and GI prophylaxis. Further recommendations as per clinical course of the patient DVT prophylaxis: Subcutaneous Lovenox GI Prophylaxis: Pepcid PT/OT: Pending Prognosis is guarded
[2021-10-09 12:18] LABS: Basophils % (A) 0 %; Eosinophils % (A) 0 %; HGB 12.7 gm/dL (11.4-16.0); Lymphocytes # (A) 0.2 k/uL (1.0-4.8); Lymphocytes % (A) 5 %; MCH 30.5 pg (25.0-35.0); MCHC 32.6 g/dL (31.0-37.0); MCV 93.6 fL (80.0-100.0); Mean Platelet Volume 9.2; Monocytes # (A) 0.1 k/uL (0-1.0); Monocytes % (A) 3 %; Neutrophils # (A) 3.4 k/uL (1.3-7.7); Neutrophils % (A) 91 %; Platelet Count 109 k/uL (150-450); RBC 4.17 m/uL (3.80-5.40); WBC 3.7 k/uL (3.8-10.6)
[2021-10-09 12:49] LABS: ALT 16 U/L (4-34); AST 40 U/L (14-36); African American GFR (CKD) >90 (>60 ml/min/1.73 sqM); Albumin 2.6 g/dL (3.5-5.0); Alkaline Phosphatase 70 U/L (38-126); Anion Gap 7 mmol/L; Blood Urea Nitrogen 18 mg/dL (7-17); Calcium 8.6 mg/dL (8.4-10.2); Carbon Dioxide 21 mmol/L (22-30); Chloride 110 mmol/L (98-107); Glucose 138 mg/dL (74-99); LDH 1315 U/L (313-618); Magnesium 2.2 mg/dL (1.6-2.3); Non-African American GFR(CKD) >90 (>60 ml/min/1.73 sqM); Potassium 3.8 mmol/L (3.5-5.1); Sodium 138 mmol/L (137-145); Total Bilirubin 0.3 mg/dL (0.2-1.3); Total Protein 5.1 g/dL (6.3-8.2)
[2021-10-09 13:04] LABS: C Reactive Protein 20.4 mg/dL (<1.0)
[2021-10-09] MEDS ORDERED: FUROSEMIDE 10 MG/ML 4 ML VIAL IV STA (14:07)
--- NOTE | 2021-10-09 14:07 | P.CNPUL ---
History of Present Illness Consult date: 10/09/21 Reason for consult: dyspnea, hypoxemia History of present illness: 66-year-old here patient with known history of advanced lymphoma, stage IV has been treated through oncology Center at [facility]. The patient also has advanced COPD as comorbid conditions. The patient was recently hospitalized for community related pneumonia. Our group was involved in her care. She was in the hospital between 09/23/2021 and 10/01/2021 and the patient was discharged home on 3 L of Oxymizer nasal cannula. During the course of her treatment, the patient received a combination of Decadron and Remdesivir. Ultimately the patient was discharged home. She was using a combination of Breo Ellipta and Spiriva regarding her COPD and she was using oxygen 3 L. As the patient came off the steroids, she became progressively more short of breath and over the past 24-48 hours she end up coming back to the hospital. Repeat COVID 19 testing was positive. Chest exit showed bilateral pulmonary infiltrates related to previous COVID 19 infection. Chest x-ray seemed to be significantly worse compared to her chest x-ray at the time of discharge. This may be progression of her COVID 19 pneumonia versus superinfection. ProBNP level is 1010 and the rest of the blood work shows a white cell count of 3.7 with a hemoglobin is 12.7 and a platelet count of 109. D-dimer was 1.66, BUN is at 80 with a creatinine of 0.3, sodium is 138, electrolytes were essentially within normal limits, troponins are 0.08-0.04 respectively, LDH 71,315, CRP level is at 20.4, TSH was 0.097 and LDH level was 1015. At this point in time, the patient is on 100% nonrebreather facemask. Her breathing seems to be labored even at rest. She was started on IV Solu-Medrol 60 mg every 6 hours. She is also on Lovenox 40 mg subcu for DVT prophylaxis. Review of Systems Constitutional: Reports daytime sleepiness, Reports fatigue, Reports lethargy, Reports poor appetite, Reports weakness Eyes: denies as per HPI, denies blurred vision, denies bulging eye, denies decreased vision, denies diplopia, denies discharge, denies dry eye, denies irritation, denies itching, denies pain, denies photophobia, denies loss of peripheral vision, denies loss of vision, denies tunnel vision/blind spots Ears: deny: decreased hearing, ear discharge, earache, tinnitus Ears, nose, mouth and throat: Reports as per HPI Breasts: absent: as per HPI, change in shape, gynecomastia, masses, nipple discharge, pain, skin changes, swelling Cardiovascular: Reports decreased exercise tolerance, Reports dyspnea on exertion Respiratory: Reports cough with sputum, Reports dyspnea Gastrointestinal: Reports as per HPI Genitourinary: Reports as per HPI Menstruation: Reports as per HPI Musculoskeletal: Reports as per HPI Musculoskeletal: absent: ankle pain, ankle stiffness, ankle swelling Integumentary: Reports as per HPI Neurological: Reports as per HPI, Reports weakness Psychiatric: Reports as per HPI Endocrine: Reports as per HPI, Reports fatigue Hematologic/Lymphatic: Reports as per HPI Allergic/Immunologic: Reports as per HPI Past Medical History Past Medical History: Cancer, COPD Additional Past Medical History / Comment(s): Lymphoma, COVID 19 pneumonia History of Any Multi-Drug Resistant Organisms: None Reported Past Surgical History: Appendectomy Additional Past Surgical History / Comment(s): Bone marrow biopsy, several lymph node biopsies, colonoscopy, R breast benign biopsy, bilateral cataract removal/lens implants. Past Anesthesia/Blood Transfusion Reactions: Motion Sickness Past Psychological History: No Psychological Hx Reported Additional Psychological History / Comment(s): Pt resides with her spouse Smoking Status: Former smoker Past Alcohol Use History: None Reported Additional Past Alcohol Use History / Comment(s): states patient is a smoker but has not smoked in the last couple months due to hospitalizations . Past Drug Use History: None Reported - Past Family History Father Family Medical History: Respiratory Disorder Additional Family Medical History / Comment(s): Father from pulmonary fibrosis. Mother Family Medical History: No Reported History Additional Family Medical History / Comment(s): Mother is healthy and 89yrs old. Medications and Allergies Home Medications Medication Instructions Recorded Confirmed Type Fluticasone/Vilanterol [Breo 1 puff INHALATION RT-BID 09/23/21 10/08/21 History Ellipta 200-25 Mcg Inhaler] Tiotropium 18 Mcg/Puff [Spiriva] 2 puff INHALATION RT-DAILY 09/23/21 10/08/21 History ALPRAZolam [Xanax] 0.25 mg PO BID PRN 2 Days #4 tab 10/01/21 10/08/21 Rx Ascorbic Acid [Vitamin C] 500 mg PO BID #60 tab 10/01/21 10/08/21 Rx Aspirin 81 mg PO DAILY #30 tab 10/01/21 10/08/21 Rx Cholecalciferol [Vitamin D3 (25 50 mcg PO DAILY #60 tablet 10/01/21 10/08/21 Rx Mcg = 1000 Iu)] Famotidine [Pepcid] 20 mg PO DAILY #30 tab 10/01/21 10/08/21 Rx Metoprolol Succinate (ER) [Toprol 25 mg PO DAILY #30 tablet 10/01/21 10/08/21 Rx XL] Zinc Sulfate [Orazinc] 220 mg PO DAILY #30 cap 10/01/21 10/08/21 Rx guaiFENesin [Mucinex] 600 mg PO Q12HR 10 Days #20 tablet 10/01/21 10/08/21 Rx Allergies Allergy/AdvReac Type Severity Reaction Status Date / Time No Known Allergies Allergy Verified 10/08/21 17:12 Physical Exam Vitals: Vital Signs Temp Pulse Pulse Resp BP BP Pulse Ox 10/09/21 12:00 98 F 74 22 114/74 83 L 10/09/21 09:08 92 L 10/09/21 08:00 97.9 F 70 24 106/70 96 10/09/21 04:33 70 28 H 110/74 92 L 10/09/21 00:00 97.5 F L 74 27 H 92/58 95 10/08/21 23:05 97.6 F 84 26 H 92/64 93 L 10/08/21 22:00 96.9 F L 85 22 98/63 94 L 10/08/21 19:01 101 H 18 111/83 96 10/08/21 16:14 128 H 32 H 124/88 99 10/08/21 16:00 38 H 10/08/21 15:40 98.0 F 136 H 40 H 129/89 95 Intake and Output 10/08/21 10/09/21 10/09/21 22:59 06:59 14:59 Intake Total 375 Output Total 800 Balance -425 Intake: Intake, IV Titration 375 Amount Sodium Chloride 0.9% 1, 375 000 ml @ 75 mls/hr IV . [id number] [facility] Rx#:[id number] Output: Urine 800 Straight 800 Other: Voiding Method Diaper Diaper Weight 71.668 kg -GENERAL: The patient is alert and oriented x3, in moderate to severe acute respiratory distress. Well developed, well nourished. The patient is currently on 100% on a beta facemasks. Lesher with of breath compared to yesterday and the breathing seems to be slightly less labored. Head exam was generally normal. There was no scleral icterus or corneal arcus. Mucous membranes were moist. HEENT: Pupils are round and equally reacting to light. EOMI. No scleral icterus. No conjunctival pallor. Normocephalic, atraumatic. No pharyngeal erythema. No thyromegaly. CARDIOVASCULAR: S1 and S2 present. No murmurs, rubs, or gallops. -PULMONARY: Chest is clear to auscultation, no wheezing or crackles. Decreased air entry and bilateral crepitation especially in lung bases bilaterally. ABDOMEN: Soft, nontender, nondistended, normoactive bowel sounds. No palpable organomegaly. MUSCULOSKELETAL: No joint swelling or deformity. EXTREMITIES: No cyanosis, clubbing, or pedal edema. NEUROLOGICAL: Gross neurological examination did not reveal any focal deficits. SKIN: No rashes. No petechiae Results - Laboratory Findings CBC and BMP: 10/09/21 11:55 10/09/21 11:55 PT/INR, D-dimer PT 10.9 sec (9.0-12.0) 10/08/21 16:03 INR 1.0 (<1.2) 10/08/21 16:03 D-Dimer 1.66 mg/L FEU (<0.60) H 10/09/21 11:55 Abnormal lab findings: Abnormal Labs 10/08/21 10/08/21 10/08/21 16:03 16:03 16:03 WBC Plt Count 129 L Neutrophils # 7.8 H Lymphocytes # 0.4 L APTT 65.2 H D-Dimer Sodium 136 L Potassium 3.2 L Chloride Carbon Dioxide 21 L BUN Creatinine Glucose 112 H POC Glucose (mg/dL) AST 49 H Lactate Dehydrogenase Troponin I C-Reactive Protein Total Protein Albumin 3.4 L TSH Coronavirus (PCR) 10/08/21 10/08/21 10/08/21 16:03 16:42 23:09 WBC Plt Count Neutrophils # Lymphocytes # APTT D-Dimer Sodium Potassium Chloride Carbon Dioxide BUN Creatinine Glucose POC Glucose (mg/dL) AST Lactate Dehydrogenase Troponin I 0.151 H* 0.084 H* C-Reactive Protein Total Protein Albumin TSH Coronavirus (PCR) Detected A 10/09/21 10/09/21 10/09/21 06:22 11:38 11:55 WBC Plt Count Neutrophils # Lymphocytes # APTT D-Dimer Sodium Potassium Chloride 110 H Carbon Dioxide 21 L BUN 18 H Creatinine 0.34 L Glucose 138 H POC Glucose (mg/dL) 143 H 135 H AST 40 H Lactate Dehydrogenase 1315 H Troponin I C-Reactive Protein 20.4 H Total Protein 5.1 L Albumin 2.6 L TSH 0.097 L Coronavirus (PCR) 10/09/21 10/09/21 10/09/21 11:55 11:55 11:55 WBC 3.7 L Plt Count 109 L Neutrophils # Lymphocytes # 0.2 L APTT D-Dimer 1.66 H Sodium Potassium Chloride Carbon Dioxide BUN Creatinine Glucose POC Glucose (mg/dL) AST Lactate Dehydrogenase Troponin I 0.044 H* C-Reactive Protein Total Protein Albumin TSH Coronavirus (PCR) - Diagnostic Findings Chest x-ray: image reviewed Assessment and Plan Plan: 1 acute on chronic hypoxic respiratory failure, likely secondary to progression of her underlying COVID 19 related pneumonia with worsening oxygenation and deve lopment of further hypoxemia. Patient is currently on 100% nonrebreather facemask. Possibility of superinfection is considered to be less likely although cannot be completely occluded. Doubt CHF/edema. 2 COVID 19 pneumonia, diagnosed originally on 09/22/2021 3 COPD with bilateral emphysematous changes based on a previous CAT scan of the chest and the patient is on a combination of Breo Ellipta and Spiriva on outpatient basis 4 mild elevation of inflammatory markers, awaiting pro-calcitonin levels 5 history of stage IV lymphoma 6 abnormal troponin, probably related to oxygen mismatch causing some troponin leak Plan It be florentino to proceed with a CAT scan of the chest to rule out pulmonary embolism. D-dimer is low. Nevertheless, due to her progression a CT angiogram should be able to help us to rule out possibility of pulmonary embolism and the same time progression of the pulmonary infiltrates Check pro-calcitonin level Agree on IV Solu-Medrol Cover the patient with Lovenox 40 mg subcu for the prophylaxis May to cover this patient with empiric antibiotics, recommend IV cefepime Give the patient does of Lasix 40 mg IV push and assess her response to diuretics Keep 100% on a beta facemasks for now Kept on the IV fluids to KVO We'll continue to follow.
[2021-10-09 16:58] LABS: Glucose,Whole Blood 146 mg/dL (75-99)
[2021-10-09] MEDS: CEFEPIME 2 GM in SODIUM CHLORIDE 0.9% 100 ML IVPB SCH ×2 (17:06→23:59)
[2021-10-09 20:26] LABS: Glucose,Whole Blood 177 mg/dL (75-99)
[2021-10-09] MEDS: TIOTROPIUM 2.5 MCG INHALER INHALATION SCH (20:41)
[2021-10-09] MEDS: ALPRAZolam 0.25 MG TAB PO PRN (20:55)
[2021-10-10] MEDS: methylPREDNISolone SOD SUCCI 125 MG/2 ML VIAL IV SCH ×4 (05:07→23:06)
[2021-10-10 06:18] LABS: Glucose,Whole Blood 185 mg/dL (75-99)
[2021-10-10] MEDS: SODIUM CHLORIDE 0.9% 1,000 ML IV SCH ×2 (06:25→20:48)
[2021-10-10] MEDS: ALBUTEROL HFA INHALER INHALATION SCH ×4 (09:10→20:21)
[2021-10-10] MEDS: CHOLECALCIFEROL 25 MCG (1000 IU) TABLET PO SCH (10:08)
[2021-10-10] MEDS: FAMOTIDINE 20 MG TAB PO SCH (10:10)
[2021-10-10] MEDS: ASCORBIC ACID 500 MG TAB PO SCH ×2 (10:10→20:40)
[2021-10-10] MEDS: CEFEPIME 2 GM in SODIUM CHLORIDE 0.9% 100 ML IVPB SCH ×3 (10:10→23:06)
[2021-10-10] MEDS: ENOXAPARIN 40 MG/0.4 ML SYRINGE SQ SCH (10:10)
[2021-10-10] MEDS: METOPROLOL SUCCINATE (ER) 25 MG TAB.ER.24H PO SCH (10:10)
[2021-10-10] MEDS: ZINC SULFATE 220 MG CAP PO SCH (10:10)
[2021-10-10] MEDS: ASPIRIN 81 MG PO SCH (10:10)
--- NOTE | 2021-10-10 11:18 | P.PN ---
Subjective Progress Note Date: 10/10/21 Principal diagnosis: COVID-19 pneumonia 66-year-old here patient with known history of advanced lymphoma, stage IV has been treated through oncology Center at [facility]. The patient also has advanced COPD as comorbid conditions. The patient was recently hospita liz for community related pneumonia. Our group was involved in her care. She was in the hospital between 09/23/2021 and 10/01/2021 and the patient was discharged home on 3 L of Oxymizer nasal cannula. During the course of her treatment, the patient received a combination of Decadron and Remdesivir. Ultimately the patient was discharged home. She was using a combination of Breo Ellipta and Spiriva regarding her COPD and she was using oxygen 3 L. As the patient came off the steroids, she became progressively more short of breath and over the past 24-48 hours she end up coming back to the hospital. Repeat COVID 19 testing was positive. Chest exit showed bilateral pulmonary infiltrates related to previous COVID 19 infection. Chest x-ray seemed to be significantly worse compared to her chest x-ray at the time of discharge. This may be progression of her COVID 19 pneumonia versus superinfection. ProBNP level is 1010 and the rest of the blood work shows a white cell count of 3.7 with a hemoglobin is 12.7 and a platelet count of 109. D-dimer was 1.66, BUN is at 80 with a creatinine of 0.3, sodium is 138, electrolytes were essentially within normal limits, troponins are 0.08-0.04 respectively, LDH 71,315, CRP level is at 20.4, TSH was 0.097 and LDH level was 1015. At this point in time, the patient is on 100% nonrebreather facemask. Her breathing seems to be labored even at rest. She was started on IV Solu-Medrol 60 mg every 6 hours. She is also on Lovenox 40 mg subcu for DVT prophylaxis. The patient is seen today 10/10/2021 in follow-up on the selective care unit. She is currently resting fairly comfortably in bed. She is on BiPAP 15/6 at 75% FiO2. She's 0.9 at 20 ML's per hour. Glucose 185. Magnesium 2.1. She remains on antibiotics in the form of cefepime. Continued on Lovenox, IV Solu-Medrol, vitamin supplements. She is continuing on Symbicort, Spiriva, albuterol. Objective - Vital Signs Vital signs: Vital Signs Temp 97.2 F L 10/10/21 08:00 Pulse 99 10/10/21 08:00 Resp 20 10/10/21 08:00 BP 135/81 10/10/21 08:00 Pulse Ox 92 L 10/10/21 08:00 Intake & Output 10/09/21 10/10/21 10/10/21 18:59 06:59 18:59 Intake Total 120 375 260 Balance 120 375 260 Intake: Intake, IV Titration 375 Amount Sodium Chloride 0.9% 1, 375 000 ml @ 20 mls/hr IV . Q24H [facility] Rx#:[id number] Oral 120 260 Other: Voiding Method Diaper Diaper # Voids 1 - Exam GENERAL EXAM: Alert, frail 66-year-old female, on BiPAP 15/6 and 75% FiO2, fairly comfortable in no apparent distress. HEAD: Normocephalic. EYES: Normal reaction of pupils, equal size. NOSE: Clear with pink turbinates. THROAT: No erythema or exudates. NECK: No masses, no JVD. CHEST: No chest wall deformity. Mediport in place. LUNGS: Equal air entry with coarse crackles in the posterior bases. CVS: S1 and S2 normal with no audible murmur, regular rhythm. ABDOMEN: No hepatosplenomegaly, normal bowel sounds, no guarding or rigidity. SPINE: No scoliosis or deformity SKIN: No rashes CENTRAL NERVOUS SYSTEM: No focal deficits, tone is normal in all 4 extremities. EXTREMITIES: There is no peripheral edema. No clubbing, no cyanosis. Peripheral pulses are intact. - Labs CBC & Chem 7: 10/09/21 11:55 10/09/21 11:55 Labs: Abnormal Lab Results - Last 24 Hours (Table) 10/09/21 10/09/21 10/09/21 Range/Units 11:38 11:55 11:55 WBC 3.7 L (3.8-10.6) k/uL Plt Count 109 L (150-450) k/uL Lymphocytes # 0.2 L (1.0-4.8) k/uL D-Dimer (<0.60) mg/L FEU Chloride 110 H (98-107) mmol/L Carbon Dioxide 21 L (22-30) mmol/L BUN 18 H (7-17) mg/dL Creatinine 0.34 L (0.52-1.04) mg/dL Glucose 138 H (74-99) mg/dL POC Glucose (mg/dL) 135 H (75-99) mg/dL AST 40 H (14-36) U/L Lactate Dehydrogenase 1315 H (313-618) U/L Troponin I (0.000-0.034) ng/mL C-Reactive Protein 20.4 H (<1.0) mg/dL Total Protein 5.1 L (6.3-8.2) g/dL Albumin 2.6 L (3.5-5.0) g/dL Procalcitonin (0.02-0.09) ng/mL TSH 0.097 L (0.465-4.680) mIU/L 10/09/21 10/09/21 10/09/21 Range/Units 11:55 11:55 11:55 WBC (3.8-10.6) k/uL Plt Count (150-450) k/uL Lymphocytes # (1.0-4.8) k/uL D-Dimer 1.66 H (<0.60) mg/L FEU Chloride (98-107) mmol/L Carbon Dioxide (22-30) mmol/L BUN (7-17) mg/dL Creatinine (0.52-1.04) mg/dL Glucose (74-99) mg/dL POC Glucose (mg/dL) (75-99) mg/dL AST (14-36) U/L Lactate Dehydrogenase (313-618) U/L Troponin I 0.044 H* (0.000-0.034) ng/mL C-Reactive Protein (<1.0) mg/dL Total Protein (6.3-8.2) g/dL Albumin (3.5-5.0) g/dL Procalcitonin 0.43 H (0.02-0.09) ng/mL TSH (0.465-4.680) mIU/L 10/09/21 10/09/21 10/10/21 Range/Units 16:50 20:23 06:16 WBC (3.8-10.6) k/uL Plt Count (150-450) k/uL Lymphocytes # (1.0-4.8) k/uL D-Dimer (<0.60) mg/L FEU Chloride (98-107) mmol/L Carbon Dioxide (22-30) mmol/L BUN (7-17) mg/dL Creatinine (0.52-1.04) mg/dL Glucose (74-99) mg/dL POC Glucose (mg/dL) 146 H 177 H 185 H (75-99) mg/dL AST (14-36) U/L Lactate Dehydrogenase (313-618) U/L Troponin I (0.000-0.034) ng/mL C-Reactive Protein (<1.0) mg/dL Total Protein (6.3-8.2) g/dL Albumin (3.5-5.0) g/dL Procalcitonin (0.02-0.09) ng/mL TSH (0.465-4.680) mIU/L Microbiology - Last 24 Hours (Table) 10/08/21 19:00 Blood Culture - Preliminary Blood No Growth after 24 hours 10/08/21 18:45 Blood Culture - Preliminary Blood No Growth after 24 hours Assessment and Plan Assessment: 1 Acute on chronic hypoxic respiratory failure, likely secondary to progression of her underlying COVID 19 related pneumonia with worsening oxygenation and development of further hypoxemia. Patient is currently on BiPAP 15/6 and 75% FiO2. Possibility of superinfection is considered to be less likely although cannot be completely occluded. Doubt CHF/edema. She is on cefepime. 2 COVID 19 pneumonia, diagnosed originally on 09/22/2021. 3 COPD with bilateral emphysematous changes based on a previous CAT scan of the chest and the patient is on a combination of Breo Ellipta and Spiriva on outpatient basis 4 Mild elevation of inflammatory markers, awaiting pro-calcitonin levels 5 History of stage IV lymphoma 6 Abnormal troponin, probably related to oxygen mismatch causing some troponin leak Plan: The patient was seen and evaluated Currently on BiPAP 15/6 and 75% FiO2 FiO2 decreased to 60% Add Symbicort to go with Spiriva and albuterol On 3 L nasal cannula when off the BiPAP Will order CT angiogram to rule out pulmonary embolism Follow-up inflammatory markers in the a.m. Prognosis is guarded We will continue to follow I, the cosigning physician, performed a history & physical examination of the patient. Lungs sounds with crackles in the bilateral bases. Maintaining O2 saturations in the 90s on BiPAP 15/6 and 60% FiO2. I discussed the assessment and plan of care with my nurse practitioner, Kusum Blandon. I attest to the above note as dictated by her.
[2021-10-10 11:46] LABS: Glucose,Whole Blood 134 mg/dL (75-99)
--- NOTE | 2021-10-10 15:57 | CT ---
EXAMINATION TYPE: CT angio chest DATE OF EXAM: 10/10/2021 3:16 PM COMPARISON: 09/23/2021 HISTORY: Elevated d-dimer, covid. CT DLP: 233.4 mGycm Automated exposure control for dose reduction was used. CONTRAST: CTA scan of the thorax is performed with IV Contrast, patient injected with 60ml mL of Isovue 370, pu lmonary embolism protocol. . FINDINGS: LUNGS: Severe emphysematous changes are noted with bilateral areas of groundglass consolidation corre late for pneumonitis. Underlying bronchiectasis at the lung bases and centrally noted. Assessment for neoplasm limited with no obvious sizable mass identified. Pleural-based thickening seen. No pneumoth orax. No sizable pleural effusion. MEDIASTINUM: There is satisfactory enhancement of the pulmonary artery and its branches, there is no CT evidence for pulmonary embolism. There are no greater than 1 cm hilar or mediastinal lymph nodes. Atherosclerotic change of the aorta. Heart size is stable with no sizable pericardial effusion. Athe rosclerotic change of the coronary arteries. Mediport catheter again noted.. OTHER: Multinodular thyroid changes are seen. Hypertrophic and degenerative change of the spine with chronic appearing superior endplate compression fractures midthoracic spine is stable from previous. Arthropathy of the shoulders. Early for hepatic steatosis. IMPRESSION: 1. No diagnostic evidence of pulmonary embolism. 2. Severe emphysematous changes with diffuse bilateral groundglass infiltrates correlate for infectio us etiology, and diffuse bilateral pneumonitis. 3. Multinodular thyroid changes. 4. Coronary artery calcification. 5. Low attenuation of liver can be associated with hepatic steatosis correlate with liver function st udies.
[2021-10-10 16:35] LABS: Glucose,Whole Blood 139 mg/dL (75-99)
--- NOTE | 2021-10-10 18:26 | P.PN ---
Subjective This is a pleasant 66 years old female with past medical history of stage IV lymphoma that she follow up with oncologist at [facility], COPD, she was recently discharged from hospital 09/23-10/01 for Covid pneumonia, discharge or 3 L oxygen per minute. And chest pain resolved upon discharge. Presents with a breathing difficulties since morning needed and BiPAP upon admission. Patient information was limited because of patient dyspnea and being on BiPAP. She denies chest pain however her main concerns was the dyspnea. She denies abdominal pain or diarrhea. She is fully awake and oriented but she is in respiratory distress. Patient further information were limited because of patient severe respiratory status On admission she was tachycardic, tachypneic and hypoxic and she was placed on BiPAP and tolerated that well Labs reviewed, she has unremarkable CBC except for mild thrombocytopenia 129 and improved pain is 0.4. INR 1.0. Sodium 136 and potassium 3.2, rest of BMP is unremarkable, different enzymes is not significantly elevated, troponin is elevated at 0.15, proBNP is 1010 and coronavirus detected EKG showing sinus tachycardia at 129. Chest x-ray showing bilateral infiltrates suspicious for Covid 19 infection. C hest x-ray showed significantly worse compared to last admission 10/10/2021 Patient still saw on BiPAP most of the time however she is telling me she is taking it off and she will eat. She still on BiPAP but FiO2 is lowered to 30% which is improvement compared to yesterday. CTA of the chest showing no PE, bilateral pneumonia. Multinodular goiter and hepatic steatosis. However liver enzymes are not elevated. She remains on Solu-Medrol, status and cefepime as well as multiple vitamins. Objective - Vital Signs Vital signs: Vital Signs Temp 97.6 F 10/10/21 11:39 Pulse 103 H 10/10/21 11:39 Resp 20 10/10/21 11:39 BP 142/42 10/10/21 11:39 Pulse Ox 92 L 10/10/21 11:39 Intake & Output 10/09/21 10/10/21 10/10/21 18:59 06:59 18:59 Intake Total 120 375 260 Output Total 200 Balance 120 375 60 Intake: Intake, IV Titration 375 Amount Sodium Chloride 0.9% 1, 375 000 ml @ 20 mls/hr IV . Q24H [facility] Rx#:[id number] Oral 120 260 Output: Urine 200 Other: Voiding Method Diaper Diaper # Voids 1 # Bowel Movements 2 - Exam -GENERAL: The patient is alert and oriented x3, in moderate to severe acute respiratory distress. Well developed, well nourished. HEENT: Pupils are round and equally reacting to light. EOMI. No scleral icterus. No conjunctival pallor. Normocephalic, atraumatic. No pharyngeal erythema. No thyromegaly. CARDIOVASCULAR: S1 and S2 present. No murmurs, rubs, or gallops. -PULMONARY: Chest is clear to auscultation, no wheezing or crackles. Decreased air entry and bilateral crepitation ABDOMEN: Soft, nontender, nondistended, normoactive bowel sounds. No palpable organomegaly. MUSCULOSKELETAL: No joint swelling or deformity. EXTREMITIES: No cyanosis, clubbing, or pedal edema. NEUROLOGICAL: Gross neurological examination did not reveal any focal deficits. SKIN: No rashes. No petechiae - Labs CBC & Chem 7: 10/09/21 11:55 10/09/21 11:55 Labs: Abnormal Lab Results - Last 24 Hours (Table) 10/09/21 10/09/21 10/09/21 Range/Units 11:55 11:55 11:55 Chloride 110 H (98-107) mmol/L Carbon Dioxide 21 L (22-30) mmol/L BUN 18 H (7-17) mg/dL Creatinine 0.34 L (0.52-1.04) mg/dL Glucose 138 H (74-99) mg/dL POC Glucose (mg/dL) (75-99) mg/dL AST 40 H (14-36) U/L Lactate Dehydrogenase 1315 H (313-618) U/L Troponin I 0.044 H* (0.000-0.034) ng/mL C-Reactive Protein 20.4 H (<1.0) mg/dL Total Protein 5.1 L (6.3-8.2) g/dL Albumin 2.6 L (3.5-5.0) g/dL Procalcitonin 0.43 H (0.02-0.09) ng/mL TSH 0.097 L (0.465-4.680) mIU/L 10/09/21 10/09/21 10/10/21 Range/Units 16:50 20:23 06:16 Chloride (98-107) mmol/L Carbon Dioxide (22-30) mmol/L BUN (7-17) mg/dL Creatinine (0.52-1.04) mg/dL Glucose (74-99) mg/dL POC Glucose (mg/dL) 146 H 177 H 185 H (75-99) mg/dL AST (14-36) U/L Lactate Dehydrogenase (313-618) U/L Troponin I (0.000-0.034) ng/mL C-Reactive Protein (<1.0) mg/dL Total Protein (6.3-8.2) g/dL Albumin (3.5-5.0) g/dL Procalcitonin (0.02-0.09) ng/mL TSH (0.465-4.680) mIU/L 10/10/21 Range/Units 11:44 Chloride (98-107) mmol/L Carbon Dioxide (22-30) mmol/L BUN (7-17) mg/dL Creatinine (0.52-1.04) mg/dL Glucose (74-99) mg/dL POC Glucose (mg/dL) 134 H (75-99) mg/dL AST (14-36) U/L Lactate Dehydrogenase (313-618) U/L Troponin I (0.000-0.034) ng/mL C-Reactive Protein (<1.0) mg/dL Total Protein (6.3-8.2) g/dL Albumin (3.5-5.0) g/dL Procalcitonin (0.02-0.09) ng/mL TSH (0.465-4.680) mIU/L Microbiology - Last 24 Hours (Table) 10/08/21 19:00 Blood Culture - Preliminary Blood No Growth after 24 hours 10/08/21 18:45 Blood Culture - Preliminary Blood No Growth after 24 hours Assessment and Plan Assessment: Bilateral Covid pneumonia Acute hypoxic respiratory failure Increased inflammatory markers Elevated troponin Stage IV lymphoma Plan: Bilateral Covid pneumonia and hypoxia Continue with vitamin C, vitamin D, and zinc. Continue with dexamethasone Pulmonary team consult Call cardiology consult Labs and medication were reviewed.. Continue same treatment. Continue with symptomatic treatment. Resume home medication. Monitor lytes and vitals. DVT and GI prophylaxis. Further recommendations as per clinical course of the patient DVT prophylaxis: Subcutaneous Lovenox GI Prophylaxis: Pepcid PT/OT: Pending Prognosis is guarded
[2021-10-10] MEDS: SYMBICORT 160-4.5 MCG INHALER INHALATION SCH (20:22)
[2021-10-10] MEDS: ALPRAZolam 0.25 MG TAB PO PRN (20:43)
[2021-10-10] MEDS: TIOTROPIUM 2.5 MCG INHALER INHALATION SCH (21:58)
[2021-10-11] MEDS: methylPREDNISolone SOD SUCCI 125 MG/2 ML VIAL IV SCH ×3 (05:06→17:25)
[2021-10-11] MEDS: ALBUTEROL HFA INHALER INHALATION SCH ×4 (08:23→22:36)
[2021-10-11] MEDS: SYMBICORT 160-4.5 MCG INHALER INHALATION SCH ×2 (08:23→22:36)
[2021-10-11] MEDS: FAMOTIDINE 20 MG TAB PO SCH (08:44)
[2021-10-11] MEDS: ASPIRIN 81 MG PO SCH (08:44)
[2021-10-11] MEDS: CEFEPIME 2 GM in SODIUM CHLORIDE 0.9% 100 ML IVPB SCH ×2 (08:44→15:01)
[2021-10-11] MEDS: ASCORBIC ACID 500 MG TAB PO SCH ×2 (08:44→21:02)
[2021-10-11] MEDS: METOPROLOL SUCCINATE (ER) 25 MG TAB.ER.24H PO SCH (08:44)
[2021-10-11] MEDS: ZINC SULFATE 220 MG CAP PO SCH (08:44)
[2021-10-11] MEDS: CHOLECALCIFEROL 25 MCG (1000 IU) TABLET PO SCH (08:44)
[2021-10-11] MEDS: ENOXAPARIN 40 MG/0.4 ML SYRINGE SQ SCH (08:47)
[2021-10-11] MEDS: ALPRAZolam 0.25 MG TAB PO PRN (08:53)
[2021-10-11 11:28] LABS: Glucose,Whole Blood 127 mg/dL (75-99)
[2021-10-11 11:40] LABS: ALT 24 U/L (4-34); AST 44 U/L (14-36); African American GFR (CKD) >90 (>60 ml/min/1.73 sqM); Albumin 2.9 g/dL (3.5-5.0); Alkaline Phosphatase 98 U/L (38-126); Anion Gap 11 mmol/L; Bilirubin, Delta 0.2 mg/dL (0.0-0.2); Bilirubin,Unconjugated 0.2 mg/dL (0.0-1.1); Blood Urea Nitrogen 28 mg/dL (7-17); C Reactive Protein 3.6 mg/dL (<1.0); Calcium 9.3 mg/dL (8.4-10.2); Carbon Dioxide 21 mmol/L (22-30); Chloride 112 mmol/L (98-107); Glucose 141 mg/dL (74-99); LDH 1208 U/L (313-618); Magnesium 2.3 mg/dL (1.6-2.3); Non-African American GFR(CKD) >90 (>60 ml/min/1.73 sqM); Potassium 3.7 mmol/L (3.5-5.1); Sodium 144 mmol/L (137-145); Total Bilirubin 0.4 mg/dL (0.2-1.3); Total Protein 5.4 g/dL (6.3-8.2)
[2021-10-11 11:42] LABS: Basophils % (A) 0 %; Eosinophils % (A) 0 %; HCT 38.5 % (34.0-46.0); HGB 12.4 gm/dL (11.4-16.0); Lymphocytes # (A) 0.1 k/uL (1.0-4.8); Lymphocytes % (A) 1 %; MCH 30.2 pg (25.0-35.0); MCHC 32.3 g/dL (31.0-37.0); MCV 93.5 fL (80.0-100.0); Mean Platelet Volume 9.7; Monocytes # (A) 0.5 k/uL (0-1.0); Monocytes % (A) 4 %; Neutrophils # (A) 11.6 k/uL (1.3-7.7); Neutrophils % (A) 95 %; Platelet Count 139 k/uL (150-450); RBC 4.11 m/uL (3.80-5.40); RDW 14.7 % (11.5-15.5); WBC 12.2 k/uL (3.8-10.6)
--- NOTE | 2021-10-11 12:29 | P.PN ---
Subjective Progress Note Date: 10/11/21 Principal diagnosis: COVID-19 pneumonia 66-year-old here patient with known history of advanced lymphoma, stage IV has been treated through oncology Center at [facility]. The patient also has advanced COPD as comorbid conditions. The patient was recently hospita liz for community related pneumonia. Our group was involved in her care. She was in the hospital between 09/23/2021 and 10/01/2021 and the patient was discharged home on 3 L of Oxymizer nasal cannula. During the course of her treatment, the patient received a combination of Decadron and Remdesivir. Ultimately the patient was discharged home. She was using a combination of Breo Ellipta and Spiriva regarding her COPD and she was using oxygen 3 L. As the patient came off the steroids, she became progressively more short of breath and over the past 24-48 hours she end up coming back to the hospital. Repeat COVID 19 testing was positive. Chest exit showed bilateral pulmonary infiltrates related to previous COVID 19 infection. Chest x-ray seemed to be significantly worse compared to her chest x-ray at the time of discharge. This may be progression of her COVID 19 pneumonia versus superinfection. ProBNP level is 1010 and the rest of the blood work shows a white cell count of 3.7 with a hemoglobin is 12.7 and a platelet count of 109. D-dimer was 1.66, BUN is at 80 with a creatinine of 0.3, sodium is 138, electrolytes were essentially within normal limits, troponins are 0.08-0.04 respectively, LDH 71,315, CRP level is at 20.4, TSH was 0.097 and LDH level was 1015. At this point in time, the patient is on 100% nonrebreather facemask. Her breathing seems to be labored even at rest. She was started on IV Solu-Medrol 60 mg every 6 hours. She is also on Lovenox 40 mg subcu for DVT prophylaxis. The patient is seen today 10/10/2021 in follow-up on the selective care unit. She is currently resting fairly comfortably in bed. She is on BiPAP 15/6 at 75% FiO2. She's 0.9 at 20 ML's per hour. Glucose 185. Magnesium 2.1. She remains on antibiotics in the form of cefepime. Continued on Lovenox, IV Solu-Medrol, vitamin supplements. She is continuing on Symbicort, Spiriva, albuterol. The patient is seen today 10/11/2021 in follow-up on the selective care unit. She is currently resting in bed. Awake and alert. She is still on BiPAP 15/6 and 80% FiO2 to maintain O2 saturation in the low 90s. She is not making much progress. she has been trialed on 15 L high flow nasal cannula +100% nonrebreather mask during meals. CT angiogram performed yesterday revealed no evidence of pulmonary embolism. There is severe emphysematous changes with diffuse bilateral groundglass infiltrates secondary to COVID-19 pneumonia. There is multinodular thyroid changes. Coronary artery calcification. Low attenuation of the liver. White count 12.2. Hemoglobin 12.4. lymphocytes 0.1. Sodium 144. Potassium 3.7. Creatinine 0.55. Glucose 141. AST 44. ALT 24. LDH 1208. C-reactive protein 3.6. She is continued on cefepime. Remains on Lovenox, IV Solu-Medrol, Symbicort and Spiriva, Ventolin. Continued on vitamin supplements. Objective - Vital Signs Vital signs: Vital Signs Temp 98.2 F 10/11/21 08:00 Pulse 105 H 10/11/21 08:00 Resp 24 10/11/21 08:00 BP 145/73 10/11/21 08:00 Pulse Ox 92 L 10/11/21 08:00 Intake & Output 10/10/21 10/11/21 10/11/21 18:59 06:59 18:59 Intake Total 1580 880 600 Output Total 200 Balance 1380 880 600 Weight 70 kg Intake: IV 200 100 Cefepime 2 gm In Sodium 200 100 Chloride 0.9% 100 ml @ 25 mls/hr IVPB Q8HR [facility] Rx# :[id number] Intake, IV Titration 240 Amount Sodium Chloride 0.9% 1, 240 000 ml @ 20 mls/hr IV . Q24H [facility] Rx#:[id number] Oral 1380 540 600 Output: Urine 200 Other: Voiding Method Diaper Diaper Diaper # Voids 2 1 # Bowel Movements 2 1 - Exam GENERAL EXAM: Alert, frail 66-year-old female, on BiPAP 15/6 and 80% FiO2, fairly comfortable in no apparent distress. HEAD: Normocephalic. EYES: Normal reaction of pupils, equal size. NOSE: Clear with pink turbinates. THROAT: No erythema or exudates. NECK: No masses, no JVD. CHEST: No chest wall deformity. Mediport in place. LUNGS: Equal air entry with coarse crackles in the posterior bases. CVS: S1 and S2 normal with no audible murmur, regular rhythm. ABDOMEN: No hepatosplenomegaly, normal bowel sounds, no guarding or rigidity. SPINE: No scoliosis or deformity SKIN: No rashes CENTRAL NERVOUS SYSTEM: No focal deficits, tone is normal in all 4 extremities. EXTREMITIES: There is no peripheral edema. No clubbing, no cyanosis. Peripheral pulses are intact. - Labs CBC & Chem 7: 10/11/21 11:02 10/11/21 11:02 Labs: Abnormal Lab Results - Last 24 Hours (Table) 10/10/21 10/11/21 10/11/21 Range/Units 16:33 11:02 11:02 WBC 12.2 H (3.8-10.6) k/uL Plt Count 139 L (150-450) k/uL Neutrophils # 11.6 H (1.3-7.7) k/uL Lymphocytes # 0.1 L (1.0-4.8) k/uL Chloride 112 H (98-107) mmol/L Carbon Dioxide 21 L (22-30) mmol/L BUN 28 H (7-17) mg/dL Glucose 141 H (74-99) mg/dL POC Glucose (mg/dL) 139 H (75-99) mg/dL AST 44 H (14-36) U/L Lactate Dehydrogenase 1208 H (313-618) U/L C-Reactive Protein 3.6 H (<1.0) mg/dL Total Protein 5.4 L (6.3-8.2) g/dL Albumin 2.9 L (3.5-5.0) g/dL 10/11/21 Range/Units 11:27 WBC (3.8-10.6) k/uL Plt Count (150-450) k/uL Neutrophils # (1.3-7.7) k/uL Lymphocytes # (1.0-4.8) k/uL Chloride (98-107) mmol/L Carbon Dioxide (22-30) mmol/L BUN (7-17) mg/dL Glucose (74-99) mg/dL POC Glucose (mg/dL) 127 H (75-99) mg/dL AST (14-36) U/L Lactate Dehydrogenase (313-618) U/L C-Reactive Protein (<1.0) mg/dL Total Protein (6.3-8.2) g/dL Albumin (3.5-5.0) g/dL Microbiology - Last 24 Hours (Table) 10/08/21 19:00 Blood Culture - Preliminary Blood No Growth after 48 hours 10/08/21 18:45 Blood Culture - Preliminary Blood No Growth after 48 hours Assessment and Plan Assessment: 1 Acute on chronic hypoxic respiratory failure, likely secondary to progression of her underlying COVID 19 related pneumonia with worsening oxygenation and development of further hypoxemia. Patient is currently on BiPAP 15/6 and 80% FiO2. Possibility of superinfection is considered to be less likely although cannot be completely occluded. She is on cefepime. CT angiogram on 10/10/2021 ruled out pulmonary embolism. There is diffuse bilateral infiltrates. Severe emphysematous changes. 2 COVID 19 pneumonia, diagnosed originally on 09/22/2021. 3 COPD with bilateral emphysematous changes based on a previous CAT scan of the chest and the patient is on a combination of Breo Ellipta and Spiriva on outpatient basis 4 Mild elevation of inflammatory markers, awaiting pro-calcitonin levels 5 History of stage IV lymphoma 6 Abnormal troponin, probably related to oxygen mismatch causing some troponin leak Plan: The patient was seen and evaluated Currently on BiPAP 15/6 and 80% FiO2 Continue Symbicort, Spiriva and albuterol Continue IV Solu-Medrol, Mucinex Remains on cefepime. Prognosis is quite guarded We will continue to follow I, the cosigning physician, performed a history & physical examination of the patient. Lungs sounds with crackles in the bilateral bases. Maintaining O2 saturations in the 90s on BiPAP 15/6 and 80% FiO2. I discussed the assessment and plan of care with my nurse practitioner, Kusum Blandon. I attest to the above note as dictated by her.
[2021-10-11] MEDS ORDERED: ALPRAZolam 0.5 MG TAB PO PRN (14:38)
[2021-10-11] MEDS ORDERED: ALPRAZolam 0.25 MG TAB PO PRN (14:38)
[2021-10-11] MEDS: SODIUM CHLORIDE 0.9% 1,000 ML IV SCH (15:02)
[2021-10-11 16:54] LABS: Glucose,Whole Blood 130 mg/dL (75-99)
--- NOTE | 2021-10-11 17:24 | P.PN ---
Subjective This is a pleasant 66 years old female with past medical history of stage IV lymphoma that she follow up with oncologist at [facility], COPD, she was recently discharged from hospital 09/23-10/01 for Covid pneumonia, discharge or 3 L oxygen per minute. And chest pain resolved upon discharge. Presents with a breathing difficulties since morning needed and BiPAP upon admission. Patient information was limited because of patient dyspnea and being on BiPAP. She denies chest pain however her main concerns was the dyspnea. She denies abdominal pain or diarrhea. She is fully awake and oriented but she is in respiratory distress. Patient further information were limited because of patient severe respiratory status On admission she was tachycardic, tachypneic and hypoxic and she was placed on BiPAP and tolerated that well Labs reviewed, she has unremarkable CBC except for mild thrombocytopenia 129 and improved pain is 0.4. INR 1.0. Sodium 136 and potassium 3.2, rest of BMP is unremarkable, different enzymes is not significantly elevated, troponin is elevated at 0.15, proBNP is 1010 and coronavirus detected EKG showing sinus tachycardia at 129. Chest x-ray showing bilateral infiltrates suspicious for Covid 19 infection. C hest x-ray showed significantly worse compared to last admission 10/10/2021 Patient still saw on BiPAP most of the time however she is telling me she is taking it off and she will eat. She still on BiPAP but FiO2 is lowered to 30% which is improvement compared to yesterday. CTA of the chest showing no PE, bilateral pneumonia. Multinodular goiter and hepatic steatosis. However liver enzymes are not elevated. She remains on Solu-Medrol, status and cefepime as well as multiple vitamins. 10/11/2021 Patient still on BiPAP this morning and trying to switch it to nasal cannula. Later on during the day she was placed on 30% high Flow nasal cannula and we will see her tolerance. Hemodynamically stable. Labs showing some improvement. WBC increase is worsened while on steroids. D-dimer is stable at 1.7, inflammatory markers trending down LDH 10/20/2007 and CRP 3.6. CTA yesterday is negative for PE. 7 Medrol 60 Mg and Cefepime While Proctoscopy Discussed, down to 0.19. Continue with Multiple Vitamins Objective - Vital Signs Vital signs: Vital Signs Temp 97.2 F L 10/11/21 15:04 Pulse 100 10/11/21 15:04 Resp 24 10/11/21 15:04 BP 138/90 10/11/21 15:04 Pulse Ox 91 L 10/11/21 15:04 Intake & Output 10/10/21 10/11/21 10/11/21 18:59 06:59 18:59 Intake Total 1580 880 860 Output Total 200 Balance 1380 880 860 Weight 70 kg Intake: IV 200 100 Cefepime 2 gm In Sodium 200 100 Chloride 0.9% 100 ml @ 25 mls/hr IVPB Q8HR [facility] Rx# :[id number] Intake, IV Titration 240 Amount Sodium Chloride 0.9% 1, 240 000 ml @ 20 mls/hr IV . Q24H [facility] Rx#:[id number] Oral 1380 540 860 Output: Urine 200 Other: Voiding Method Diaper Diaper Diaper # Voids 2 1 # Bowel Movements 2 1 - Exam -GENERAL: The patient is alert and oriented x3, in moderate to severe acute respiratory distress. Well developed, well nourished. HEENT: Pupils are round and equally reacting to light. EOMI. No scleral icterus. No conjunctival pallor. Normocephalic, atraumatic. No pharyngeal erythema. No thyromegaly. CARDIOVASCULAR: S1 and S2 present. No murmurs, rubs, or gallops. -PULMONARY: Chest is clear to auscultation, no wheezing or crackles. Decreased air entry and bilateral crepitation ABDOMEN: Soft, nontender, nondistended, normoactive bowel sounds. No palpable organomegaly. MUSCULOSKELETAL: No joint swelling or deformity. EXTREMITIES: No cyanosis, clubbing, or pedal edema. NEUROLOGICAL: Gross neurological examination did not reveal any focal deficits. SKIN: No rashes. No petechiae - Labs CBC & Chem 7: 10/11/21 11:02 10/11/21 11:02 Labs: Abnormal Lab Results - Last 24 Hours (Table) 10/10/21 10/11/21 10/11/21 Range/Units 16:33 11:02 11:02 WBC 12.2 H (3.8-10.6) k/uL Plt Count 139 L (150-450) k/uL Neutrophils # 11.6 H (1.3-7.7) k/uL Lymphocytes # 0.1 L (1.0-4.8) k/uL D-Dimer (<0.60) mg/L FEU Chloride 112 H (98-107) mmol/L Carbon Dioxide 21 L (22-30) mmol/L BUN 28 H (7-17) mg/dL Glucose 141 H (74-99) mg/dL POC Glucose (mg/dL) 139 H (75-99) mg/dL AST 44 H (14-36) U/L Lactate Dehydrogenase 1208 H (313-618) U/L C-Reactive Protein 3.6 H (<1.0) mg/dL Total Protein 5.4 L (6.3-8.2) g/dL Albumin 2.9 L (3.5-5.0) g/dL 10/11/21 10/11/21 Range/Units 11:02 11:27 WBC (3.8-10.6) k/uL Plt Count (150-450) k/uL Neutrophils # (1.3-7.7) k/uL Lymphocytes # (1.0-4.8) k/uL D-Dimer 1.78 H (<0.60) mg/L FEU Chloride (98-107) mmol/L Carbon Dioxide (22-30) mmol/L BUN (7-17) mg/dL Glucose (74-99) mg/dL POC Glucose (mg/dL) 127 H (75-99) mg/dL AST (14-36) U/L Lactate Dehydrogenase (313-618) U/L C-Reactive Protein (<1.0) mg/dL Total Protein (6.3-8.2) g/dL Albumin (3.5-5.0) g/dL Microbiology - Last 24 Hours (Table) 10/08/21 19:00 Blood Culture - Preliminary Blood No Growth after 48 hours 10/08/21 18:45 Blood Culture - Preliminary Blood No Growth after 48 hours Assessment and Plan Assessment: Bilateral Covid pneumonia Acute hypoxic respiratory failure Increased inflammatory markers Elevated troponin Stage IV lymphoma Plan: Bilateral Covid pneumonia and hypoxia Continue with vitamin C, vitamin D, and zinc. Continue with dexamethasone Pulmonary team consult Call cardiology consult Labs and medication were reviewed.. Continue same treatment. Continue with symptomatic treatment. Resume home medication. Monitor lytes and vitals. DVT and GI prophylaxis. Further recommendations as per clinical course of the patient DVT prophylaxis: Subcutaneous Lovenox GI Prophylaxis: Pepcid PT/OT: Pending Prognosis is guarded
[2021-10-11] MEDS: ALPRAZolam 0.5 MG TAB PO SCH (21:02)
[2021-10-11 21:11] LABS: Glucose,Whole Blood 144 mg/dL (75-99)
[2021-10-11] MEDS: INSULIN ASPART (NovoLOG) 100 UNIT/ML VIAL SQ SCH (21:45)
[2021-10-12] MEDS: methylPREDNISolone SOD SUCCI 125 MG/2 ML VIAL IV SCH ×2 (00:11→05:53)
[2021-10-12] MEDS: CEFEPIME 2 GM in SODIUM CHLORIDE 0.9% 100 ML IVPB SCH (00:11)
[2021-10-12] MEDS: ALPRAZolam 0.5 MG TAB PO SCH (05:22)
[2021-10-12] MEDS ORDERED: LORazepam 2 MG/ML INJ IV STA ×2 (05:35→07:45)
[2021-10-12 06:13] LABS: Glucose,Whole Blood 148 mg/dL (75-99)
[2021-10-12] MEDS: INSULIN ASPART (NovoLOG) 100 UNIT/ML VIAL SQ SCH (06:36)
[2021-10-12 06:53] VITALS: TEMP 97.6
[2021-10-12 07:33] LABS: Glucose,Whole Blood 143 mg/dL (75-99)
[2021-10-12 07:41] LABS: ABG Base Excess 0.1 mmol/L; ABG HCO3 24 mmol/L (21-25); ABG Oxygen Saturation 89.3 % (94-97); ABG PCO2 36 mmHg (35-45); ABG PH 7.44 (7.35-7.45); ABG TCO2 26 mmol/L (19-24); Allen Test Performed? Yes
[2021-10-12 07:46] LABS: ABG PO2 57 mmHg (83-108)
[2021-10-12] MEDS ORDERED: MORPHINE SULFATE 4 MG/ML SYRINGE IVP PRN (07:46)
[2021-10-12] MEDS ORDERED: LORazepam 2 MG/ML INJ IV PRN (07:49)
[2021-10-12] MEDS ORDERED: MORPHINE SULFATE 4 MG/ML SYRINGE IVP ONE (07:49)
--- NOTE | 2021-10-12 07:53 | P.EN ---
A- team: Indication: Hypoxia Arrived on Scene to find: Patient in respiratory distress Patient seen and examined at bedside. She reports feeling very short of breath, she denies any pain. She states that she wants BiPap off, but will not answer the question as to weather she just wants to be made comfortable. Vital signs reviewed General: non toxic, maximal distress, appears at stated age Derm: warm, dry Head: atraumatic, normocephalic, symmetric Eyes: EOMI, no lid lag, anicteric sclera Mouth: no lip lesion, mucus membranes moist Cardiovascular: S1S2 tachy, no murmur, positive posterior tibial pulse bilateral, Lungs: Decreased bs bilateral left>right, no rhonchi, no rales , + accessory muscle use, Belly breathing Psych: Alert, oriented, appropriate affect Assessment: COVID-19 Pneumonia Acute hypoxic respiratory failure Plan: ABG- reviewed with Hypoxia CXR- b/l intersitial infiltrates Ativan 1 mg given and Morphine 4 mg q4 hours ordered Dr Orellana Recommends DNR status, nursing updated over the phone and he agreed wtih DNR and comfot measures Disposition: remain on 3S and transition to comfort Notified: Dr. Orellana Nursing notified and Dr. Gutiérrez from admitting team who will write comfort orders A Total of 32 minutes of critical care time was spent on the complex care of this patient.
[2021-10-12] MEDS ORDERED: MORPHINE SULFATE (100 MG/2 ML) 100 MG in SODIUM CHLORIDE 0.9% 100 ML IV SCH (08:00)
[2021-10-12 08:13] LABS: HCT 38.1 % (34.0-46.0); HGB 12.2 gm/dL (11.4-16.0); Hypochromasia Slight; MCH 30.1 pg (25.0-35.0); MCHC 31.9 g/dL (31.0-37.0); MCV 94.3 fL (80.0-100.0); Mean Platelet Volume 9.7; Platelet Count 134 k/uL (150-450); RBC 4.04 m/uL (3.80-5.40); RDW 14.5 % (11.5-15.5); WBC 10.2 k/uL (3.8-10.6)
[2021-10-12 08:16] LABS: ALT 26 U/L (4-34); AST 47 U/L (14-36); African American GFR (CKD) >90 (>60 ml/min/1.73 sqM); Alkaline Phosphatase 113 U/L (38-126); Anion Gap 10 mmol/L; Blood Urea Nitrogen 28 mg/dL (7-17); C Reactive Protein 4.7 mg/dL (<1.0); Calcium 9.4 mg/dL (8.4-10.2); Carbon Dioxide 22 mmol/L (22-30); Chloride 112 mmol/L (98-107); Glucose 156 mg/dL (74-99); LDH 1391 U/L (313-618); Magnesium 2.3 mg/dL (1.6-2.3); Non-African American GFR(CKD) >90 (>60 ml/min/1.73 sqM); Phosphorus 2.9 mg/dL (2.5-4.5); Potassium 3.5 mmol/L (3.5-5.1); Sodium 144 mmol/L (137-145); Total Bilirubin 0.5 mg/dL (0.2-1.3); Total Protein 5.5 g/dL (6.3-8.2)
[2021-10-12 08:24] VITALS: BP 156/88
[2021-10-12 08:27] VITALS: PULSE 120
--- NOTE | 2021-10-12 08:39 | XR ---
EXAMINATION TYPE: XR chest 1V DATE OF EXAM: 10/12/2021 COMPARISON: 10/09/2021 HISTORY: 66 years Female. STUDY INDICATION GIVEN: dyspnea . TECHNIQUE: AP upright chest radiograph IMPRESSION: Slightly worsened interstitial and airspace opacities in the right lower hemithorax. Stable left lary thorax interstitial and airspace opacities. COPD/emphysema changes noted without significant change. No pneumothorax or large effusion. Cardiomediastinal silhouette normal. Atherosclerotic aortic disease noted. Left portacatheter tip stable in the inferior SVC. Generalized bony demineralization. No acute osseous abnormality.
[2021-10-12] MEDS: TIOTROPIUM 2.5 MCG INHALER INHALATION SCH (08:45)
[2021-10-12] MEDS: MORPHINE SULFATE (100 MG/2 ML) 100 MG in SODIUM CHLORIDE 0.9% 100 ML IV SCH ×2 (08:57→16:18)
[2021-10-12] MEDS: LORazepam 2 MG/ML INJ IV PRN ×2 (09:44→16:33)
--- NOTE | 2021-10-12 10:06 | P.PN ---
Subjective Progress Note Date: 10/12/21 Principal diagnosis: COVID-19 pneumonia 66-year-old here patient with known history of advanced lymphoma, stage IV has been treated through oncology Center at [facility]. The patient also has advanced COPD as comorbid conditions. The patient was recently hospita liz for community related pneumonia. Our group was involved in her care. She was in the hospital between 09/23/2021 and 10/01/2021 and the patient was discharged home on 3 L of Oxymizer nasal cannula. During the course of her treatment, the patient received a combination of Decadron and Remdesivir. Ultimately the patient was discharged home. She was using a combination of Breo Ellipta and Spiriva regarding her COPD and she was using oxygen 3 L. As the patient came off the steroids, she became progressively more short of breath and over the past 24-48 hours she end up coming back to the hospital. Repeat COVID 19 testing was positive. Chest exit showed bilateral pulmonary infiltrates related to previous COVID 19 infection. Chest x-ray seemed to be significantly worse compared to her chest x-ray at the time of discharge. This may be progression of her COVID 19 pneumonia versus superinfection. ProBNP level is 1010 and the rest of the blood work shows a white cell count of 3.7 with a hemoglobin is 12.7 and a platelet count of 109. D-dimer was 1.66, BUN is at 80 with a creatinine of 0.3, sodium is 138, electrolytes were essentially within normal limits, troponins are 0.08-0.04 respectively, LDH 71,315, CRP level is at 20.4, TSH was 0.097 and LDH level was 1015. At this point in time, the patient is on 100% nonrebreather facemask. Her breathing seems to be labored even at rest. She was started on IV Solu-Medrol 60 mg every 6 hours. She is also on Lovenox 40 mg subcu for DVT prophylaxis. The patient is seen today 10/10/2021 in follow-up on the selective care unit. She is currently resting fairly comfortably in bed. She is on BiPAP 15/6 at 75% FiO2. She's 0.9 at 20 ML's per hour. Glucose 185. Magnesium 2.1. She remains on antibiotics in the form of cefepime. Continued on Lovenox, IV Solu-Medrol, vitamin supplements. She is continuing on Symbicort, Spiriva, albuterol. The patient is seen today 10/11/2021 in follow-up on the selective care unit. She is currently resting in bed. Awake and alert. She is still on BiPAP 15/6 and 80% FiO2 to maintain O2 saturation in the low 90s. She is not making much progress. she has been trialed on 15 L high flow nasal cannula +100% nonrebreather mask during meals. CT angiogram performed yesterday revealed no evidence of pulmonary embolism. There is severe emphysematous changes with diffuse bilateral groundglass infiltrates secondary to COVID-19 pneumonia. There is multinodular thyroid changes. Coronary artery calcification. Low attenuation of the liver. White count 12.2. Hemoglobin 12.4. lymphocytes 0.1. Sodium 144. Potassium 3.7. Creatinine 0.55. Glucose 141. AST 44. ALT 24. LDH 1208. C-reactive protein 3.6. She is continued on cefepime. Remains on Lovenox, IV Solu-Medrol, Symbicort and Spiriva, Ventolin. Continued on vitamin supplements. The patient is seen today 10/12/2021 in follow-up on the selective care unit. She was having issues with restlessness and pulling off her mask pulling off her oxygen with significant desaturations and a rapid response team was called on her this morning. chest x-ray reveals slightly worsened interstitial and airspace opacities in the right lower lobe. Stable left hemithorax interstitial and airspace opacities. Underlying COPD/emphysema on top of the COVID-19 pneumonia. Arterial blood gases revealed a PaO2 of 57, pCO2 36 and a pH of 7.44 on 100% FiO2. White count 10.2. Hemoglobin 12.2. D-dimer 2.19. Sodium 144. Potassium 3.5. Creatinine 0.49. Glucose 143. LDH 1391. C-reactive protein 4.7. Currently, she is back on BiPAP 15/6 in the 100% FiO2 to maintain O2 saturations in the mid to upper 80s. Her respiratory rate is 45. She was given morphine and Ativan and is a bit more calm and comfortable. Staff did speak to her . She is a DO NOT RESUSCITATE/DO NOT INTUBATE CODE STATUS. Objective - Vital Signs Vital signs: Vital Signs Temp 97.6 F 10/12/21 04:00 Pulse 120 H 10/12/21 07:20 Resp 50 H 10/12/21 07:30 BP 156/88 10/12/21 05:35 Pulse Ox 82 L 10/12/21 07:20 Intake & Output 10/11/21 10/12/21 10/12/21 18:59 06:59 18:59 Intake Total 1060 42.873 Balance 1060 42.873 Weight 70 kg Intake: IV 40 Invasive Line 2 40 Intake, IV Titration 2.873 Amount Morphine Sulfate (100 mg/ 2.873 2 ml) 100 mg In Sodium Chloride 0.9% 100 ml @ 1 MG/HR 1.02 mls/hr IV . Q24H [facility] Rx#:[id number] Oral 1060 Other: Voiding Method Diaper Diaper Diaper # Voids 1 1 - Exam GENERAL EXAM: Alert, anxious, 66-year-old female, on BiPAP 15/6 and 100% FiO2, in moderate respiratory distress. HEAD: Normocephalic. EYES: Normal reaction of pupils, equal size. NOSE: Clear with pink turbinates. THROAT: No erythema or exudates. NECK: No masses, no JVD. CHEST: No chest wall deformity. Mediport in place. LUNGS: Equal air entry with coarse crackles in the posterior bases. CVS: S1 and S2 normal with no audible murmur, regular rhythm. ABDOMEN: No hepatosplenomegaly, normal bowel sounds, no guarding or rigidity. SPINE: No scoliosis or deformity SKIN: No rashes CENTRAL NERVOUS SYSTEM: No focal deficits, tone is normal in all 4 extremities. EXTREMITIES: There is no peripheral edema. No clubbing, no cyanosis. Peripheral pulses are intact. - Labs CBC & Chem 7: 10/12/21 07:41 10/12/21 07:42 Labs: Abnormal Lab Results - Last 24 Hours (Table) 10/11/21 10/11/21 10/11/21 Range/Units 11:02 11:02 11:02 WBC 12.2 H (3.8-10.6) k/uL Plt Count 139 L (150-450) k/uL Neutrophils # 11.6 H (1.3-7.7) k/uL Lymphocytes # 0.1 L (1.0-4.8) k/uL D-Dimer (<0.60) mg/L FEU ABG pO2 (83-108) mmHg ABG Total CO2 (19-24) mmol/L ABG O2 Saturation (94-97) % Chloride 112 H (98-107) mmol/L Carbon Dioxide 21 L (22-30) mmol/L BUN 28 H (7-17) mg/dL Creatinine (0.52-1.04) mg/dL Glucose 141 H (74-99) mg/dL POC Glucose (mg/dL) (75-99) mg/dL AST 44 H (14-36) U/L Lactate Dehydrogenase 1208 H (313-618) U/L C-Reactive Protein 3.6 H (<1.0) mg/dL Total Protein 5.4 L (6.3-8.2) g/dL Albumin 2.9 L (3.5-5.0) g/dL Procalcitonin 0.19 H (0.02-0.09) ng/mL 10/11/21 10/11/21 10/11/21 Range/Units 11:02 11:27 16:53 WBC (3.8-10.6) k/uL Plt Count (150-450) k/uL Neutrophils # (1.3-7.7) k/uL Lymphocytes # (1.0-4.8) k/uL D-Dimer 1.78 H (<0.60) mg/L FEU ABG pO2 (83-108) mmHg ABG Total CO2 (19-24) mmol/L ABG O2 Saturation (94-97) % Chloride (98-107) mmol/L Carbon Dioxide (22-30) mmol/L BUN (7-17) mg/dL Creatinine (0.52-1.04) mg/dL Glucose (74-99) mg/dL POC Glucose (mg/dL) 127 H 130 H (75-99) mg/dL AST (14-36) U/L Lactate Dehydrogenase (313-618) U/L C-Reactive Protein (<1.0) mg/dL Total Protein (6.3-8.2) g/dL Albumin (3.5-5.0) g/dL Procalcitonin (0.02-0.09) ng/mL 10/11/21 10/12/21 10/12/21 Range/Units 20:54 06:03 07:31 WBC (3.8-10.6) k/uL Plt Count (150-450) k/uL Neutrophils # (1.3-7.7) k/uL Lymphocytes # (1.0-4.8) k/uL D-Dimer (<0.60) mg/L FEU ABG pO2 (83-108) mmHg ABG Total CO2 (19-24) mmol/L ABG O2 Saturation (94-97) % Chloride (98-107) mmol/L Carbon Dioxide (22-30) mmol/L BUN (7-17) mg/dL Creatinine (0.52-1.04) mg/dL Glucose (74-99) mg/dL POC Glucose (mg/dL) 144 H 148 H 143 H (75-99) mg/dL AST (14-36) U/L Lactate Dehydrogenase (313-618) U/L C-Reactive Protein (<1.0) mg/dL Total Protein (6.3-8.2) g/dL Albumin (3.5-5.0) g/dL Procalcitonin (0.02-0.09) ng/mL 10/12/21 10/12/21 10/12/21 Range/Units 07:38 07:41 07:42 WBC (3.8-10.6) k/uL Plt Count 134 L (150-450) k/uL Neutrophils # (1.3-7.7) k/uL Lymphocytes # (1.0-4.8) k/uL D-Dimer (<0.60) mg/L FEU ABG pO2 57 L* (83-108) mmHg ABG Total CO2 26 H (19-24) mmol/L ABG O2 Saturation 89.3 L (94-97) % Chloride 112 H (98-107) mmol/L Carbon Dioxide (22-30) mmol/L BUN 28 H (7-17) mg/dL Creatinine 0.49 L (0.52-1.04) mg/dL Glucose 156 H (74-99) mg/dL POC Glucose (mg/dL) (75-99) mg/dL AST 47 H (14-36) U/L Lactate Dehydrogenase 1391 H (313-618) U/L C-Reactive Protein 4.7 H (<1.0) mg/dL Total Protein 5.5 L (6.3-8.2) g/dL Albumin 3.0 L (3.5-5.0) g/dL Procalcitonin (0.02-0.09) ng/mL 10/12/21 Range/Units 07:42 WBC (3.8-10.6) k/uL Plt Count (150-450) k/uL Neutrophils # (1.3-7.7) k/uL Lymphocytes # (1.0-4.8) k/uL D-Dimer 2.19 H (<0.60) mg/L FEU ABG pO2 (83-108) mmHg ABG Total CO2 (19-24) mmol/L ABG O2 Saturation (94-97) % Chloride (98-107) mmol/L Carbon Dioxide (22-30) mmol/L BUN (7-17) mg/dL Creatinine (0.52-1.04) mg/dL Glucose (74-99) mg/dL POC Glucose (mg/dL) (75-99) mg/dL AST (14-36) U/L Lactate Dehydrogenase (313-618) U/L C-Reactive Protein (<1.0) mg/dL Total Protein (6.3-8.2) g/dL Albumin (3.5-5.0) g/dL Procalcitonin (0.02-0.09) ng/mL Microbiology - Last 24 Hours (Table) 10/08/21 18:45 Blood Culture - Preliminary Blood No Growth after 72 hours 10/08/21 19:00 Blood Culture - Preliminary Blood No Growth after 72 hours Assessment and Plan Assessment: 1 Acute on chronic hypoxic respiratory failure, likely secondary to progression of her underlying COVID 19 related pneumonia with worsening oxygenation and deve lopment of further hypoxemia. Patient is currently on BiPAP 15/6 and 100% FiO2. Arterial blood gases revealed a PaO2 of 57, pCO2 36, pH 7.44 on 100% FiO2. Chest x-ray today showing worsening infiltrates on the right. Possibility of superinfection is considered to be less likely although cannot be completely occluded. She is on cefepime. CT angiogram on 10/10/2021 ruled out pulmonary embolism. There is diffuse bilateral infiltrates. Severe emphysematous changes. This morning the patient kept pulling off her oxygen and was having significant desaturations. She was given morphine and Ativan and currently back on BiPAP. She is a DO NOT RESUSCITATE/DO NOT INTUBATE CODE STATUS. Family is considering comfort care 2 COVID 19 pneumonia, diagnosed originally on 09/22/2021. 3 COPD with bilateral emphysematous changes based on a previous CAT scan of the chest and the patient is on a combination of Breo Ellipta and Spiriva on outpatient basis 4 Mild elevation of inflammatory markers, awaiting pro-calcitonin levels 5 History of stage IV lymphoma 6 Abnormal troponin, probably related to oxygen mismatch causing some troponin leak Plan: The patient was seen and evaluated Currently on BiPAP 15/6 and 100% FiO2 Restless requiring Ativan and morphine DO NOT RESUSCITATE/DO NOT INTUBATE CODE STATUS Family is considering comfort care Prognosis is quite poor I, the cosigning physician, performed a history & physical examination of the patient. Lungs sounds with crackles in the bilateral bases. Maintaining O2 saturations in the 90s on BiPAP 15/6 and 100% FiO2. I discussed the assessment and plan of care with my nurse practitioner, Kusum Blandon. I attest to the above note as dictated by her.
--- NOTE | 2021-10-12 10:41 | P.PN ---
Subjective This is a pleasant 66 years old female with past medical history of stage IV lymphoma that she follow up with oncologist at [facility], COPD, she was recently discharged from hospital 09/23-10/01 for Covid pneumonia, discharge or 3 L oxygen per minute. And chest pain resolved upon discharge. Presents with a breathing difficulties since morning needed and BiPAP upon admission. Patient information was limited because of patient dyspnea and being on BiPAP. She denies chest pain however her main concerns was the dyspnea. She denies abdominal pain or diarrhea. She is fully awake and oriented but she is in respiratory distress. Patient further information were limited because of patient severe respiratory status On admission she was tachycardic, tachypneic and hypoxic and she was placed on BiPAP and tolerated that well Labs reviewed, she has unremarkable CBC except for mild thrombocytopenia 129 and improved pain is 0.4. INR 1.0. Sodium 136 and potassium 3.2, rest of BMP is unremarkable, different enzymes is not significantly elevated, troponin is elevated at 0.15, proBNP is 1010 and coronavirus detected EKG showing sinus tachycardia at 129. Chest x-ray showing bilateral infiltrates suspicious for Covid 19 infection. C hest x-ray showed significantly worse compared to last admission 10/10/2021 Patient still saw on BiPAP most of the time however she is telling me she is taking it off and she will eat. She still on BiPAP but FiO2 is lowered to 30% which is improvement compared to yesterday. CTA of the chest showing no PE, bilateral pneumonia. Multinodular goiter and hepatic steatosis. However liver enzymes are not elevated. She remains on Solu-Medrol, status and cefepime as well as multiple vitamins. 10/11/2021 Patient still on BiPAP this morning and trying to switch it to nasal cannula. Later on during the day she was placed on 30% high Flow nasal cannula and we will see her tolerance. Hemodynamically stable. Labs showing some improvement. WBC increase is worsened while on steroids. D-dimer is stable at 1.7, inflammatory markers trending down LDH 10/20/2007 and CRP 3.6. CTA yesterday is negative for PE. 7 Medrol 60 Mg and Cefepime While Proctoscopy Discussed, down to 0.19. Continue with Multiple Vitamins 10/12/2021 Patient went into respiratory distress earlier this morning, she was tachypneic at 50 breath per minute, ABG showing significant hypoxia with pO2 of 57 and normal pH of 7.4. At this point patient and family have to decide whether intubation are normal. Patient and family decided with comfort care. When I went [facility] the patient was on BiPAP and a slight distress. at bedside and he confirmed to me the patient is to be DO NOT RESUSCITATE and to pursue with comfort care measures, I talked to him about the concept of comfort care and he verbalized that to allow the patient comfortably. All his questions were answered to his satisfaction. Discussed with the bedside nurse paged to start comfort care measures Objective - Vital Signs Vital signs: Vital Signs Temp 97.6 F 10/12/21 04:00 Pulse 120 H 10/12/21 07:20 Resp 50 H 10/12/21 07:30 BP 156/88 10/12/21 05:35 Pulse Ox 82 L 10/12/21 07:20 Intake & Output 10/11/21 10/12/21 10/12/21 18:59 06:59 18:59 Intake Total 1060 49.945 Balance 1060 49.945 Weight 70 kg Intake: IV 40 Invasive Line 2 40 Intake, IV Titration 9.945 Amount Morphine Sulfate (100 mg/ 9.945 2 ml) 100 mg In Sodium Chloride 0.9% 100 ml @ 1 MG/HR 1.02 mls/hr IV . Q24H [facility] Rx#:[id number] Oral 1060 Other: Voiding Method Diaper Diaper Diaper # Voids 1 1 - Exam -GENERAL: The patient is alert and oriented x3, in moderate to severe acute respiratory distress. Well developed, well nourished. HEENT: Pupils are round and equally reacting to light. EOMI. No scleral icterus. No conjunctival pallor. Normocephalic, atraumatic. No pharyngeal erythema. No thyromegaly. CARDIOVASCULAR: S1 and S2 present. No murmurs, rubs, or gallops. -PULMONARY: Chest is clear to auscultation, no wheezing or crackles. Decreased air entry and bilateral crepitation ABDOMEN: Soft, nontender, nondistended, normoactive bowel sounds. No palpable organomegaly. MUSCULOSKELETAL: No joint swelling or deformity. EXTREMITIES: No cyanosis, clubbing, or pedal edema. NEUROLOGICAL: Gross neurological examination did not reveal any focal deficits. SKIN: No rashes. No petechiae - Labs CBC & Chem 7: 10/12/21 07:41 10/12/21 07:42 Labs: Abnormal Lab Results - Last 24 Hours (Table) 10/11/21 10/11/21 10/11/21 Range/Units 11:02 11:02 11:02 WBC 12.2 H (3.8-10.6) k/uL Plt Count 139 L (150-450) k/uL Neutrophils # 11.6 H (1.3-7.7) k/uL Lymphocytes # 0.1 L (1.0-4.8) k/uL D-Dimer (<0.60) mg/L FEU ABG pO2 (83-108) mmHg ABG Total CO2 (19-24) mmol/L ABG O2 Saturation (94-97) % Chloride 112 H (98-107) mmol/L Carbon Dioxide 21 L (22-30) mmol/L BUN 28 H (7-17) mg/dL Creatinine (0.52-1.04) mg/dL Glucose 141 H (74-99) mg/dL POC Glucose (mg/dL) (75-99) mg/dL AST 44 H (14-36) U/L Lactate Dehydrogenase 1208 H (313-618) U/L C-Reactive Protein 3.6 H (<1.0) mg/dL Total Protein 5.4 L (6.3-8.2) g/dL Albumin 2.9 L (3.5-5.0) g/dL Procalcitonin 0.19 H (0.02-0.09) ng/mL 10/11/21 10/11/21 10/11/21 Range/Units 11:02 11:27 16:53 WBC (3.8-10.6) k/uL Plt Count (150-450) k/uL Neutrophils # (1.3-7.7) k/uL Lymphocytes # (1.0-4.8) k/uL D-Dimer 1.78 H (<0.60) mg/L FEU ABG pO2 (83-108) mmHg ABG Total CO2 (19-24) mmol/L ABG O2 Saturation (94-97) % Chloride (98-107) mmol/L Carbon Dioxide (22-30) mmol/L BUN (7-17) mg/dL Creatinine (0.52-1.04) mg/dL Glucose (74-99) mg/dL POC Glucose (mg/dL) 127 H 130 H (75-99) mg/dL AST (14-36) U/L Lactate Dehydrogenase (313-618) U/L C-Reactive Protein (<1.0) mg/dL Total Protein (6.3-8.2) g/dL Albumin (3.5-5.0) g/dL Procalcitonin (0.02-0.09) ng/mL 10/11/21 10/12/21 10/12/21 Range/Units 20:54 06:03 07:31 WBC (3.8-10.6) k/uL Plt Count (150-450) k/uL Neutrophils # (1.3-7.7) k/uL Lymphocytes # (1.0-4.8) k/uL D-Dimer (<0.60) mg/L FEU ABG pO2 (83-108) mmHg ABG Total CO2 (19-24) mmol/L ABG O2 Saturation (94-97) % Chloride (98-107) mmol/L Carbon Dioxide (22-30) mmol/L BUN (7-17) mg/dL Creatinine (0.52-1.04) mg/dL Glucose (74-99) mg/dL POC Glucose (mg/dL) 144 H 148 H 143 H (75-99) mg/dL AST (14-36) U/L Lactate Dehydrogenase (313-618) U/L C-Reactive Protein (<1.0) mg/dL Total Protein (6.3-8.2) g/dL Albumin (3.5-5.0) g/dL Procalcitonin (0.02-0.09) ng/mL 10/12/21 10/12/21 10/12/21 Range/Units 07:38 07:41 07:42 WBC (3.8-10.6) k/uL Plt Count 134 L (150-450) k/uL Neutrophils # (1.3-7.7) k/uL Lymphocytes # (1.0-4.8) k/uL D-Dimer (<0.60) mg/L FEU ABG pO2 57 L* (83-108) mmHg ABG Total CO2 26 H (19-24) mmol/L ABG O2 Saturation 89.3 L (94-97) % Chloride 112 H (98-107) mmol/L Carbon Dioxide (22-30) mmol/L BUN 28 H (7-17) mg/dL Creatinine 0.49 L (0.52-1.04) mg/dL Glucose 156 H (74-99) mg/dL POC Glucose (mg/dL) (75-99) mg/dL AST 47 H (14-36) U/L Lactate Dehydrogenase 1391 H (313-618) U/L C-Reactive Protein 4.7 H (<1.0) mg/dL Total Protein 5.5 L (6.3-8.2) g/dL Albumin 3.0 L (3.5-5.0) g/dL Procalcitonin (0.02-0.09) ng/mL 10/12/21 Range/Units 07:42 WBC (3.8-10.6) k/uL Plt Count (150-450) k/uL Neutrophils # (1.3-7.7) k/uL Lymphocytes # (1.0-4.8) k/uL D-Dimer 2.19 H (<0.60) mg/L FEU ABG pO2 (83-108) mmHg ABG Total CO2 (19-24) mmol/L ABG O2 Saturation (94-97) % Chloride (98-107) mmol/L Carbon Dioxide (22-30) mmol/L BUN (7-17) mg/dL Creatinine (0.52-1.04) mg/dL Glucose (74-99) mg/dL POC Glucose (mg/dL) (75-99) mg/dL AST (14-36) U/L Lactate Dehydrogenase (313-618) U/L C-Reactive Protein (<1.0) mg/dL Total Protein (6.3-8.2) g/dL Albumin (3.5-5.0) g/dL Procalcitonin (0.02-0.09) ng/mL Microbiology - Last 24 Hours (Table) 10/08/21 18:45 Blood Culture - Preliminary Blood No Growth after 72 hours 10/08/21 19:00 Blood Culture - Preliminary Blood No Growth after 72 hours Assessment and Plan Assessment: End of life care, comfort care measures Bilateral Covid pneumonia Acute hypoxic respiratory failure Increased inflammatory markers Elevated troponin Stage IV lymphoma Plan: Bilateral Covid pneumonia and hypoxia Continue with comfort care measures Continue with oxygen Fontenot catheter placed. Pulmonary team consult Call cardiology consult Labs and medication were reviewed.. Continue same treatment. Continue with symptomatic treatment. Resume home medication. Monitor lytes and vitals. DVT and GI prophylaxis. Further recommendations as per clinical course of the patient Patient is DO NOT RESUSCITATE Prognosis is guarded and very poor
[2021-10-12 16:37] VITALS: RESP 24
[2021-10-12] MEDS: SODIUM CHLORIDE 0.9% 1,000 ML IV SCH (17:53)
== END 2021-10-12 20:58 | disposition expired | DRG 177 ==
LOC: EC 15:38 → 3SCARD 17:27
PROVIDERS: ADMIT Internal Medicine; ATTEND Internal Medicine
PROC: 5A09357 Assistance with Respiratory Ventilation, Less than 24 Consecutive Hours, Continuous Positive Airway Pressure (ICD-10-PCS; principal; 2021-10-08)
PROC: 5A0935A Assistance with Respiratory Ventilation, Less than 24 Consecutive Hours, High Flow/Velocity Cannula (ICD-10-PCS; 2021-10-10)
DX: U07.1 COVID-19 (principal); J12.82 Pneumonia due to coronavirus disease 2019; J96.21 Acute and chronic respiratory failure with hypoxia; C85.90 Non-Hodgkin lymphoma, unspecified, unspecified site; D69.6 Thrombocytopenia, unspecified; E04.2 Nontoxic multinodular goiter; E87.6 Hypokalemia; F17.200 Nicotine dependence, unspecified, uncomplicated; I25.10 Atherosclerotic heart disease of native coronary artery without angina pectoris; J43.9 Emphysema, unspecified; K76.0 Fatty (change of) liver, not elsewhere classified; Z51.5 Encounter for palliative care; Z66 Do not resuscitate; Z79.82 Long term (current) use of aspirin; Z96.1 Presence of intraocular lens; R77.8 Other specified abnormalities of plasma proteins
CPT/HCPCS: 36415; 36600; 71045; 71275; 80048; 80053; 80076; 82805; 83605; 83615; 83735; 83880; 84100; 84145; 84439; 84443; 84484; 85025; 85027; 85379; 85610; 85730; 86140; 87040; 87635; 93005; 94640; 94660; 94760; 96365; 96366; 96368; 96375; 99291